=== PATIENT | male | born 1975 | race American Indian/Alaskan Native ===

== ENCOUNTER 2020-12-11 15:11 | Inpatient (IN) | payer MEDICAID ==
[2020-12-11] MEDS ORDERED: ONDANSETRON 4 MG/2 ML INJ IV ONE (21:37)
--- NOTE | 2020-12-11 21:42 | Emergency Department Report ---
ED General Adult HPI - General Chief complaint: Altered Mental Status Stated complaint: Patient is altered, and is grunting. PUI?: No Time Seen by Provider: 12/11/20 21:21 Source: EMS ( EMS documentation not available at time of chart dictation ), RN notes reviewed Mode of arrival: Stretcher Limitations: Altered Mental Status, Physical Limitation - History of Present Illness Initial comments: The patient was evaluated in the emergency department for symptoms described in the history of present illness. He/she was evaluated in the context of the global COVID-19 pandemic, which necessitated consideration that the patient mi ght be at risk for infection with the virus that causes COVID-19. Institutional protocols and algorithms that pertain to the evaluation of patients at risk for COVID-19 are in a state of rapid change based on information released by regulatory bodies including the CDC and federal and state organizations. These policies and algorithms were followed during the patient's care in the emergency department. Please note that these policies, procedures and recommendations changed on a rapid basis. Patient is a 45-year-old gentleman. The patient is altered. He is not accompanied by friends or family at this time for collateral information. He appears to have a history of diabetes, hypertension, and end-stage renal disease on hemodialysis. It is not known who or where provides his dialysis. It is not known what days he receives dialysis. Nursing team informed him that patient was brought here by EMS on a backboard for hyperglycemia. EMS documentation is not available at this time for my review. It is not known who contacted 911. Currently, the patient is awake, but will not or cannot answer my questions. He grunts intermittently. He will move 4 extremities. He was rolled off of the backboard, and said "hey man, leave me alone!" Additional history is not available at this time. Patient is not able to describe qualitative nature of symptoms, exacerbating factors, leaving factors, or aggravating factors -: unknown Severity scale (0 -10): 5 - Related Data Allergies Allergy/AdvReac Type Severity Reaction Status Date / Time Unable to Assess Allergy Verified 12/11/20 22:54 ED Review of Systems ROS: Stated complaint: HYPERGLYCEMIA Other details as noted in HPI Comment: Unobtainable due to pts medical conditions ED Past Medical Hx - Past Medical History Previous Medical History?: Yes Hx Hypertension: Yes Hx Congestive Heart Failure: Yes Hx Diabetes: Yes Hx GERD: Yes Hx Renal Disease: Yes Additional medical history: AMPUTEE - Surgical History Past Surgical History?: Yes Additional Surgical History: AMBUTEE ED Physical Exam - General Limitations: Altered Mental Status, Physical Limitation General appearance: obese, other (The patient is awake. The patient is minimally verbal. He is grunting. When turned over, he yells at the examiner) - Head Head exam: Present: atraumatic, normocephalic - Eye Eye exam: Present: normal appearance, EOMI, other (Patient closes his eyes very tightly when examined, not able to assess pupillary response) - ENT ENT exam: Present: normal exam, normal orophraynx, mucous membranes moist, normal external ear exam - Neck Neck exam: Present: normal inspection, full ROM. Absent: tenderness, meningismus - Respiratory Respiratory exam: Present: decreased breath sounds. Absent: respiratory distress, wheezes, rales, rhonchi, stridor - Cardiovascular Cardiovascular Exam: Present: normal rhythm, tachycardia, normal heart sounds. Absent: bradycardia, irregular rhythm, systolic murmur, diastolic murmur, rubs, gallop - GI/Abdominal GI/Abdominal exam: Present: soft. Absent: distended, tenderness, guarding, rebound, rigid, pulsatile mass - Rectal Rectal exam: Present: normal inspection - exam: Present: normal inspection External exam: Present: normal external exam - Extremities Exam Extremities exam: Present: normal inspection, full ROM, pedal edema (2+ edema in the right lower extremity. Left lower extremity status post below-knee amputation. Chronic venous stasis noted in the bilateral lower extremities. Left upper extremity fistula noted, without redness, pus or streaking. There is an appropriate thrill), other (2+ pulses noted in the bilateral upper and lower extremities. 2+ pulses noted in the bilateral upper and lower extremities. There is no palpable cord. negative Homans sign. Muscular compartments are soft. The pelvis is stable.) - Back Exam Back exam: Present: normal inspection. Absent: tenderness, CVA tenderness (R), CVA tenderness (L), paraspinal tenderness, vertebral tenderness - Neurological Exam Neurological exam: Present: altered, other (The patient moves 4 extremities. There is no facial droop. The patient exclaims "hey" when examined. Detailed neurologic examination not possible secondary to alteration mental status) - Skin Skin exam: Present: warm, dry, intact, normal color. Absent: rash ED Course Vital Signs 12/11/20 12/12/20 21:20 00:57 Temperature 98.2 F 97.5 F L Pulse Rate 87 82 Respiratory 20 21 Rate Blood Pressure 151/75 160/76 [Right] O2 Sat by Pulse 100 98 Oximetry - Reevaluation(s) Reevaluation #1: 12/11/20 21:42 Differential diagnosis, including but not limited to: Toxic encephalopathy, metabolic encephalopathy, hypoglycemia, intracranial hemorrhage, stroke, pneumonia, urinary tract infection Assessment and plan: 45-year-old gentleman, moving 4 extremities, altered, last known well time not known, with alteration in mental status, and report of hyperglycemia as per nursing team. Place patient on cardiac rn. Obtain CT scan of the brain, cervical spine, x-ray of the chest and pelvis, EKG, urinalysis, chest x-ray, appropriate laboratory studies. Reassess after initial data points. Anticipate admission to the medical service. At the moment, do not have phone numbers or contact information for collateral information. Have requested that registration team obtain EMS documentation, and/or obtain contact information of friends/family/significant other. 12/11/20 21:43 12/11/20 21:46 called [phone]. No answer. This is the phone number that was listed on patient's registration sheet from EMS. EMS documentation not available. The registration team informs me that the EMS team that brought this patient off did not leave a report and they have not faxed the report. At this point in time, we are not able to obtain additional contact or demographic information. Reevaluation #2: 12/11/20 22:32 Laboratory studies demonstrate macrocytic anemia, pseudohyponatremia, hyperglycemia, metabolic acidosis, lactic acid acidosis, this is most likely hyperosmolar hyperglycemia. We will start gentle fluids, 500 cc, start empiric antibiotics, await urinalysis. We will also start ceftriaxone empirically, admit to the ICU with critical care consultation, and will also obtain nephrology consultation. We do appreciate lactic acid of 5, however, given underlying renal failure, dialysis requirements, patient will receive IV fluids in small aliquots so as not to fluid overload, will defer to inpatient team to further manage fluid requirements. Hospital physician, Dr. S Gbenle to admit to ICU This is most likely hyperglycemic hyperosmolar coma, secondary to poorly controlled diabetes. I do suspect that lactic acidosis is a type II lactic acidosis. 12/11/20 22:35 12/11/20 23:02 CT scan brain and cervical spine negative for acute traumatic findings. Incidental findings appreciated in left superior mediastinum noted. These are chronic in nature. This does not appear to be acutely infected This may be further addressed once this patient's acute bleeding emergent condition has been stabilized. Reevaluation #3: 12/12/20 03:41 Straight catheterization performed by nursing team. No urine was returned. X- ray of the chest suggest multi lobar pneumonia. Patient also being worked up for Covid. Given concern for Covid, and predilection to develop acute respiratory distress syndrome, in conjunction with underlying end-stage renal disease, I will withhold additional fluid at this time, and defer to the inpatient team to further manage the patient's fluid requirements - Consultations Consultation #1: 12/11/20 23:03 Discussed history, physical, laboratory studies and overall clinical impression with nephrology on-call, Dr. Cesar. His group will follow in consultation, and arrange for hemodialysis if/when it becomes necessary. Consultation #2: 12/11/20 23:05 Discussed history, physical, laboratory studies, imaging studies and overall clinical impression with critical care physician on-call, Dr. Oneill He is in agreement with the plan of care, and will follow alongside the caring team in the intensive care unit. - EJ/Peripheral Line Neck R Time Out Performed: Yes Indications: multiple IV sites needed Skin Cleansed in Sterile Fashion: Yes Size: 20 Dressing Placed: Tegaderm Patient Tolerated Procedure: well ED Medical Decision Making - Lab Data Result diagrams: 12/11/20 21:48 12/12/20 01:38 Vital Signs 12/11/20 21:20 Temperature 98.2 F Pulse Rate 87 Respiratory 20 Rate Blood Pressure 151/75 [Right] O2 Sat by Pulse 100 Oximetry Lab Results 12/11/20 12/11/20 12/11/20 Range/Units 21:48 21:48 21:48 WBC 6.7 (4.5-11.0) K/mm3 RBC 2.46 L (3.65-5.03) M/mm3 Hgb 8.3 L (11.8-15.2) gm/dl Hct 27.2 L (35.5-45.6) % MCV 111 H (84-94) fl MCH 34 H (28-32) pg MCHC 30 L (32-34) % RDW 18.2 H (13.2-15.2) % Plt Count 154 (140-440) K/mm3 Lymph % (Auto) 11.5 L (13.4-35.0) % Toombs % (Auto) 8.9 H (0.0-7.3) % Eos % (Auto) 0.2 (0.0-4.3) % Baso % (Auto) 0.8 (0.0-1.8) % Lymph # (Auto) 0.8 L (1.2-5.4) K/mm3 Toombs # (Auto) 0.6 (0.0-0.8) K/mm3 Eos # (Auto) 0.0 (0.0-0.4) K/mm3 Baso # (Auto) 0.1 (0.0-0.1) K/mm3 Seg Neutrophils % 78.6 H (40.0-70.0) % Seg Neutrophils # 5.3 (1.8-7.7) K/mm3 APTT 29.7 (24.2-36.6) Sec. VBG pH (7.320-7.420) Sodium 125 L (137-145) mmol/L Potassium 4.9 (3.6-5.0) mmol/L Chloride 87.0 L (98-107) mmol/L Carbon Dioxide 16 L (22-30) mmol/L Anion Gap 27 mmol/L BUN 19 (9-20) mg/dL Creatinine 6.4 H (0.8-1.3) mg/dL Estimated GFR 12 ml/min BUN/Creatinine Ratio 3 % Calcium 8.7 (8.4-10.2) mg/dL Total Bilirubin 0.80 (0.1-1.2) mg/dL AST 20 (5-40) units/L ALT 6 L (7-56) units/L Alkaline Phosphatase 101 (35-129) units/L Total Creatine Kinase 277 H (55-170) units/L Total Protein 8.8 H (6.3-8.2) g/dL Albumin 3.3 L (3.9-5) g/dL Albumin/Globulin Ratio 0.6 % Salicylates (2.8-20.0) mg/dL Acetaminophen (10.0-30.0) ug/mL Plasma/Serum Alcohol (0-0.07) % 12/11/20 12/11/20 12/11/20 Range/Units 21:48 21:48 21:48 WBC (4.5-11.0) K/mm3 RBC (3.65-5.03) M/mm3 Hgb (11.8-15.2) gm/dl Hct (35.5-45.6) % MCV (84-94) fl MCH (28-32) pg MCHC (32-34) % RDW (13.2-15.2) % Plt Count (140-440) K/mm3 Lymph % (Auto) (13.4-35.0) % Toombs % (Auto) (0.0-7.3) % Eos % (Auto) (0.0-4.3) % Baso % (Auto) (0.0-1.8) % Lymph # (Auto) (1.2-5.4) K/mm3 Toombs # (Auto) (0.0-0.8) K/mm3 Eos # (Auto) (0.0-0.4) K/mm3 Baso # (Auto) (0.0-0.1) K/mm3 Seg Neutrophils % (40.0-70.0) % Seg Neutrophils # (1.8-7.7) K/mm3 APTT (24.2-36.6) Sec. VBG pH (7.320-7.420) Sodium (137-145) mmol/L Potassium (3.6-5.0) mmol/L Chloride (98-107) mmol/L Carbon Dioxide (22-30) mmol/L Anion Gap mmol/L BUN (9-20) mg/dL Creatinine (0.8-1.3) mg/dL Estimated GFR ml/min BUN/Creatinine Ratio % Calcium (8.4-10.2) mg/dL Total Bilirubin (0.1-1.2) mg/dL AST (5-40) units/L ALT (7-56) units/L Alkaline Phosphatase (35-129) units/L Total Creatine Kinase (55-170) units/L Total Protein (6.3-8.2) g/dL Albumin (3.9-5) g/dL Albumin/Globulin Ratio % Salicylates < 0.3 L (2.8-20.0) mg/dL Acetaminophen 5.0 L (10.0-30.0) ug/mL Plasma/Serum Alcohol < 0.01 (0-0.07) % 12/11/20 Range/Units 21:48 WBC (4.5-11.0) K/mm3 RBC (3.65-5.03) M/mm3 Hgb (11.8-15.2) gm/dl Hct (35.5-45.6) % MCV (84-94) fl MCH (28-32) pg MCHC (32-34) % RDW (13.2-15.2) % Plt Count (140-440) K/mm3 Lymph % (Auto) (13.4-35.0) % Toombs % (Auto) (0.0-7.3) % Eos % (Auto) (0.0-4.3) % Baso % (Auto) (0.0-1.8) % Lymph # (Auto) (1.2-5.4) K/mm3 Toombs # (Auto) (0.0-0.8) K/mm3 Eos # (Auto) (0.0-0.4) K/mm3 Baso # (Auto) (0.0-0.1) K/mm3 Seg Neutrophils % (40.0-70.0) % Seg Neutrophils # (1.8-7.7) K/mm3 APTT (24.2-36.6) Sec. VBG pH 7.329 (7.320-7.420) Sodium (137-145) mmol/L Potassium (3.6-5.0) mmol/L Chloride (98-107) mmol/L Carbon Dioxide (22-30) mmol/L Anion Gap mmol/L BUN (9-20) mg/dL Creatinine (0.8-1.3) mg/dL Estimated GFR ml/min BUN/Creatinine Ratio % Calcium (8.4-10.2) mg/dL Total Bilirubin (0.1-1.2) mg/dL AST (5-40) units/L ALT (7-56) units/L Alkaline Phosphatase (35-129) units/L Total Creatine Kinase (55-170) units/L Total Protein (6.3-8.2) g/dL Albumin (3.9-5) g/dL Albumin/Globulin Ratio % Salicylates (2.8-20.0) mg/dL Acetaminophen (10.0-30.0) ug/mL Plasma/Serum Alcohol (0-0.07) % Vital Signs 12/11/20 21:20 Temperature 98.2 F Pulse Rate 87 Respiratory 20 Rate Blood Pressure 151/75 [Right] O2 Sat by Pulse 100 Oximetry - EKG Data -: EKG Interpreted by In EKG shows normal: sinus rhythm Rate: normal - EKG Data When compared to previous EKG there are: previous EKG unavailable 12/11/20 22:29 EKG is interpreted at 22: 24 Sinus rhythm, normal P wave axis. Normal axis, ventricular rate 88 bpm. QTC 498 ms. Low voltage high lateral leads. Motion artifact, nonspecific T wave abnormalities. There is no prior for comparison. This is an abnormal EKG. This is not a STEMI. - Radiology Data Radiology results: pending, report reviewed, image reviewed [facility] [address] [place] [address] Cat Scan Report Signed Patient: JAYE PADILLA MR#: [id number] 60 : 1975 Acct:[id number] Age/Sex: 45 / M ADM Date: 12/11/20 Loc: ED Attending Dr: Ordering Physician: ENDY WHITMAN MD Date of Service: 12/11/20 Procedure(s): CT head/brain wo con Accession Number(s): [id number] cc: ENDY WHITMAN MD CT HEAD WITHOUT CONTRAST INDICATION / CLINICAL INFORMATION: Altered Mental Status. Trauma TECHNIQUE: All CT scans at this location are performed using CT dose red uction for ALARA by means of automated exposure control. COMPARISON: None available. FINDINGS: HEMORRHAGE: None. EXTRA-AXIAL SPACES: Normal in size and morphology for the patient's age. VENTRICULAR SYSTEM: Normal in size and morphology for the patient's age. CEREBRAL PARENCHYMA: No significant abnor mality. No acute territorial infarct. MIDLINE SHIFT OR HERNIATION: None. CEREBELLUM / BRAINSTEM: No significant abnormality. ORBITS: Normal as visualized. SOFT TISSUES of HEAD: No significant abnormality. CALVARIUM: No significant abnormality. PARANASAL SINUSES / MASTOID AIR CELLS: Normal as visualized. ADDITIONAL FINDINGS: None. IMPRESSION: 1. No acute intracranial abnormality. Signer Name: Moises Coelho MD Signed: 12/11/2020 10:34 PM Workstation Name: [id number] Transcribed By: TL Dictated By: Moises Coelho MD Electronically Authenticated By: Moises Coelho MD Signed Date/Time: 12/11/202233 DD/ [address] CERVICAL SPINE WITHOUT CONTRAST INDICATION: Altered Mental Status, uncertian if there is trauma. Neck pain TECHNIQUE: All CT scans at [facility] are performed using CT dose reduction for ALARA by means of automated exposure control. Axial CT images were obtained through the cervical spine. Sagittal and coronal reformatted images were produced. COMPARISON: None available. FINDINGS: Fracture: None. Subluxation: None. Spinal canal: No significant compromise. Disc spaces: Normal. Facet joints: Normal. Paraspinal soft tissues: No soft tissue swelling. Normal. Additional findings: There is a ribbonlike radiopaque foreign body within the left superior mediastinum adjacent to the left internal jugular vein possibly secondary to retained lap pad/sponge. Lung apices: Normal. IMPRESSION: 1. No cervical fracture 2. Possible retained lap pad/sponge described above. Please correlate clinically with prior surgical history. No gossypiboma visualized Signer Name: Moises Coelho MD Signed: 12/11/2020 9:40 PM Workstation Name: [id number] [facility] [address] [place] [address] XRay Report Signed Patient: JAYE PADILLA MR#: [id number] 60 : 1975 Acct:[id number] Age/Sex: 45 / M ADM Date: 12/11/20 Loc: CC1 HOLDCCU1-[address]: YAHAIRA YAP MD Ordering Physician: ENDY WHITMAN MD Date of Service: 12/11/20 Procedure(s): XR chest 1V ap Accession Number(s): [id number] cc: ENDY WHITMAN MD Fluoro Time In Minutes: CHEST 1 VIEW 12/11/2020 10:17 PM INDICATION / CLINICAL INFORMATION: Altered Mental Status. COMPARISON: None available. FINDINGS: SUPPORT DEVICES: None. HEART / MEDIASTINUM: No significant abnormality. LUNGS / PLEURA: Moderate bilateral parenchymal disease No pneumothorax. ADDITIONAL FINDINGS: No significant additional findings. IMPRESSIO N: 1. Bilateral pneumonia Signer Name: Moises Coelho MD Signed: 12/11/2020 11:22 PM Workstation Name: [id number] Transcribed By: TL Dictated By: Moises Coelho MD Electronically Authenticated By: Moises Coelho MD Signed Date/Time: 12/11/202321 DD/ 20 [facility] [address] [place] [address] XRay Report Signed Patient: JAYE PADILLA MR#: [id number] 60 : 1975 Acct:[id number] Age/Sex: 45 / M ADM Date: 12/11/20 Loc: CC1 HOLDCCU1-[address]: YAHAIRA YAP MD Ordering Physician: ENDY WHITMAN MD Date of Service: 12/11/20 Procedure(s): XR pelvis 1-2V Accession Number(s): [id number] cc: ENDY WHITMAN MD Fluoro Time In Minutes: AP PELVIS INDICATION: ams on back board uncertain if trauma. COMPARISON: None available. FINDINGS: No fracture or dislocation is seen within the pelvis or either hip. Mild bilateral hip degenerative arthrosis is present. Osteopenia. Signer Name: Moises Coelho MD Signed: 12/11/2020 11:21 PM Workstation Name: [id number] Transcribed By: TL Dictated By: Moises Coelho MD Electronically Authenticated By: Moises Coelho MD Signed Date/Time: 12/11/202320 DD/ 20 Critical Care Time: Yes Critical care time in (mins) excluding proc time.: 45 Critical care attestation.: If time is entered above; I have spent that time in minutes in the direct care of this critically ill patient, excluding procedure time. ED Disposition Clinical Impression: End stage renal disease, Acute encephalopathy, Macrocytic anemia, Metabolic acidosis, Hyperosmolar hyperglycemic state (HHS) Disposition: ADMITTED INPATIENT Is pt being admited?: Yes Does the pt Need Aspirin: No Condition: Critical
[2020-12-11 22:08] LABS: Basophils # (Auto) 0.1 K/mm3 (0.0-0.1); Basophils % (Auto) 0.8 % (0.0-1.8); Eosinophils % (Auto) 0.2 % (0.0-4.3); Hematocrit 27.2 % (35.5-45.6); Hemoglobin 8.3 gm/dl (11.8-15.2); Lymphocytes # (Auto) 0.8 K/mm3 (1.2-5.4); Lymphocytes % (Auto) 11.5 % (13.4-35.0); Mean Corpuscular HGB Conc 30 % (32-34); Mean Corpuscular Volume 111 fl (84-94); Monocytes # (Auto) 0.6 K/mm3 (0.0-0.8); Monocytes % (Auto) 8.9 % (0.0-7.3); Platelet Count 154 K/mm3 (140-440); Red Blood Count 2.46 M/mm3 (3.65-5.03); Red Cell Distribution Width 18.2 % (13.2-15.2)
[2020-12-11 22:23] LABS: Albumin 3.3 g/dL (3.9-5); Calcium 8.7 mg/dL (8.4-10.2); Partial Thromboplastin Time 29.7 Sec. (24.2-36.6)
[2020-12-11] MEDS ORDERED: INSULIN REGULAR, HUMAN 100 UNITS/1 ML IV ONE (22:34)
[2020-12-11] MEDS ORDERED: cefTRIAXone/NS 1 GM/50 ML 1 GM/50 ML BAG IV ONE (22:34)
[2020-12-11] MEDS ORDERED: DEXTROSE 50% IN WATER (25GM) 50 ML SYRINGE IV PRN (22:34)
[2020-12-11] MEDS ORDERED: SODIUM CHLORIDE 0.9% 500 ML 500 ML IV ONE (22:34)
--- NOTE | 2020-12-11 22:38 | Cat Scan Report ---
CT HEAD WITHOUT CONTRAST INDICATION / CLINICAL INFORMATION: Altered Mental Status. Trauma TECHNIQUE: All CT scans at this location are performed using CT dose reduction for ALARA by means of automated e xposure control. COMPARISON: None available. FINDINGS: HEMORRHAGE: None. EXTRA-AXIAL SPACES: Normal in size and morphology for the patient's age. VENTRICULAR SYSTEM: Normal in size and morphology for the patient's age. CEREBRAL PARENCHYMA: No significant abnormality. No acute territorial infarct. MIDLINE SHIFT OR HERNIATION: None. CEREBELLUM / BRAINSTEM: No significant abnormality. ORBITS: Normal as visualized. SOFT TISSUES of HEAD: No significant abnormality. CALVARIUM: No significant abnormality. PARANASAL SINUSES / MASTOID AIR CELLS: Normal as visualized. ADDITIONAL FINDINGS: None. IMPRESSION: 1. No acute intracranial abnormality. Signer Name: Moises Coelho MD Signed: 12/11/2020 10:34 PM Workstation Name: [id number]
--- NOTE | 2020-12-11 22:44 | Cat Scan Report ---
. CT CERVICAL SPINE WITHOUT CONTRAST INDICATION: Altered Mental Status, uncertian if there is trauma. Neck pain TECHNIQUE: All CT scans at this location are performed using CT dose reduction for ALARA by means of automated e xposure control. Axial CT images were obtained through the cervical spine. Sagittal and coronal reformatted images we re produced. COMPARISON: None available. FINDINGS: Fracture: None. Subluxation: None. Spinal canal: No significant compromise. Disc spaces: Normal. Facet joints: Normal. Paraspinal soft tissues: No soft tissue swelling. Normal. Additional findings: There is a ribbonlike radiopaque foreign body within the left superior mediastin um adjacent to the left internal jugular vein possibly secondary to retained lap pad/sponge. Lung apices: Normal. IMPRESSION: 1. No cervical fracture 2. Possible retained lap pad/sponge described above. Please correlate clinically with prior surgical history. No gossypiboma visualized Signer Name: Moises Coelho MD Signed: 12/11/2020 10:40 PM Workstation Name: [id number]
[2020-12-11 22:53] LABS: INR 1.3 (0.87-1.13)
[2020-12-11] MEDS ORDERED: SODIUM CHLORIDE 0.9% 1000 ML 1,000 ML ONE (23:00)
[2020-12-11] MEDS ORDERED: INSULIN REGULAR, HUMAN 100 UNITS in SODIUM CHLORIDE 0.9% 99 ML IV SCH (23:00)
[2020-12-11] MEDS ORDERED: D5W/0.45% NACL/KCL 20 MEQ 20 MEQ/1,000 ML BAG IV SCH (23:00)
[2020-12-11] MEDS ORDERED: MORPHINE 2 MG/1 ML INJ IV PRN (23:01)
[2020-12-11] MEDS ORDERED: MORPHINE 4 MG/1 ML INJ IV PRN (23:01)
[2020-12-11] MEDS ORDERED: ACETAMINOPHEN 325 MG/10.15 ML ORAL LIQD UNIT DOSE FEEDTUBE PRN (23:01)
--- NOTE | 2020-12-11 23:13 | History and Physical Report ---
History of Present Illness Date of examination: 12/11/20 Date of admission: 12/11/2020 Chief complaint: Altered mental Status History of present illness: 45-year-old -[place] male with significant past medical history of hypertension, congestive heart failure, GERD, end-stage renal disease on dialysis, diabetes mellitus and left below-knee amputation was brought into the emergency room by EMS today for altered mental status and elevated blood sugar. Most of the history was gotten from the ER staff as patient is unable to give any history. Family members were also not available. Upon arrival in the emergency room, patient has been intermittently awake but not able to give any history. Work-up however reveals hemoglobin of 8.3 and hematocrit of 27.2, sodium of 125, anion gap of 27 and a blood glucose of about 888. He had a lactic acidosis of 5.7 CT scan of the head shows no acute intracranial abnormality. Chest x-ray shows bilateral pneumonia. Patient is being admitted with acute metabolic encephalopathy, hyperosmolar nonketotic coma and bilateral pneumonia. We will also rule out for COVID-19. Past History Past Medical History: diabetes, dialysis, ESRD, hypertension, hyperlipidemia Past Surgical History: Other (Left arm AV fistula placement) Social history: other (Unknown) Family history: other (Unknown) Medications and Allergies Allergies Allergy/AdvReac Type Severity Reaction Status Date / Time Unable to Assess Allergy Verified 12/11/20 22:54 Active Meds: Active Medications Acetaminophen (Acetaminophen 325 Mg/10.15 Ml Oral Liqd Unit Dose) 650 mg FEEDTUBE Q6H PRN PRN Reason: Pain MILD(1-3)/Fever >100.5/GILLIAM Dextrose (Dextrose 50% In Water (25gm) 50 Ml Syringe) 0 ml IV Q30MIN PRN; Protocol PRN Reason: Hypoglycemia Insulin Human Regular 100 (units/ Sodium Chloride) 100 mls @ 1 mls/hr IV TITR KARINA; Protocol Potassium Chloride/Dextrose/Sod Cl (D5w/0.45% Nacl/Kcl 20 Meq) 20 meq in 1,000 mls @ 125 mls/hr IV DIRECT KARINA Sodium Chloride (Nacl 0.9% 500 Ml) 500 mls @ 999 mls/hr IV ONCE ONE Stop: 12/11/20 23:04 Ceftriaxone Sodium (Rocephin/Ns 1 Gm/50 Ml) 1 gm in 50 mls @ 100 mls/hr IV ONCE ONE; Protocol Stop: 12/11/20 23:03 Sodium Chloride (Nacl 0.9% 1000 Ml) 1,000 mls @ 150 mls/hr IV DIRECT KARINA Insulin Human Regular (Insulin Regular, Human 100 Units/1 Ml) 8 units IV ONCE ONE Stop: 12/11/20 22:35 Morphine Sulfate (Morphine 2 Mg/1 Ml Inj) 2 mg IV Q4H PRN PRN Reason: Pain, Moderate (4-6) Morphine Sulfate (Morphine 4 Mg/1 Ml Inj) 4 mg IV Q4H PRN PRN Reason: Pain , Severe (7-10) Ondansetron HCl (Ondansetron 4 Mg/2 Ml Inj) 4 mg IV ONCE ONE Stop: 12/11/20 21:38 Last Admin: 12/11/20 22:55 Dose: 4 mg Documented by: Sodium Chloride (Sodium Chloride 0.9% 10 Ml Flush Syringe) 10 ml IV BID KARINA Sodium Chloride (Sodium Chloride 0.9% 10 Ml Flush Syringe) 10 ml IV PRN PRN PRN Reason: LINE FLUSH Review of Systems ROS unobtainable: due to mental status Exam - Constitutional Vitals: Temp Pulse Resp BP Pulse Ox 98.2 F 87 20 151/75 100 12/11/20 21:20 12/11/20 21:20 12/11/20 21:20 12/11/20 21:20 12/11/20 21:20 General appearance: Present: no acute distress, obese - EENT Eyes: Present: PERRL, EOM intact. Absent: scleral icterus ENT: hearing intact, clear oral mucosa, dentition normal - Neck Neck: Present: supple, normal ROM - Respiratory Respiratory effort: normal Respiratory: bilateral: CTA - Cardiovascular Rhythm: regular Heart Sounds: Present: S1 & S2, systolic murmur (Soft Systolic ). Absent: gallop, diastolic murmur, rub, click - Extremities Extremities: no ischemia, pulses intact, pulses symmetrical, No edema, normal temperature, normal color, Full ROM Extremity abnormal: other (Left below the knee amputation) Peripheral Pulses: within normal limits - Abdominal General gastrointestinal: Present: soft, non-tender, non-distended, normal bowel sounds. Absent: mass - Integumentary Integumentary: Present: clear, warm, dry, normal turgor. Absent: rash - Musculoskeletal Musculoskeletal: strength equal bilaterally, other (Left below-knee amputation) - Psychiatric Psychiatric: cooperative, agitated (Mildly agitated), other (Non-communicative) - Neurologic Neurologic: CNII-XII intact, no focal deficits, moves all extremities - Additional findings Additional findings: Skin: Left upper arm AV fistula with palpable thrill. Results - Labs CBC & Chem 7: 12/13/20 05:58 12/12/20 13:49 Labs: Abnormal lab results 12/11/20 12/11/20 12/11/20 Range/Units 21:48 21:48 21:48 RBC 2.46 L (3.65-5.03) M/mm3 Hgb 8.3 L (11.8-15.2) gm/dl Hct 27.2 L (35.5-45.6) % MCV 111 H (84-94) fl MCH 34 H (28-32) pg MCHC 30 L (32-34) % RDW 18.2 H (13.2-15.2) % Lymph % (Auto) 11.5 L (13.4-35.0) % Harmon % (Auto) 8.9 H (0.0-7.3) % Lymph # (Auto) 0.8 L (1.2-5.4) K/mm3 Seg Neutrophils % 78.6 H (40.0-70.0) % PT 16.8 H (12.2-14.9) Sec. INR 1.30 H (0.87-1.13) Sodium 125 L (137-145) mmol/L Chloride 87.0 L (98-107) mmol/L Carbon Dioxide 16 L (22-30) mmol/L Creatinine 6.4 H (0.8-1.3) mg/dL Glucose 888 H* (75-100) mg/dL Lactic Acid (0.7-2.0) mmol/L ALT 6 L (7-56) units/L Total Creatine Kinase 277 H (55-170) units/L Total Protein 8.8 H (6.3-8.2) g/dL Albumin 3.3 L (3.9-5) g/dL Salicylates (2.8-20.0) mg/dL Acetaminophen (10.0-30.0) ug/mL 12/11/20 12/11/20 12/11/20 Range/Units 21:48 21:48 21:48 RBC (3.65-5.03) M/mm3 Hgb (11.8-15.2) gm/dl Hct (35.5-45.6) % MCV (84-94) fl MCH (28-32) pg MCHC (32-34) % RDW (13.2-15.2) % Lymph % (Auto) (13.4-35.0) % Harmon % (Auto) (0.0-7.3) % Lymph # (Auto) (1.2-5.4) K/mm3 Seg Neutrophils % (40.0-70.0) % PT (12.2-14.9) Sec. INR (0.87-1.13) Sodium (137-145) mmol/L Chloride (98-107) mmol/L Carbon Dioxide (22-30) mmol/L Creatinine (0.8-1.3) mg/dL Glucose (75-100) mg/dL Lactic Acid 5.70 H* (0.7-2.0) mmol/L ALT (7-56) units/L Total Creatine Kinase (55-170) units/L Total Protein (6.3-8.2) g/dL Albumin (3.9-5) g/dL Salicylates < 0.3 L (2.8-20.0) mg/dL Acetaminophen 5.0 L (10.0-30.0) ug/mL Assessment and Plan - Patient Problems (1) Hyperosmolar hyperglycemic state (HHS) Current Visit: Yes Status: Acute Plan to address problem: Patient admitted and placed on insulin drip and IV fluid. We will monitor Accu-Cheks closely. (2) Acute encephalopathy Current Visit: Yes Status: Acute Plan to address problem: Possibly secondary to underlying pneumonia and on the metabolic acidosis. (3) Pneumonia Current Visit: Yes Status: Acute Plan to address problem: Patient placed on empiric IV antibiotics. We also placed on isolation precautions to rule out COVID-19 . Consult placed to infectious disease for evaluation. (4) End stage renal disease Current Visit: Yes Status: Acute Plan to address problem: We will place consult to nephrology for evaluation. (5) Macrocytic anemia Current Visit: Yes Status: Acute Plan to address problem: Possibly chronic. Will monitor CBC. (6) DVT prophylaxis Current Visit: Yes Status: Acute Plan to address problem: Patient placed on subcutaneous heparin. (7) Full code status Current Visit: Yes Status: Acute Plan to address problem: Patient is full code.
[2020-12-11] MEDS ORDERED: SODIUM CHLORIDE 0.9% 1000 ML 1,000 ML IV SCH (23:15)
--- NOTE | 2020-12-11 23:26 | XRay Report ---
CHEST 1 VIEW 12/11/2020 10:17 PM INDICATION / CLINICAL INFORMATION: Altered Mental Status. COMPARISON: None available. FINDINGS: SUPPORT DEVICES: None. HEART / MEDIASTINUM: No significant abnormality. LUNGS / PLEURA: Moderate bilateral parenchymal disease No pneumothorax. ADDITIONAL FINDINGS: No significant additional findings. IMPRESSION: 1. Bilateral pneumonia Signer Name: Moises Coelho MD Signed: 12/11/2020 11:22 PM Workstation Name: [id number]
--- NOTE | 2020-12-11 23:26 | XRay Report ---
AP PELVIS INDICATION: ams on back board uncertain if trauma. COMPARISON: None available. FINDINGS: No fracture or dislocation is seen within the pelvis or either hip. Mild bilateral hip degenerative a rthrosis is present. Osteopenia. Signer Name: Moises Coelho MD Signed: 12/11/2020 11:21 PM Workstation Name: [id number]
[2020-12-11] MEDS ORDERED: AZITHROMYCIN/NS 500 MG/250 ML 500 MG/250 ML BAG IV ONE (23:50)
[2020-12-12] MEDS ORDERED: METOCLOPRAMIDE 10 MG/2 ML INJ IV PRN (01:06)
[2020-12-12] MEDS: METOCLOPRAMIDE 10 MG/2 ML INJ IV PRN (01:21)
[2020-12-12 02:14] LABS: Calcium 8.4 mg/dL (8.4-10.2)
[2020-12-12] MEDS: HEPARIN 5,000 UNIT/1 ML VIAL SUB-Q SCH ×2 (06:01→13:45)
[2020-12-12] MEDS ORDERED: SODIUM CHLORIDE 0.9% 100 ML IV PRN (08:17)
[2020-12-12] MEDS ORDERED: EPOETIN ALFA-EPBX 20,000 UNIT/1 ML VIAL IV PRN (08:17)
--- NOTE | 2020-12-12 08:19 | Consultation ---
History of Present Illness - Reason for Consult Consult date: 12/12/20 Requesting physician: ENDY WHITMAN - History of Present Illness 45-year-old male with a history of end-stage renal disease presumably secondary to diabetic nephropathy/hypertensive nephrosclerosis. Brought to the hospital on account of altered mental status. Patient is not able to give a history. No family available to give a history. EMS found him to be quite hyperglycemic. Patient grunts, speaks but conversation is confused. Blood sugar was high at 723 mg/dL with sodium low at 129 mmol/L. I am consulted to provide dialysis and manage fluid and electrolyte abnormalities. Past History Past Medical History: diabetes, dialysis, ESRD, hypertension, hyperlipidemia Past Surgical History: Other (Left arm AV fistula placement, left below knee amputation) Social history: other (Unknown) Family history: other (Unknown) Medications and Allergies Allergies Allergy/AdvReac Type Severity Reaction Status Date / Time Unable to Assess Allergy Verified 12/11/20 22:54 Active Meds: Active Medications Acetaminophen (Acetaminophen 325 Mg/10.15 Ml Oral Liqd Unit Dose) 650 mg FEEDTUBE Q6H PRN PRN Reason: Pain MILD(1-3)/Fever >100.5/GILLIAM Dextrose (Dextrose 50% In Water (25gm) 50 Ml Syringe) 0 ml IV Q30MIN PRN; Protocol PRN Reason: Hypoglycemia Heparin Sodium (Porcine) (Heparin 5,000 Unit/1 Ml Vial) 5,000 unit SUB-Q Q8HR KARINA Last Admin: 12/12/20 06:01 Dose: 5,000 unit Documented by: Insulin Human Regular 100 (units/ Sodium Chloride) 100 mls @ 1 mls/hr IV TITR KARINA; Protocol Last Titration: 12/12/20 07:14 Dose: 6 units/hr, 6 mls/hr Documented by: Potassium Chloride/Dextrose/Sod Cl (D5w/0.45% Nacl/Kcl 20 Meq) 20 meq in 1,000 mls @ 125 mls/hr IV DIRECT KARINA Sodium Chloride (Nacl 0.9% 1000 Ml) 1,000 mls @ 150 mls/hr IV DIRECT KARINA Last Admin: 12/12/20 00:51 Dose: 150 mls/hr Documented by: Ceftriaxone Sodium (Rocephin/Ns 2 Gm/100 Ml) 2 gm in 100 mls @ 200 mls/hr IV Q24H KARINA; Protocol Azithromycin (Zithromax/Ns) 500 mg in 250 mls @ 250 mls/hr IV Q24H KARINA Metoclopramide HCl (Metoclopramide 10 Mg/2 Ml Inj) 5 mg IV Q6H PRN PRN Reason: Nausea And Vomiting Last Admin: 12/12/20 01:21 Dose: 5 mg Documented by: Morphine Sulfate (Morphine 2 Mg/1 Ml Inj) 2 mg IV Q4H PRN PRN Reason: Pain, Moderate (4-6) Morphine Sulfate (Morphine 4 Mg/1 Ml Inj) 4 mg IV Q4H PRN PRN Reason: Pain , Severe (7-10) Sodium Chloride (Sodium Chloride 0.9% 10 Ml Flush Syringe) 10 ml IV BID KARINA Sodium Chloride (Sodium Chloride 0.9% 10 Ml Flush Syringe) 10 ml IV PRN PRN PRN Reason: LINE FLUSH Review of Systems ROS unobtainable: due to mental status Exam - Vital Signs Vital signs: Vital Signs Temp Pulse Resp BP Pulse Ox 98.2 F 87 20 151/75 100 12/11/20 21:20 12/11/20 21:20 12/11/20 21:20 12/11/20 21:20 12/11/20 21:20 - Physical Exam Narrative exam: patient was not examined at the bedside due to presenting with features suggestive of pneumonia during the Covid 19 pandemic as this was been excluded Results - Lab Results 12/13/20 05:58 12/13/20 05:58 Most recent lab results Calcium 9.0 mg/dL (8.4-10.2) 12/12/20 05:55 Phosphorus 3.30 mg/dL (2.5-4.5) 12/12/20 01:38 Magnesium 1.80 mg/dL (1.7-2.3) 12/12/20 01:38 Assessment and Plan - Patient Problems (1) Acute encephalopathy Current Visit: Yes Status: Acute Plan to address problem: toxic/metabolic encephalopathy. Suspect metabolic due to hyperglycemia and possible uremia. Follow-up mental status following dialysis and blood sugar management/control (2) Hyponatremia Current Visit: Yes Status: Acute Plan to address problem: factitious hyponatremia secondary to severe hyperglycemia. Follow-up sodium with correction of hyperglycemia (3) Hyperosmolar hyperglycemic state (HHS) Current Visit: Yes Status: Acute Plan to address problem: blood sugar management by primary attending. (4) Anemia in chronic kidney disease, on chronic dialysis Current Visit: Yes Status: Acute Plan to address problem: give erythropoietin on dialysis and follow-up hemoglobin (5) Type 2 diabetes mellitus with diabetic chronic kidney disease Current Visit: Yes Status: Acute Plan to address problem: Blood sugar management by primary attending. (6) Hypertensive chronic kidney disease with stage 5 chronic kidney disease or end stage renal disease Current Visit: Yes Status: Acute Plan to address problem: Monitor blood pressure on current medications (7) End stage renal disease Current Visit: Yes Status: Acute Plan to address problem: hemodialysis on a Friday, and Friday schedule. Reevaluate (8) Metabolic acidosis Current Visit: Yes Status: Acute Plan to address problem: follow bicarbonate postdialysis (9) Pneumonia Current Visit: Yes Status: Acute Plan to address problem: COVID 19 pneumonia being excluded. Empiric antibiotics per primary attending
--- NOTE | 2020-12-12 13:28 | Consultation ---
History of Present Illness - Reason for Consult Consult date: 12/12/20 b/l pna, PUI COVID Requesting physician: YAHAIRA YAP - History of Present Illness The patient is a 45-year-old male with hypertension, CHF, ESRD on HD, diabetes, left BKA admitted to the hospital with altered mental status. Patient was found to have hyponatremia, significant hyperglycemia and lactic acidosis. Admitted to the hospital as a COVID-19 PUI. Infectious diseases was consulted for ad ditional evaluation. Chest x-ray showed bilateral pneumonia. WBC normal. Review of Systems: reviewed in the chart, unable to obtain, minimize risk of transmission Past History Past Medical History: diabetes, dialysis, ESRD, hypertension, hyperlipidemia Past Surgical History: Other (Left arm AV fistula placement) Social history: other (Unknown) Family history: other (Unknown) Medications and Allergies Allergies Allergy/AdvReac Type Severity Reaction Status Date / Time Unable to Assess Allergy Verified 12/11/20 22:54 Active Meds: Active Medications Acetaminophen (Acetaminophen 325 Mg/10.15 Ml Oral Liqd Unit Dose) 650 mg FEEDTUBE Q6H PRN PRN Reason: Pain MILD(1-3)/Fever >100.5/GILLIAM Dextrose (Dextrose 50% In Water (25gm) 50 Ml Syringe) 0 ml IV Q30MIN PRN; Shira col PRN Reason: Hypoglycemia Heparin Sodium (Porcine) (Heparin 5,000 Unit/1 Ml Vial) 5,000 unit SUB-Q Q8HR KARINA Last Admin: 12/12/20 06:01 Dose: 5,000 unit Documented by: Insulin Human Regular 100 (units/ Sodium Chloride) 100 mls @ 1 mls/hr IV TITR KARINA; Protocol Last Titration: 12/12/20 12:07 Dose: 1 units/hr, 1 mls/hr Documented by: Potassium Chloride/Dextrose/Sod Cl (D5w/0.45% Nacl/Kcl 20 Meq) 20 meq in 1,000 mls @ 125 mls/hr IV DIRECT KARINA Last Admin: 12/12/20 08:45 Dose: 125 mls/hr Documented by: Sodium Chloride (Nacl 0.9% 1000 Ml) 1,000 mls @ 150 mls/hr IV DIRECT KARINA Last Admin: 12/12/20 00:51 Dose: 150 mls/hr Documented by: Ceftriaxone Sodium (Rocephin/Ns 2 Gm/100 Ml) 2 gm in 100 mls @ 200 mls/hr IV Q24H KARINA; Protocol Azithromycin (Zithromax/Ns) 500 mg in 250 mls @ 250 mls/hr IV Q24H KARINA Sodium Chloride (Nacl 0.9%) 100 mls @ 999 mls/hr IV BREANA PRN PRN Reason: Hypotension Metoclopramide HCl (Metoclopramide 10 Mg/2 Ml Inj) 5 mg IV Q6H PRN PRN Reason: Nausea And Vomiting Last Admin: 12/12/20 01:21 Dose: 5 mg Documented by: Morphine Sulfate (Morphine 2 Mg/1 Ml Inj) 2 mg IV Q4H PRN PRN Reason: Pain, Moderate (4-6) Morphine Sulfate (Morphine 4 Mg/1 Ml Inj) 4 mg IV Q4H PRN PRN Reason: Pain , Severe (7-10) Sodium Chloride (Sodium Chloride 0.9% 10 Ml Flush Syringe) 10 ml IV BID KARINA Last Admin: 12/12/20 09:50 Dose: 10 ml Documented by: Sodium Chloride (Sodium Chloride 0.9% 10 Ml Flush Syringe) 10 ml IV PRN PRN PRN Reason: LINE FLUSH Physical Examination - Physical Exam Narrative exam: Physical Exam (reviewed in chart to minimize risk of transmission) Constitutional: deferred Head, Ears, Nose: deferred Eyes: deferred Neck: deferred Oral: deferred Cardiovascular: deferred Respiratory: deferred GI: deferred Musculoskeletal: deferred Skin: deferred Hem/Lymphatic: deferred Psych: deferred Neurological: deferred - Constitutional Vitals: Vital Signs Temp Pulse Resp BP Pulse Ox 97.5 F L 83 22 153/88 100 12/12/20 00:57 12/12/20 13:23 12/12/20 13:23 12/12/20 13:23 12/12/20 13:23 Temperature -Last 24 Hours Temperature 97.5 F Temperature 98.2 F Results - Labs CBC & Chem 7: 12/11/20 21:48 12/12/20 05:55 Labs: Abnormal lab results 12/11/20 12/11/20 12/11/20 Range/Units 21:48 21:48 21:48 RBC 2.46 L (3.65-5.03) M/mm3 Hgb 8.3 L (11.8-15.2) gm/dl Hct 27.2 L (35.5-45.6) % MCV 111 H (84-94) fl MCH 34 H (28-32) pg MCHC 30 L (32-34) % RDW 18.2 H (13.2-15.2) % Lymph % (Auto) 11.5 L (13.4-35.0) % Yell % (Auto) 8.9 H (0.0-7.3) % Lymph # (Auto) 0.8 L (1.2-5.4) K/mm3 Seg Neutrophils % 78.6 H (40.0-70.0) % PT 16.8 H (12.2-14.9) Sec. INR 1.30 H (0.87-1.13) Sodium 125 L (137-145) mmol/L Chloride 87.0 L (98-107) mmol/L Carbon Dioxide 16 L (22-30) mmol/L Creatinine 6.4 H (0.8-1.3) mg/dL Glucose 888 H* (75-100) mg/dL POC Glucose (70-105) mg/dL Lactic Acid (0.7-2.0) mmol/L ALT 6 L (7-56) units/L Total Creatine Kinase 277 H (55-170) units/L Total Protein 8.8 H (6.3-8.2) g/dL Albumin 3.3 L (3.9-5) g/dL Salicylates (2.8-20.0) mg/dL Acetaminophen (10.0-30.0) ug/mL 12/11/20 12/11/20 12/11/20 Range/Units 21:48 21:48 21:48 RBC (3.65-5.03) M/mm3 Hgb (11.8-15.2) gm/dl Hct (35.5-45.6) % MCV (84-94) fl MCH (28-32) pg MCHC (32-34) % RDW (13.2-15.2) % Lymph % (Auto) (13.4-35.0) % Yell % (Auto) (0.0-7.3) % Lymph # (Auto) (1.2-5.4) K/mm3 Seg Neutrophils % (40.0-70.0) % PT (12.2-14.9) Sec. INR (0.87-1.13) Sodium (137-145) mmol/L Chloride (98-107) mmol/L Carbon Dioxide (22-30) mmol/L Creatinine (0.8-1.3) mg/dL Glucose (75-100) mg/dL POC Glucose (70-105) mg/dL Lactic Acid 5.70 H* (0.7-2.0) mmol/L ALT (7-56) units/L Total Creatine Kinase (55-170) units/L Total Protein (6.3-8.2) g/dL Albumin (3.9-5) g/dL Salicylates < 0.3 L (2.8-20.0) mg/dL Acetaminophen 5.0 L (10.0-30.0) ug/mL 12/12/20 12/12/20 12/12/20 Range/Units 00:06 01:24 01:38 RBC (3.65-5.03) M/mm3 Hgb (11.8-15.2) gm/dl Hct (35.5-45.6) % MCV (84-94) fl MCH (28-32) pg MCHC (32-34) % RDW (13.2-15.2) % Lymph % (Auto) (13.4-35.0) % Yell % (Auto) (0.0-7.3) % Lymph # (Auto) (1.2-5.4) K/mm3 Seg Neutrophils % (40.0-70.0) % PT (12.2-14.9) Sec. INR (0.87-1.13) Sodium (137-145) mmol/L Chloride (98-107) mmol/L Carbon Dioxide (22-30) mmol/L Creatinine (0.8-1.3) mg/dL Glucose (75-100) mg/dL POC Glucose > 600 H > 600 H (70-105) mg/dL Lactic Acid 5.70 H* (0.7-2.0) mmol/L ALT (7-56) units/L Total Creatine Kinase (55-170) units/L Total Protein (6.3-8.2) g/dL Albumin (3.9-5) g/dL Salicylates (2.8-20.0) mg/dL Acetaminophen (10.0-30.0) ug/mL 12/12/20 12/12/20 12/12/20 Range/Units 01:38 03:43 05:02 RBC (3.65-5.03) M/mm3 Hgb (11.8-15.2) gm/dl Hct (35.5-45.6) % MCV (84-94) fl MCH (28-32) pg MCHC (32-34) % RDW (13.2-15.2) % Lymph % (Auto) (13.4-35.0) % Yell % (Auto) (0.0-7.3) % Lymph # (Auto) (1.2-5.4) K/mm3 Seg Neutrophils % (40.0-70.0) % PT (12.2-14.9) Sec. INR (0.87-1.13) Sodium 129 L (137-145) mmol/L Chloride 91.3 L (98-107) mmol/L Carbon Dioxide 20 L (22-30) mmol/L Creatinine 6.7 H (0.8-1.3) mg/dL Glucose 723 H* (75-100) mg/dL POC Glucose 571 H 477 H (70-105) mg/dL Lactic Acid (0.7-2.0) mmol/L ALT (7-56) units/L Total Creatine Kinase (55-170) units/L Total Protein (6.3-8.2) g/dL Albumin (3.9-5) g/dL Salicylates (2.8-20.0) mg/dL Acetaminophen (10.0-30.0) ug/mL 12/12/20 12/12/20 12/12/20 Range/Units 05:55 05:55 05:58 RBC (3.65-5.03) M/mm3 Hgb (11.8-15.2) gm/dl Hct (35.5-45.6) % MCV (84-94) fl MCH (28-32) pg MCHC (32-34) % RDW (13.2-15.2) % Lymph % (Auto) (13.4-35.0) % Yell % (Auto) (0.0-7.3) % Lymph # (Auto) (1.2-5.4) K/mm3 Seg Neutrophils % (40.0-70.0) % PT (12.2-14.9) Sec. INR (0.87-1.13) Sodium 134 L (137-145) mmol/L Chloride 95.1 L (98-107) mmol/L Carbon Dioxide 21 L (22-30) mmol/L Creatinine 6.5 H (0.8-1.3) mg/dL Glucose 417 H (75-100) mg/dL POC Glucose 367 H (70-105) mg/dL Lactic Acid 5.20 H* (0.7-2.0) mmol/L ALT (7-56) units/L Total Creatine Kinase (55-170) units/L Total Protein (6.3-8.2) g/dL Albumin (3.9-5) g/dL Salicylates (2.8-20.0) mg/dL Acetaminophen (10.0-30.0) ug/mL 12/12/20 12/12/20 12/12/20 Range/Units 07:05 08:30 10:39 RBC (3.65-5.03) M/mm3 Hgb (11.8-15.2) gm/dl Hct (35.5-45.6) % MCV (84-94) fl MCH (28-32) pg MCHC (32-34) % RDW (13.2-15.2) % Lymph % (Auto) (13.4-35.0) % Yell % (Auto) (0.0-7.3) % Lymph # (Auto) (1.2-5.4) K/mm3 Seg Neutrophils % (40.0-70.0) % PT (12.2-14.9) Sec. INR (0.87-1.13) Sodium (137-145) mmol/L Chloride (98-107) mmol/L Carbon Dioxide (22-30) mmol/L Creatinine (0.8-1.3) mg/dL Glucose (75-100) mg/dL POC Glucose 339 H 252 H 181 H (70-105) mg/dL Lactic Acid (0.7-2.0) mmol/L ALT (7-56) units/L Total Creatine Kinase (55-170) units/L Total Protein (6.3-8.2) g/dL Albumin (3.9-5) g/dL Salicylates (2.8-20.0) mg/dL Acetaminophen (10.0-30.0) ug/mL 12/12/20 Range/Units 12:03 RBC (3.65-5.03) M/mm3 Hgb (11.8-15.2) gm/dl Hct (35.5-45.6) % MCV (84-94) fl MCH (28-32) pg MCHC (32-34) % RDW (13.2-15.2) % Lymph % (Auto) (13.4-35.0) % Yell % (Auto) (0.0-7.3) % Lymph # (Auto) (1.2-5.4) K/mm3 Seg Neutrophils % (40.0-70.0) % PT (12.2-14.9) Sec. INR (0.87-1.13) Sodium (137-145) mmol/L Chloride (98-107) mmol/L Carbon Dioxide (22-30) mmol/L Creatinine (0.8-1.3) mg/dL Glucose (75-100) mg/dL POC Glucose 112 H (70-105) mg/dL Lactic Acid (0.7-2.0) mmol/L ALT (7-56) units/L Total Creatine Kinase (55-170) units/L Total Protein (6.3-8.2) g/dL Albumin (3.9-5) g/dL Salicylates (2.8-20.0) mg/dL Acetaminophen (10.0-30.0) ug/mL - Imaging and Cardiology Chest x-ray: report reviewed, image reviewed (b/l faint airspace opacities) Assessment and Plan Cultures: SARS CoV2 PCR: Pending A/P: 45-year-old male with hypertension, CHF, ESRD on HD, diabetes, left BKA admitted to the hospital with altered mental status: #Bilateral pneumonia v/s fluid overload: Follow-up COVID-19 PCR. Not hypoxic. #Hyperosmolar hyperglycemic state: Glycemic correction per primary team. #Acute encephalopathy: Likely secondary to above. #ESRD on HD: Renally dose antibiotics as needed. Recs: Follow-up COVID-19 PCR Continue empiric ceftriaxone, azithromycin for now Hyperglycemia correction per primary team Jesús Holliday MD, FACP [facility] O: [phone] F: [phone]
[2020-12-12 14:26] LABS: Calcium 8.7 mg/dL (8.4-10.2)
[2020-12-12 14:49] LABS: Hepatitis B Surface Antigen Nonreactive (Negative)
[2020-12-12 14:50] LABS: Hepatitis C Virus Antibody Non-Reactive (NonReactive)
--- NOTE | 2020-12-12 14:53 | Consultation ---
History of Present Illness Consult date: 12/12/20 Requesting physician: ENDY WHITMAN Reason for consult: other (Hyperosmolar Hyperglycemia state) History of present illness: PULMONARY/CCM CONSULT NOTE (Full dictation # [id number]) Please see dictated notes for full details Past History Past Medical History: diabetes, dialysis, ESRD, hypertension, hyperlipidemia Past Surgical History: Other (Left arm AV fistula placement) Social history: other (Unknown) Family history: other (Unknown) Medications and Allergies Allergies Allergy/AdvReac Type Severity Reaction Status Date / Time Unable to Assess Allergy Verified 12/11/20 22:54 Active Meds: Active Medications Acetaminophen (Acetaminophen 325 Mg/10.15 Ml Oral Liqd Unit Dose) 650 mg FEEDTUBE Q6H PRN PRN Reason: Pain MILD(1-3)/Fever >100.5/GILLIAM Dextrose (Dextrose 50% In Water (25gm) 50 Ml Syringe) 0 ml IV Q30MIN PRN; Protocol PRN Reason: Hypoglycemia Heparin Sodium (Porcine) (Heparin 5,000 Unit/1 Ml Vial) 5,000 unit SUB-Q Q8HR KARINA Last Admin: 12/12/20 13:45 Dose: 5,000 unit Documented by: Insulin Human Regular 100 (units/ Sodium Chloride) 100 mls @ 1 mls/hr IV TITR KARINA; Protocol Last Titration: 12/12/20 13:25 Dose: 0 units/hr, 0 mls/hr Documented by: Potassium Chloride/Dextrose/Sod Cl (D5w/0.45% Nacl/Kcl 20 Meq) 20 meq in 1,000 mls @ 125 mls/hr IV DIRECT KARINA Last Admin: 12/12/20 08:45 Dose: 125 mls/hr Documented by: Sodium Chloride (Nacl 0.9% 1000 Ml) 1,000 mls @ 150 mls/hr IV DIRECT KARINA Last Admin: 12/12/20 00:51 Dose: 150 mls/hr Documented by: Ceftriaxone Sodium (Rocephin/Ns 2 Gm/100 Ml) 2 gm in 100 mls @ 200 mls/hr IV Q24H KARINA; Protocol Azithromycin (Zithromax/Ns) 500 mg in 250 mls @ 250 mls/hr IV Q24H KARINA Sodium Chloride (Nacl 0.9%) 100 mls @ 999 mls/hr IV BREANA PRN PRN Reason: Hypotension Metoclopramide HCl (Metoclopramide 10 Mg/2 Ml Inj) 5 mg IV Q6H PRN PRN Reason: Nausea And Vomiting Last Admin: 12/12/20 01:21 Dose: 5 mg Documented by: Morphine Sulfate (Morphine 2 Mg/1 Ml Inj) 2 mg IV Q4H PRN PRN Reason: Pain, Moderate (4-6) Morphine Sulfate (Morphine 4 Mg/1 Ml Inj) 4 mg IV Q4H PRN PRN Reason: Pain , Severe (7-10) Sodium Chloride (Sodium Chloride 0.9% 10 Ml Flush Syringe) 10 ml IV BID KARINA Last Admin: 12/12/20 09:50 Dose: 10 ml Documented by: Sodium Chloride (Sodium Chloride 0.9% 10 Ml Flush Syringe) 10 ml IV PRN PRN PRN Reason: LINE FLUSH Physical Examination Vital signs: Vital Signs Temp Pulse Resp BP Pulse Ox 98.2 F 87 20 151/75 100 12/11/20 21:20 12/11/20 21:20 12/11/20 21:20 12/11/20 21:20 12/11/20 21:20 Results - Laboratory Findings CBC and BMP: 12/11/20 21:48 12/12/20 13:49 PT/INR, D-dimer PT 16.8 Sec. (12.2-14.9) H 12/11/20 21:48 INR 1.30 (0.87-1.13) H 12/11/20 21:48 Abnormal lab findings: Abnormal Labs 12/11/20 12/11/20 12/11/20 21:48 21:48 21:48 RBC 2.46 L Hgb 8.3 L Hct 27.2 L MCV 111 H MCH 34 H MCHC 30 L RDW 18.2 H Lymph % (Auto) 11.5 L [place] % (Auto) 8.9 H Lymph # (Auto) 0.8 L Seg Neutrophils % 78.6 H PT 16.8 H INR 1.30 H Sodium 125 L Chloride 87.0 L Carbon Dioxide 16 L Creatinine 6.4 H Glucose 888 H* POC Glucose Lactic Acid ALT 6 L Total Creatine Kinase 277 H Total Protein 8.8 H Albumin 3.3 L Salicylates Acetaminophen 12/11/20 12/11/20 12/11/20 21:48 21:48 21:48 RBC Hgb Hct MCV MCH MCHC RDW Lymph % (Auto) [place] % (Auto) Lymph # (Auto) Seg Neutrophils % PT INR Sodium Chloride Carbon Dioxide Creatinine Glucose POC Glucose Lactic Acid 5.70 H* ALT Total Creatine Kinase Total Protein Albumin Salicylates < 0.3 L Acetaminophen 5.0 L 12/12/20 12/12/20 12/12/20 00:06 01:24 01:38 RBC Hgb Hct MCV MCH MCHC RDW Lymph % (Auto) [place] % (Auto) Lymph # (Auto) Seg Neutrophils % PT INR Sodium Chloride Carbon Dioxide Creatinine Glucose POC Glucose > 600 H > 600 H Lactic Acid 5.70 H* ALT Total Creatine Kinase Total Protein Albumin Salicylates Acetaminophen 12/12/20 12/12/20 12/12/20 01:38 03:43 05:02 RBC Hgb Hct MCV MCH MCHC RDW Lymph % (Auto) [place] % (Auto) Lymph # (Auto) Seg Neutrophils % PT INR Sodium 129 L Chloride 91.3 L Carbon Dioxide 20 L Creatinine 6.7 H Glucose 723 H* POC Glucose 571 H 477 H Lactic Acid ALT Total Creatine Kinase Total Protein Albumin Salicylates Acetaminophen 12/12/20 12/12/20 12/12/20 05:55 05:55 05:58 RBC Hgb Hct MCV MCH MCHC RDW Lymph % (Auto) [place] % (Auto) Lymph # (Auto) Seg Neutrophils % PT INR Sodium 134 L Chloride 95.1 L Carbon Dioxide 21 L Creatinine 6.5 H Glucose 417 H POC Glucose 367 H Lactic Acid 5.20 H* ALT Total Creatine Kinase Total Protein Albumin Salicylates Acetaminophen 12/12/20 12/12/20 12/12/20 07:05 08:30 10:39 RBC Hgb Hct MCV MCH MCHC RDW Lymph % (Auto) [place] % (Auto) Lymph # (Auto) Seg Neutrophils % PT INR Sodium Chloride Carbon Dioxide Creatinine Glucose POC Glucose 339 H 252 H 181 H Lactic Acid ALT Total Creatine Kinase Total Protein Albumin Salicylates Acetaminophen 12/12/20 12/12/20 12/12/20 12:03 13:49 13:49 RBC Hgb Hct MCV MCH MCHC RDW Lymph % (Auto) [place] % (Auto) Lymph # (Auto) Seg Neutrophils % PT INR Sodium 135 L Chloride Carbon Dioxide Creatinine 7.0 H Glucose 65 L POC Glucose 112 H Lactic Acid 3.10 H* ALT Total Creatine Kinase Total Protein Albumin Salicylates Acetaminophen
--- NOTE | 2020-12-12 15:58 | Progress Note ---
Assessment and Plan Assessment and plan: 45-year-old -Mac[place] male with significant past medical history of hypertension, congestive heart failure, GERD, end-stage renal disease on dialysis, diabetes mellitus and left below-knee amputation was brought into the emergency room by EMS today for altered mental status and elevated blood sugar. Most of the history was gotten from the ER staff as patient is unable to give any history. Family members were also not available. Upon arrival in the emergency room, patient has been intermittently awake but not able to give any history. Work-up however reveals hemoglobin of 8.3 and hematocrit of 27.2, sodium of 125, anion gap of 27 and a blood glucose of about 888. He had a lactic acidosis of 5.7 CT scan of the head shows no acute intracranial abnormality. Chest x-ray shows bilateral pneumonia. COVID negative. Nephrology and ID consulted [facility] CHF ESRD ON HD DM L BKA NEURO-AMS PRN pain medications head CT on admit cspine and pelvic xray - nap on admit frequent neuro exams CV- tachycardia; hypertension; hx CHF SR-ST VS monitoring per ICU routine MAP goal > 65 RESP- pneumonia AM xray chest ordered pulmonary hygiene GI-nap NPO add bowel reg when appropriate nutrition consult - ESRD on HD strict I/O trend electrolytes renal following ESRD on HD bladder scan QS AM labs ordered HEME- a/c macrocytic anemia trend CBC no bleeding on exam epo SQH VTE ID- leukocytosis; lactic acidosis; pneumonia COVID NEG ID consulted trend temp and WBC curve follow culture data azithro/ceftriaxone ENDO hx DM; HHNK insulin gtt for blood glucose management avoid hypoglycemia volume resuscitation as needed; add dextrose source per protocol The high probability of a clinically significant, sudden or life threatening deterioration of the [30] system(s) required my full and direct attention, intervention and personal management. The aggregate critical care time was [] minutes. This time is in addition to time spent performing reported procedures but includes the following: [X] Data Review and interpretation [X] Patient assessment and monitoring of vital signs [X] Documentation [X] Medication orders and management Disposition Plan: ER hold- waiting for ICU bed Total Time Spent with Patient (Minutes): 30 History Interval history: 45-year-old -Macanese male with significant past medical history of hypertension, congestive heart failure, GERD, end-stage renal disease on dialysis, diabetes mellitus and left below-knee amputation was brought into the emergency room by EMS today for altered mental status and elevated blood sugar. Most of the history was gotten from the ER staff as patient is unable to give any history. Family members were also not available. Hospitalist Physical - Constitutional Vitals: Temp Pulse Resp BP Pulse Ox 98.1 F 81 22 154/100 100 12/12/20 14:19 12/12/20 15:22 12/12/20 15:22 12/12/20 15:22 12/12/20 15:22 General appearance: Present: no acute distress, obese - EENT Eyes: Present: PERRL ENT: clear oral mucosa - Neck Neck: Present: supple - Respiratory Respiratory effort: normal - Cardiovascular Rhythm: regular Heart Sounds: Present: S1 & S2 - Abdominal General gastrointestinal: soft - Integumentary Integumentary: Present: clear, warm, dry - Allied Health Allied health notes reviewed: nursing Results - Labs CBC & Chem 7: 12/11/20 21:48 12/12/20 13:49 Labs: Laboratory Last Values WBC 6.7 K/mm3 (4.5-11.0) 12/11/20 21:48 RBC 2.46 M/mm3 (3.65-5.03) L 12/11/20 21:48 Hgb 8.3 gm/dl (11.8-15.2) L 12/11/20 21:48 Hct 27.2 % (35.5-45.6) L 12/11/20 21:48 MCV 111 fl (84-94) H 12/11/20 21:48 MCH 34 pg (28-32) H 12/11/20 21:48 MCHC 30 % (32-34) L 12/11/20 21:48 RDW 18.2 % (13.2-15.2) H 12/11/20 21:48 Plt Count 154 K/mm3 (140-440) 12/11/20 21:48 Lymph % (Auto) 11.5 % (13.4-35.0) L 12/11/20 21:48 [place] % (Auto) 8.9 % (0.0-7.3) H 12/11/20 21:48 Eos % (Auto) 0.2 % (0.0-4.3) 12/11/20 21:48 Baso % (Auto) 0.8 % (0.0-1.8) 12/11/20 21:48 Lymph # (Auto) 0.8 K/mm3 (1.2-5.4) L 12/11/20 21:48 [place] # (Auto) 0.6 K/mm3 (0.0-0.8) 12/11/20 21:48 Eos # (Auto) 0.0 K/mm3 (0.0-0.4) 12/11/20 21:48 Baso # (Auto) 0.1 K/mm3 (0.0-0.1) 12/11/20 21:48 Seg Neutrophils % 78.6 % (40.0-70.0) H 12/11/20 21:48 Seg Neutrophils # 5.3 K/mm3 (1.8-7.7) 12/11/20 21:48 PT 16.8 Sec. (12.2-14.9) H 12/11/20 21:48 INR 1.30 (0.87-1.13) H 12/11/20 21:48 APTT 29.7 Sec. (24.2-36.6) 12/11/20 21:48 VBG pH 7.329 (7.320-7.420) 12/11/20 21:48 Sodium 135 mmol/L (137-145) L 12/12/20 13:49 Potassium 4.4 mmol/L (3.6-5.0) 12/12/20 13:49 Chloride 98.6 mmol/L (98-107) 12/12/20 13:49 Carbon Dioxide 22 mmol/L (22-30) 12/12/20 13:49 Anion Gap 19 mmol/L 12/12/20 13:49 BUN 20 mg/dL (9-20) 12/12/20 13:49 Creatinine 7.0 mg/dL (0.8-1.3) H 12/12/20 13:49 Estimated GFR 10 ml/min 12/12/20 13:49 BUN/Creatinine Ratio 3 % 12/12/20 13:49 Glucose 65 mg/dL (75-100) L 12/12/20 13:49 POC Glucose 82 mg/dL (70-105) 12/12/20 13:57 Lactic Acid 3.10 mmol/L (0.7-2.0) H* 12/12/20 13:49 Calcium 8.7 mg/dL (8.4-10.2) 12/12/20 13:49 Phosphorus 3.30 mg/dL (2.5-4.5) 12/12/20 01:38 Magnesium 1.80 mg/dL (1.7-2.3) 12/12/20 01:38 Total Bilirubin 0.80 mg/dL (0.1-1.2) 12/11/20 21:48 AST 20 units/L (5-40) 12/11/20 21:48 ALT 6 units/L (7-56) L 12/11/20 21:48 Alkaline Phosphatase 101 units/L (35-129) 12/11/20 21:48 Ammonia 35.0 umol/L (25-60) 12/11/20 21:48 Total Creatine Kinase 277 units/L (55-170) H 12/11/20 21:48 Total Protein 8.8 g/dL (6.3-8.2) H 12/11/20 21:48 Albumin 3.3 g/dL (3.9-5) L 12/11/20 21:48 Albumin/Globulin Ratio 0.6 % 12/11/20 21:48 TSH 2.520 mlU/mL (0.270-4.200) 12/11/20 21:48 Salicylates < 0.3 mg/dL (2.8-20.0) L 12/11/20 21:48 Acetaminophen 5.0 ug/mL (10.0-30.0) L 12/11/20 21:48 Plasma/Serum Alcohol < 0.01 % (0-0.07) 12/11/20 21:48 Coronavirus (PCR) Negative (Negative) 12/11/20 08:50 Hepatitis A IgM Ab Non-reactive (NonReactive) 12/12/20 13:49 Hep Bs Antigen Nonreactive (Negative) 12/12/20 13:49 Hep B Core IgM Ab Non-reactive (NonReactive) 12/12/20 13:49 Hepatitis C Antibody Non-reactive (NonReactive) 12/12/20 13:49 Microbiology: Microbiology 12/11/20 21:48 Peripheral/Venous Blood Culture - Preliminary Culture in Progress 12/11/20 21:54 Peripheral/Venous Blood Culture - Preliminary Culture in Progress Active Medications - Current Medications Current Medications: Generic Name Dose Route Start Last Admin Trade Name Freq PRN Reason Stop Dose Admin Acetaminophen 650 mg 12/11/20 23:01 Acetaminophen 325 Mg/10.15 Ml Oral Liqd Unit Dose FEEDTUBE Q6H PRN Pain MILD(1-3)/Fever >100.5/GILLIAM Dextrose 0 ml 12/11/20 22:34 Dextrose 50% In Water (25gm) 50 Ml Syringe IV Q30MIN PRN Hypoglycemia Protocol Heparin Sodium (Porcine) 5,000 unit 12/12/20 06:00 12/12/20 13:45 Heparin 5,000 Unit/1 Ml Vial SUB-Q 5,000 unit Q8HR KARINA Administration Insulin Human Regular 100 100 mls @ 1 mls/hr 12/11/20 23:00 12/12/20 13:25 units/ Sodium Chloride IV 0 units/hr TITR KARINA 0 mls/hr Titration Protocol 1 UNITS/HR Potassium Chloride/Dextrose/Sod Cl 20 meq in 1,000 mls @ 125 mls/hr 12/11/20 23:00 12/12/20 08:45 D5w/0.45% Nacl/Kcl 20 Meq IV 125 mls/hr DIRECT KARINA Administration Sodium Chloride 1,000 mls @ 150 mls/hr 12/11/20 23:15 12/12/20 00:51 Nacl 0.9% 1000 Ml IV 150 mls/hr DIRECT KARINA Administration Ceftriaxone Sodium 2 gm in 100 mls @ 200 mls/hr 12/12/20 22:00 Rocephin/Ns 2 Gm/100 Ml IV Q24H KARINA Protocol Azithromycin 500 mg in 250 mls @ 250 mls/hr 12/12/20 22:00 Zithromax/Ns IV Q24H KARINA Sodium Chloride 100 mls @ 999 mls/hr 12/12/20 08:17 Nacl 0.9% IV BREANA PRN Hypotension Metoclopramide HCl 5 mg 12/12/20 01:12 12/12/20 01:21 Metoclopramide 10 Mg/2 Ml Inj IV 5 mg Q6H PRN Administration Nausea And Vomiting Morphine Sulfate 2 mg 12/11/20 23:01 Morphine 2 Mg/1 Ml Inj IV Q4H PRN Pain, Moderate (4-6) Morphine Sulfate 4 mg 12/11/20 23:01 Morphine 4 Mg/1 Ml Inj IV Q4H PRN Pain , Severe (7-10) Sodium Chloride 10 ml 12/12/20 10:00 12/12/20 09:50 Sodium Chloride 0.9% 10 Ml Flush Syringe IV 10 ml BID KARINA Administration Sodium Chloride 10 ml 12/11/20 23:01 Sodium Chloride 0.9% 10 Ml Flush Syringe IV PRN PRN LINE FLUSH Nutrition/Malnutrition Assess - Attestation Statement I have reviewed and agreed w/ Malnutrition eval & tx plan: Yes
--- NOTE | 2020-12-12 16:52 | Consultation ---
<ENDY ORELLANA - Last Filed: 12/12/20 16:48> History of Present Illness Consult date: 12/12/20 Requesting physician: FLORECITA ACKERMAN Consult reason: arrhythmia, tachycardia History of present illness: Patient is 45 y/o male with a PMHX of HTN, ESRD, DM, and below the knee amputation who was brought to the ED for altered mental status and hyperglycemia. The history is taken from the chart because at the time of the interview patient is still altered. Upon arrival to the ED patient had BG 888 and lactic acid of 5.7. The patient is previously unknown to our group. Cardiology has been consulted because the patient has became tachycardic into 130s for about 30min and then returned to a heart rate of around 80s. Upon assessing the patient the was sinus 80s and receiving dialysis. Past History Past Medical History: diabetes, dialysis, ESRD, hypertension, hyperlipidemia Past Surgical History: Other (Left arm AV fistula placement) Social history: other (Unknown) Family history: other (Unknown) Medications and Allergies Allergies Allergy/AdvReac Type Severity Reaction Status Date / Time Unable to Assess Allergy Verified 12/11/20 22:54 Active Meds: Active Medications Acetaminophen (Acetaminophen 325 Mg/10.15 Ml Oral Liqd Unit Dose) 650 mg FEEDTUBE Q6H PRN PRN Reason: Pain MILD(1-3)/Fever >100.5/GILLIAM Dextrose (Dextrose 50% In Water (25gm) 50 Ml Syringe) 0 ml IV Q30MIN PRN; Protocol PRN Reason: Hypoglycemia Heparin Sodium (Porcine) (Heparin 5,000 Unit/1 Ml Vial) 5,000 unit SUB-Q Q8HR KARINA Last Admin: 12/12/20 13:45 Dose: 5,000 unit Documented by: Insulin Human Regular 100 (units/ Sodium Chloride) 100 mls @ 1 mls/hr IV TITR KARINA; Protocol Last Titration: 12/12/20 13:25 Dose: 0 units/hr, 0 mls/hr Documented by: Potassium Chloride/Dextrose/Sod Cl (D5w/0.45% Nacl/Kcl 20 Meq) 20 meq in 1,000 mls @ 125 mls/hr IV DIRECT KARINA Last Admin: 12/12/20 08:45 Dose: 125 mls/hr Documented by: Sodium Chloride (Nacl 0.9% 1000 Ml) 1,000 mls @ 150 mls/hr IV DIRECT KARINA Last Admin: 12/12/20 00:51 Dose: 150 mls/hr Documented by: Ceftriaxone Sodium (Rocephin/Ns 2 Gm/100 Ml) 2 gm in 100 mls @ 200 mls/hr IV Q24H KARINA; Protocol Azithromycin (Zithromax/Ns) 500 mg in 250 mls @ 250 mls/hr IV Q24H KARINA Sodium Chloride (Nacl 0.9%) 100 mls @ 999 mls/hr IV BREANA PRN PRN Reason: Hypotension Metoclopramide HCl (Metoclopramide 10 Mg/2 Ml Inj) 5 mg IV Q6H PRN PRN Reason: Nausea And Vomiting Last Admin: 12/12/20 01:21 Dose: 5 mg Documented by: Morphine Sulfate (Morphine 4 Mg/1 Ml Inj) 4 mg IV Q4H PRN PRN Reason: Pain , Severe (7-10) Sodium Chloride (Sodium Chloride 0.9% 10 Ml Flush Syringe) 10 ml IV BID KARINA Last Admin: 12/12/20 09:50 Dose: 10 ml Documented by: Sodium Chloride (Sodium Chloride 0.9% 10 Ml Flush Syringe) 10 ml IV PRN PRN PRN Reason: LINE FLUSH Review of Systems ROS unobtainable: due to mental status Physical Examination Last Vital Signs Temp 98.1 F 12/12/20 14:19 Pulse 83 12/12/20 16:15 Resp 20 12/12/20 16:15 BP 145/87 12/12/20 16:15 Pulse Ox 100 12/12/20 16:15 General appearance: other (lethargic/AMS) Neck: Positive: trachea midline Cardiac: Positive: Reg Rate and Rhythm Lungs: Positive: Decreased Breath Sounds, Rhonchi Neuro: Positive: Other (unable to assess due to mental status) Abdomen: Positive: Soft, Active Bowel Sounds Extremities: Present: upper extr. pulses, lower extr. pulses, edema, Cool Results 12/11/20 21:48 12/12/20 13:49 Cardiac Enzymes 12/11/20 Range/Units 21:48 AST 20 (5-40) units/L Coagulation 12/11/20 Range/Units 21:48 PT 16.8 H (12.2-14.9) Sec. INR 1.30 H (0.87-1.13) APTT 29.7 (24.2-36.6) Sec. CBC 12/11/20 Range/Units 21:48 WBC 6.7 (4.5-11.0) K/mm3 RBC 2.46 L (3.65-5.03) M/mm3 Hgb 8.3 L (11.8-15.2) gm/dl Hct 27.2 L (35.5-45.6) % Plt Count 154 (140-440) K/mm3 Lymph # (Auto) 0.8 L (1.2-5.4) K/mm3 Story # (Auto) 0.6 (0.0-0.8) K/mm3 Eos # (Auto) 0.0 (0.0-0.4) K/mm3 Baso # (Auto) 0.1 (0.0-0.1) K/mm3 Comprehensive Metabolic Panel 12/11/20 12/12/20 12/12/20 Range/Units 21:48 01:38 05:55 Sodium 125 L 129 L 134 L (137-145) mmol/L Potassium 4.9 4.1 3.7 (3.6-5.0) mmol/L Chloride 87.0 L 91.3 L 95.1 L (98-107) mmol/L Carbon Dioxide 16 L 20 L 21 L (22-30) mmol/L BUN 19 20 20 (9-20) mg/dL Creatinine 6.4 H 6.7 H 6.5 H (0.8-1.3) mg/dL Glucose 888 H* 723 H* 417 H (75-100) mg/dL Calcium 8.7 8.4 9.0 (8.4-10.2) mg/dL AST 20 (5-40) units/L ALT 6 L (7-56) units/L Alkaline Phosphatase 101 (35-129) units/L Total Protein 8.8 H (6.3-8.2) g/dL Albumin 3.3 L (3.9-5) g/dL 12/12/20 Range/Units 13:49 Sodium 135 L (137-145) mmol/L Potassium 4.4 (3.6-5.0) mmol/L Chloride 98.6 (98-107) mmol/L Carbon Dioxide 22 (22-30) mmol/L BUN 20 (9-20) mg/dL Creatinine 7.0 H (0.8-1.3) mg/dL Glucose 65 L (75-100) mg/dL Calcium 8.7 (8.4-10.2) mg/dL AST (5-40) units/L ALT (7-56) units/L Alkaline Phosphatase (35-129) units/L Total Protein (6.3-8.2) g/dL Albumin (3.9-5) g/dL EKG interpretations - Telemetry EKG Rhythm: Sinus Rhythm - EKG Sinus rhythms and dysrhythmias: sinus tachycardia Assessment and Plan HTN Tachycardia * Patient EKG shows tachy cardia 131 with no acute ischemic changes. Currently sinus 80s on monitor. Trend Wilson * Echo 12/2017- EF 60 to 65%, right ventricular systolic function is normal, right and left atrium are normal in size no pericardial effusion seen * Echo pending ESRD * Patient receiving HD * Volume management per nephrology Hyperosmolar hyperglycemic state AMS * Patient BG 888 upon arrival to ED * Management per primary team PNA * CXR shows PNA * COVID-19 pcr negative * ID consulted Patient seen in conjunction with Dr. Alcazar who agrees with this plan. Will continue to follow - Patient Problems (1) Acute encephalopathy Current Visit: Yes Status: Acute (2) End stage renal disease Current Visit: Yes Status: Acute (3) Hyperosmolar hyperglycemic state (HHS) Current Visit: Yes Status: Acute (4) Metabolic acidosis Current Visit: Yes Status: Acute (5) Pneumonia Current Visit: Yes Status: Acute <CHARITY ALCAZAR R - Last Filed: 12/13/20 16:56> Medications and Allergies Active Meds: Active Medications Acetaminophen (Acetaminophen 325 Mg/10.15 Ml Oral Liqd Unit Dose) 650 mg FEEDT UBE Q6H PRN PRN Reason: Pain MILD(1-3)/Fever >100.5/GILLIAM Dextrose (Dextrose 50% In Water (25gm) 50 Ml Syringe) 50 ml IV Q30MIN PRN; Protocol PRN Reason: Hypoglycemia Docusate Sodium (Docusate Sodium 100 Mg Cap) 100 mg PO BID KARINA Heparin Sodium (Porcine) (Heparin 5,000 Unit/1 Ml Vial) 5,000 unit SUB-Q Q8HR KARINA Last Admin: 12/13/20 14:13 Dose: 5,000 unit Documented by: Ceftriaxone Sodium (Rocephin/Ns 2 Gm/100 Ml) 2 gm in 100 mls @ 200 mls/hr IV Q24H [facility]; Protocol Last Infusion: 12/13/20 01:01 Dose: Infused Documented by: Azithromycin (Zithromax/Ns) 500 mg in 250 mls @ 250 mls/hr IV Q24H KARINA Last Admin: 12/13/20 01:05 Dose: 250 mls/hr Documented by: Sodium Chloride (Nacl 0.9%) 100 mls @ 999 mls/hr IV BREANA PRN PRN Reason: Hypotension Insulin Glargine (Insulin Glargine 100 Units/Ml) 15 units SUB-Q QHS KARINA Insulin Human Regular (Insulin Regular, Human 100 Units/1 Ml) 0 units SUB-Q ACHS [facility]; Protocol Last Admin: 12/13/20 16:03 Dose: Not Given Documented by: Lorazepam (Lorazepam 2 Mg/Ml Vial) 2 mg IV Q6H PRN PRN Reason: Agitation Metoclopramide HCl (Metoclopramide 10 Mg/2 Ml Inj) 5 mg IV Q6H PRN PRN Reason: Nausea And Vomiting Last Admin: 12/13/20 06:07 Dose: 5 mg Documented by: Morphine Sulfate (Morphine 4 Mg/1 Ml Inj) 4 mg IV Q4H PRN PRN Reason: Pain , Severe (7-10) Last Admin: 12/13/20 11:23 Dose: 4 mg Documented by: Sodium Chloride (Sodium Chloride 0.9% 10 Ml Flush Syringe) 10 ml IV BID [facility] Last Admin: 12/13/20 10:39 Dose: 10 ml Documented by: Sodium Chloride (Sodium Chloride 0.9% 10 Ml Flush Syringe) 10 ml IV PRN PRN PRN Reason: LINE FLUSH Physical Examination Vital Signs Temp Pulse Resp BP Pulse Ox 98.2 F 87 20 151/75 100 12/11/20 21:20 12/11/20 21:20 12/11/20 21:20 12/11/20 21:20 12/11/20 21:20 Results 12/13/20 05:58 12/13/20 05:58 Cardiac Enzymes 12/13/20 Range/Units 05:58 AST 27 (5-40) units/L Lipids 12/12/20 Range/Units 13:49 Triglycerides 87 (2-149) mg/dL Cholesterol 65 (50-199) mg/dL HDL Cholesterol 28 L (40-59) mg/dL Cholesterol/HDL Ratio 2.32 % CBC 12/13/20 Range/Units 05:58 WBC 8.2 (4.5-11.0) K/mm3 RBC 2.47 L (3.65-5.03) M/mm3 Hgb 8.3 L (11.8-15.2) gm/dl Hct 25.2 L (35.5-45.6) % Plt Count 184 (140-440) K/mm3 Comprehensive Metabolic Panel 12/13/20 Range/Units 05:58 Sodium 138 (137-145) mmol/L Potassium 4.7 (3.6-5.0) mmol/L Chloride 94.9 L (98-107) mmol/L Carbon Dioxide 25 (22-30) mmol/L BUN 12 (9-20) mg/dL Creatinine 5.0 H (0.8-1.3) mg/dL Glucose 406 H (75-100) mg/dL Calcium 9.4 (8.4-10.2) mg/dL AST 27 (5-40) units/L ALT 6 L (7-56) units/L Alkaline Phosphatase 83 (35-129) units/L Total Protein 7.6 (6.3-8.2) g/dL Albumin 3.2 L (3.9-5) g/dL Assessment and Plan Patient was noted to have severe pulmonary hypertension,will recheck his right sided pressures once his present clinical status improves.
--- NOTE | 2020-12-12 17:44 | Electrocardiograph Report ---
[facility] Test Date: 2020-12-11 Test Time: 22:24:33 Pat Name: JAYE PADILLA Department: Room: [place] [address] Gender: M Provider Service Representative: : 1975 Requested By: ENDY WHITMAN Order Number: [id number] Reading MD: Josep Willett Measurements Intervals [place] Rate: 88 P: 66 TN: 175 QRS: -20 QRSD: 96 T: 95 QT: 411 QTc: 498 Interpretive Statements Sinus rhythm Nonspecific T abnormalities, lateral leads No previous ECG available for comparison Electronically Signed On 12-12-2020 17:44:32 EDT by Josep Willett
[2020-12-12] MEDS ORDERED: METOPROLOL TARTRATE 5 MG/5 ML INJ IV ONE (18:33)
[2020-12-12 18:57] LABS: Chol/HDL Ratio 2.32 %
[2020-12-12] MEDS ORDERED: LORazepam 2 MG/ML VIAL IV ONE (18:57)
[2020-12-13] MEDS: cefTRIAXone/NS 2 GM/100 ML 2 GM/100 ML BAG IV SCH ×2 (00:28→23:51)
[2020-12-13] MEDS: HEPARIN 5,000 UNIT/1 ML VIAL SUB-Q SCH ×4 (00:29→22:37)
[2020-12-13] MEDS: AZITHROMYCIN/NS 500 MG/250 ML 500 MG/250 ML BAG IV SCH ×2 (01:05→23:47)
--- NOTE | 2020-12-13 01:50 | Consultation ---
DATE OF CONSULTATION: 12/12/2020 PULMONARY CRITICAL CARE CONSULT NOTE CONSULTING PHYSICIAN: Dr. Marie. REASON FOR CONSULTATION: Hyperosmolar hyperglycemic nonketotic coma. CHIEF COMPLAINT AND HISTORY OF PRESENT ILLNESS: As follows: The patient is a 45-year-old male, past medical history as far as I can tell significant for a diagnosis of end-stage renal disease, on dialysis as well as diabetes. He was brought in by the [facility] for hyperglycemia. The patient was encephalopathic at the time of evaluation and definitely with altered mental status. He was found to be hyperglycemic. He did have an elevated anion gap. It is unclear if he was acidotic at the same time. He was started on IV insulin drip and ICU admission was requested. When I stopped by to see him today, he was getting dialyzed. He was still lethargic. It is the best way to describe it. I do not have any history of vomiting or overt aspiration. The patient's tobacco use/abuse history is unknown. The above is really as much of the history of presentation as I have. PAST MEDICAL HISTORY: Diabetes, end-stage renal disease and on dialysis, hypertension, hyperlipidemia, congestive heart failure, gastroesophageal reflux disease. PAST SURGICAL HISTORY: He has had a left [id number] amputation and he has a left upper extremity AV fistula. MEDICATIONS: He was on at the time I stopped by to see him were reviewed. Pertinent medications included the following: Tylenol 650 mg p.o. q.6 hours p.r.n. mild pain or fever, azithromycin 500 mg IV daily, Rocephin 2 grams IV daily, heparin 5000 units subcu q.8 hours. He had been on an IV insulin drip, I believe at 2 units per hour. Reglan 5 mg IV q.6 hours p.r.n. nausea and vomiting, morphine sulfate 4 mg IV q.4 hours p.r.n. severe pain. ALLERGIES: Unknown. DIET: Well-built gentleman, acute weight loss or gain history is unknown. FAMILY AND SOCIAL HISTORY: Apparently brought in from the community. Alcohol, tobacco or illicit drug use or abuse history is unknown. FAMILY HISTORY: Otherwise unknown. REVIEW OF SYSTEMS: Unobtainable secondary to the patient's medical and mental condition. Since he has been here, no gross hematochezia or melena, no gross hematuria, no hematemesis, no hemoptysis, no witnessed seizures have been reported. Review of systems otherwise unobtainable as in body of history above. PHYSICAL EXAMINATION: VITAL SIGNS: At presentation, he was afebrile, temperature 98.2 degrees Fahrenheit, pulse of 87, respiratory rate of 20, blood pressure 151/75, O2 sats were 100%, inspired oxygen concentration at that time was not recorded. When I stopped by to see him, his O2 sats were 99% on room air. GENERAL: He is a middle-aged, well-built male. Normocephalic, atraumatic. Resting in bed without significantly increased respiratory effort at rest. He is altered. HEAD, EYES, EARS, NOSE AND THROAT: Anicteric. No conjunctival erythema. Oropharynx was dry. NECK: No gross jugular venous distention, no thyromegaly. Grossly, there were no palpable lymph nodes in the supraclavicular or submandibular lymph node chains. LUNGS: Auscultation of both lung perez unremarkable. He did have good bilateral air movement. He did have some basilar rhonchi/rales. No wheezing. HEART: Heart sounds 1 and 2 are heard at the time of my evaluation, regular in rate and rhythm without overt rubs or murmurs. ABDOMEN: Soft, full, bowel sounds are positive, nontender, no palpable hepatosplenomegaly. EXTREMITIES: Without overt digital clubbing or cyanosis. He has a left [id number]-[id number] amputation. NEUROLOGICAL: Pupils equal, round, about 3 mm, reactive to light. Extraocular muscle movements cannot be assessed. He had some spontaneous movements to his extremities, but he was lethargic to near obtunded. He was protecting his airway very well. SKIN: Poor turgor, dry without overt cellulitis or rash. He has a left upper extremity AV fistula with a palpable thrill. PSYCHIATRIC: Mood and affect could not be assessed. LABORATORY DATA: From my review is as follows: Admission white cell count 6700, hemoglobin 8.3, hematocrit 27.2, platelet count 154. INR 1.37. Venous blood gas showed a pH of 7.33. Serum sodium was 125, potassium 4.9, chloride 87, bicarbonate 16. BUN 19, creatinine 6.4. Glucose 888. Lactic acid level was 5.7. Liver function tests essentially within normal limits. CPK was up at 277. TSH within normal limits. Aspirin, Tylenol, alcohol levels within normal limits. Coronavirus PCR was negative. Hepatitis C screen nonreactive. Two sets of blood cultures, no growth to date. He had a C-spine CT scan done as well as a CT of the head. CT of the head: No acute intracranial abnormality. C-spine: No cervical fracture. Chest x-ray shows gross cardiomegaly, bilateral pulmonary infiltrates, interstitial edema versus pneumonia. I cannot rule out small bilateral pleural effusions. ASSESSMENT: 1. Diabetic ketoacidosis/hyperosmolar nonketotic coma. 2. Acute toxic metabolic encephalopathy. 3. End-stage renal disease, on dialysis. 4. History of hypertension. 5. Congestive heart failure. 6. History of gastroesophageal reflux disease. PLAN: He is off the insulin drip at the time I stopped by to see him. His anion gap has closed. Blood sugar is actually low, really no acute indication for admission to the intensive care unit at this point. Hemodialysis should continue, volume should be pulled as tolerated. Some of his altered mental status might be azotemia. Neurology consultation is appropriate. A serum ammonia level will be ordered. Otherwise, he is appropriately on GI prophylaxis as well as DVT prophylaxis. Empiric community-acquired pneumonia therapy is appropriate. Flu and pneumonia vaccination will be addressed per protocol. Thank you very much for the consult. We will follow along and make further recommendations as picture progresses/becomes clearer. TID: [id number] RECEIPT: [id number] FRANCOISE/CHING
--- NOTE | 2020-12-13 02:15 | XRay Report ---
CHEST 1 VIEW 12/12/2020 11:45 PM INDICATION / CLINICAL INFORMATION: sob. COMPARISON: 12/11/2020 FINDINGS: SUPPORT DEVICES: None. HEART / MEDIASTINUM: Stable cardiomegaly LUNGS / PLEURA: Streaky bilateral parenchymal disease has slightly improved. No pneumothorax. ADDITIONAL FINDINGS: No significant additional findings. IMPRESSION: 1. Resolving bilateral pneumonia Signer Name: Moises Coelho MD Signed: 12/13/2020 2:11 AM Workstation Name: [id number]
[2020-12-13] MEDS: METOCLOPRAMIDE 10 MG/2 ML INJ IV PRN (06:07)
[2020-12-13 06:26] LABS: Hematocrit 25.2 % (35.5-45.6); Hemoglobin 8.3 gm/dl (11.8-15.2); Mean Corpuscular HGB Conc 33 % (32-34); Mean Corpuscular Volume 102 fl (84-94); Platelet Count 184 K/mm3 (140-440); Red Blood Count 2.47 M/mm3 (3.65-5.03); Red Cell Distribution Width 17.8 % (13.2-15.2)
[2020-12-13 06:46] LABS: Albumin 3.2 g/dL (3.9-5); Calcium 9.4 mg/dL (8.4-10.2)
[2020-12-13] MEDS: INSULIN LISPRO 100 UNIT/ML SUB-Q SCH ×2 (06:56→07:29)
[2020-12-13] MEDS: INSULIN REGULAR, HUMAN 100 UNITS/1 ML SUB-Q SCH ×2 (12:11→16:03)
--- NOTE | 2020-12-13 12:48 | Progress Note ---
Assessment and Plan Cultures: SARS CoV2 PCR: negative A/P: 45-year-old male with hypertension, CHF, ESRD on HD, diabetes, left BKA admitted to the hospital with altered mental status: #Bilateral pneumonia v/s fluid overload: negative COVID-19 PCR. Not hypoxic. #Hyperosmolar hyperglycemic state: Glycemic correction per primary team. #Acute encephalopathy: Likely secondary to above. #ESRD on HD: Renally dose antibiotics as needed. Recs: Chest x-ray showed improvement, plan to stop abx (ceftriaxone, azithromycin) tomorrow Hyperglycemia correction per primary team Jesús Holliday MD, FACP [facility] O: [phone] F: [phone] Subjective Date of service: 12/13/20 Interval history: No fever. On oxygen by nasal cannula. drowsy. COVID-19 PCR came back negative. Hepatitis panel: Negative. Objective - Exam Narrative Exam: Physical Exam: Constitutional: drowsy Head, Ears, Nose: Normocephalic, atraumatic. External ears, nose normal Eyes: Conjunctivae/corneas clear. No icterus. No ptosis. Neck: Supple, no meningeal signs Cardiovascular: S1, S2 + Respiratory: Good air entry, clear to auscultation bilaterally GI: Soft, non-tender; bowel sounds normal. No peritoneal signs Musculoskeletal: No pedal edema, no cyanosis. left BKA Skin: No rash or abscess Hem/Lymphatic: No palpable cervical or supraclavicular nodes. No lymphangitis Psych: drowsy Neurological: drowsy - Constitutional Vitals: Vital Signs Temp Pulse Resp BP Pulse Ox 97.9 F 84 16 141/74 100 12/12/20 20:00 12/13/20 12:38 12/13/20 12:38 12/13/20 12:38 12/13/20 12:38 Temperature -Last 24 Hours Temperature 97.9 F Temperature 98.1 F Temperature 98.1 F Temperature 98.1 F Temperature 98.4 F - Labs CBC & Chem 7: 12/13/20 05:58 12/13/20 05:58 Labs: Abnormal lab results 12/12/20 12/12/20 12/12/20 Range/Units 13:49 13:49 13:49 RBC (3.65-5.03) M/mm3 Hgb (11.8-15.2) gm/dl Hct (35.5-45.6) % MCV (84-94) fl MCH (28-32) pg RDW (13.2-15.2) % Sodium 135 L (137-145) mmol/L Chloride (98-107) mmol/L Creatinine 7.0 H (0.8-1.3) mg/dL Glucose 65 L (75-100) mg/dL POC Glucose (70-105) mg/dL Lactic Acid 3.10 H* (0.7-2.0) mmol/L ALT (7-56) units/L Troponin T 0.236 H* (0.00-0.029) ng/mL Albumin (3.9-5) g/dL LDL Cholesterol Direct 24 L (50-130) mg/dL HDL Cholesterol 28 L (40-59) mg/dL 12/13/20 12/13/20 12/13/20 Range/Units 00:21 05:58 05:58 RBC 2.47 L (3.65-5.03) M/mm3 Hgb 8.3 L (11.8-15.2) gm/dl Hct 25.2 L (35.5-45.6) % MCV 102 H (84-94) fl MCH 33 H (28-32) pg RDW 17.8 H (13.2-15.2) % Sodium (137-145) mmol/L Chloride (98-107) mmol/L Creatinine (0.8-1.3) mg/dL Glucose (75-100) mg/dL POC Glucose 297 H (70-105) mg/dL Lactic Acid (0.7-2.0) mmol/L ALT (7-56) units/L Troponin T 0.215 H* (0.00-0.029) ng/mL Albumin (3.9-5) g/dL LDL Cholesterol Direct (50-130) mg/dL HDL Cholesterol (40-59) mg/dL 12/13/20 12/13/20 12/13/20 Range/Units 05:58 05:58 12:08 RBC (3.65-5.03) M/mm3 Hgb (11.8-15.2) gm/dl Hct (35.5-45.6) % MCV (84-94) fl MCH (28-32) pg RDW (13.2-15.2) % Sodium (137-145) mmol/L Chloride 94.9 L (98-107) mmol/L Creatinine 5.0 H (0.8-1.3) mg/dL Glucose 406 H (75-100) mg/dL POC Glucose 184 H (70-105) mg/dL Lactic Acid 2.60 H* (0.7-2.0) mmol/L ALT 6 L (7-56) units/L Troponin T (0.00-0.029) ng/mL Albumin 3.2 L (3.9-5) g/dL LDL Cholesterol Direct (50-130) mg/dL HDL Cholesterol (40-59) mg/dL
--- NOTE | 2020-12-13 13:27 | Progress Note ---
Assessment and Plan Diabetic ketoacidosis/hyperosmolar nonketotic coma Acute toxic metabolic encephalopathy End-stage renal disease, on dialysis History of hypertension Congestive heart failure Gastroesophageal reflux disease - continue to wean supplemental oxygen to keep O2 sats > 90% - Bronchodilators (RYANNE) with pulmonary hygiene per RT - continue HD/UF per nephrology prescription for toxin and volume clearance - continue to avoid nephrotoxins, renally dose all medications - mobility protocols to prevent pressure ulcers - PT/OT as tolerated - Wound care per RN/WCT - continue accuchecks with glycemic control per SSI for target blood glucose < 180 mg/dL - home oxygen evaluation at discharge - GI & VTE prophylaxis - Flu & pneumovax per protocol - prn analgesia per pain score - continue other care per attending / other consultants ... re-evaluate in am & prn Subjective Date of service: 12/13/20 Principal diagnosis: DKA; Acute toxic metabolic encephalopathy; ESRD; HTN; CHF; GERD Interval history: Patient is seen today for: DKA; Acute toxic metabolic encephalopathy; ESRD; HTN; CHF; GERD Seen and examined at bedside; 24hour events reviewed; nursing and respiratory care staff consulted; no adverse overnight events reported to me; resting peacefully in bed; remains somnolent to lethargic at times but no respiratory distress Objective Vital Signs - 12hr 12/13/20 12/13/20 12/13/20 01:25 01:31 01:45 Pulse Rate 104 H 103 H 99 H Respiratory 20 14 16 Rate Blood Pressure 151/79 151/79 Blood Pressure 151/79 [Right] O2 Sat by Pulse 100 100 100 Oximetry 12/13/20 12/13/20 12/13/20 02:01 02:15 02:31 Pulse Rate 98 H 97 H 99 H Respiratory 17 14 19 Rate Blood Pressure 142/82 142/82 142/82 Blood Pressure [Right] O2 Sat by Pulse 100 89 Oximetry 12/13/20 12/13/20 12/13/20 02:45 03:01 03:15 Pulse Rate 93 H 92 H 97 H Respiratory 12 13 12 Rate Blood Pressure 142/82 157/78 157/78 Blood Pressure [Right] O2 Sat by Pulse 100 100 100 Oximetry 12/13/20 12/13/20 12/13/20 03:31 03:45 04:01 Pulse Rate 102 H 100 H 97 H Respiratory 10 L 12 16 Rate Blood Pressure 157/78 157/78 192/91 Blood Pressure [Right] O2 Sat by Pulse 100 100 100 Oximetry 12/13/20 12/13/20 12/13/20 04:15 04:31 04:45 Pulse Rate 93 H 92 H 93 H Respiratory 14 13 18 Rate Blood Pressure 192/91 192/91 192/91 Blood Pressure [Right] O2 Sat by Pulse 100 100 100 Oximetry 12/13/20 12/13/20 12/13/20 05:01 05:15 05:31 Pulse Rate 94 H 93 H 100 H Respiratory 17 15 16 Rate Blood Pressure 153/74 153/74 153/74 Blood Pressure [Right] O2 Sat by Pulse 99 100 94 Oximetry 12/13/20 12/13/20 12/13/20 05:45 06:01 06:15 Pulse Rate 93 H 92 H 106 H Respiratory 11 L 15 17 Rate Blood Pressure 153/74 170/79 170/79 Blood Pressure [Right] O2 Sat by Pulse 100 100 100 Oximetry 12/13/20 12/13/20 12/13/20 06:31 06:45 07:01 Pulse Rate 108 H 104 H 103 H Respiratory 15 13 14 Rate Blood Pressure 153/74 175/84 136/71 Blood Pressure [Right] O2 Sat by Pulse 100 100 91 Oximetry 12/13/20 12/13/20 12/13/20 07:15 11:05 12:38 Pulse Rate 98 H 102 H 84 Respiratory 14 16 16 Rate Blood Pressure 136/71 Blood Pressure 169/75 141/74 [Right] O2 Sat by Pulse 100 100 100 Oximetry Constitutional: no acute distress Eyes: non-icteric ENT: oropharynx moist Neck: supple, no lymphadenopathy Effort: normal Ascultation: Bilateral: clear Percussion: Bilateral: not dull Cardiovascular: regular rate and rhythm Gastrointestinal: normoactive bowel sounds, soft, non-tender, non-distended (protuberant) Extremities: pulses normal, edema (trace to 1+) Neurologic: pupils equal and round, unable to assess, other (somnolent) Psychiatric: other (unable to assess re: AMS ) CBC and BMP: 12/13/20 05:58 12/13/20 05:58 ABG, PT/INR, D-dimer: PT/INR, D-dimer PT 16.8 Sec. (12.2-14.9) H 12/11/20 21:48 INR 1.30 (0.87-1.13) H 12/11/20 21:48 Abnormal lab findings: Abnormal Labs 12/11/20 12/11/20 12/11/20 21:48 21:48 21:48 RBC 2.46 L Hgb 8.3 L Hct 27.2 L MCV 111 H MCH 34 H MCHC 30 L RDW 18.2 H Lymph % (Auto) 11.5 L [place] % (Auto) 8.9 H Lymph # (Auto) 0.8 L Seg Neutrophils % 78.6 H PT 16.8 H INR 1.30 H Sodium 125 L Chloride 87.0 L Carbon Dioxide 16 L Creatinine 6.4 H Glucose 888 H* POC Glucose Lactic Acid ALT 6 L Total Creatine Kinase 277 H Troponin T Total Protein 8.8 H Albumin 3.3 L LDL Cholesterol Direct HDL Cholesterol Salicylates Acetaminophen 12/11/20 12/11/20 12/11/20 21:48 21:48 21:48 RBC Hgb Hct MCV MCH MCHC RDW Lymph % (Auto) [place] % (Auto) Lymph # (Auto) Seg Neutrophils % PT INR Sodium Chloride Carbon Dioxide Creatinine Glucose POC Glucose Lactic Acid 5.70 H* ALT Total Creatine Kinase Troponin T Total Protein Albumin LDL Cholesterol Direct HDL Cholesterol Salicylates < 0.3 L Acetaminophen 5.0 L 12/12/20 12/12/20 12/12/20 00:06 01:24 01:38 RBC Hgb Hct MCV MCH MCHC RDW Lymph % (Auto) [place] % (Auto) Lymph # (Auto) Seg Neutrophils % PT INR Sodium Chloride Carbon Dioxide Creatinine Glucose POC Glucose > 600 H > 600 H Lactic Acid 5.70 H* ALT Total Creatine Kinase Troponin T Total Protein Albumin LDL Cholesterol Direct HDL Cholesterol Salicylates Acetaminophen 12/12/20 12/12/20 12/12/20 01:38 03:43 05:02 RBC Hgb Hct MCV MCH MCHC RDW Lymph % (Auto) [place] % (Auto) Lymph # (Auto) Seg Neutrophils % PT INR Sodium 129 L Chloride 91.3 L Carbon Dioxide 20 L Creatinine 6.7 H Glucose 723 H* POC Glucose 571 H 477 H Lactic Acid ALT Total Creatine Kinase Troponin T Total Protein Albumin LDL Cholesterol Direct HDL Cholesterol Salicylates Acetaminophen 12/12/20 12/12/20 12/12/20 05:55 05:55 05:58 RBC Hgb Hct MCV MCH MCHC RDW Lymph % (Auto) [place] % (Auto) Lymph # (Auto) Seg Neutrophils % PT INR Sodium 134 L Chloride 95.1 L Carbon Dioxide 21 L Creatinine 6.5 H Glucose 417 H POC Glucose 367 H Lactic Acid 5.20 H* ALT Total Creatine Kinase Troponin T Total Protein Albumin LDL Cholesterol Direct HDL Cholesterol Salicylates Acetaminophen 12/12/20 12/12/20 12/12/20 07:05 08:30 10:39 RBC Hgb Hct MCV MCH MCHC RDW Lymph % (Auto) [place] % (Auto) Lymph # (Auto) Seg Neutrophils % PT INR Sodium Chloride Carbon Dioxide Creatinine Glucose POC Glucose 339 H 252 H 181 H Lactic Acid ALT Total Creatine Kinase Troponin T Total Protein Albumin LDL Cholesterol Direct HDL Cholesterol Salicylates Acetaminophen 12/12/20 12/12/20 12/12/20 12:03 13:49 13:49 RBC Hgb Hct MCV MCH MCHC RDW Lymph % (Auto) [place] % (Auto) Lymph # (Auto) Seg Neutrophils % PT INR Sodium 135 L Chloride Carbon Dioxide Creatinine 7.0 H Glucose 65 L POC Glucose 112 H Lactic Acid 3.10 H* ALT Total Creatine Kinase Troponin T Total Protein Albumin LDL Cholesterol Direct HDL Cholesterol Salicylates Acetaminophen 12/12/20 12/13/20 12/13/20 13:49 00:21 05:58 RBC Hgb Hct MCV MCH MCHC RDW Lymph % (Auto) [place] % (Auto) Lymph # (Auto) Seg Neutrophils % PT INR Sodium Chloride Carbon Dioxide Creatinine Glucose POC Glucose 297 H Lactic Acid ALT Total Creatine Kinase Troponin T 0.236 H* 0.215 H* Total Protein Albumin LDL Cholesterol Direct 24 L HDL Cholesterol 28 L Salicylates Acetaminophen 12/13/20 12/13/20 12/13/20 05:58 05:58 05:58 RBC 2.47 L Hgb 8.3 L Hct 25.2 L MCV 102 H MCH 33 H MCHC RDW 17.8 H Lymph % (Auto) [place] % (Auto) Lymph # (Auto) Seg Neutrophils % PT INR Sodium Chloride 94.9 L Carbon Dioxide Creatinine 5.0 H Glucose 406 H POC Glucose Lactic Acid 2.60 H* ALT 6 L Total Creatine Kinase Troponin T Total Protein Albumin 3.2 L LDL Cholesterol Direct HDL Cholesterol Salicylates Acetaminophen 12/13/20 12:08 RBC Hgb Hct MCV MCH MCHC RDW Lymph % (Auto) [place] % (Auto) Lymph # (Auto) Seg Neutrophils % PT INR Sodium Chloride Carbon Dioxide Creatinine Glucose POC Glucose 184 H Lactic Acid ALT Total Creatine Kinase Troponin T Total Protein Albumin LDL Cholesterol Direct HDL Cholesterol Salicylates Acetaminophen Chest x-ray: image reviewed (cardiomegaly; right mid-lung platelike atelectasis) Allied health notes reviewed: nursing
--- NOTE | 2020-12-13 15:26 | Progress Note ---
Assessment and Plan Assessment and plan: 45-year-old -Green[place] male with significant past medical history of hypertension, congestive heart failure, GERD, end-stage renal disease on dialysis, diabetes mellitus and left below-knee amputation was brought into the emergency room by EMS today for altered mental status and elevated blood sugar. Most of the history was gotten from the ER staff as patient is unable to give any history. Family members were also not available. Upon arrival in the emergency room, patient has been intermittently awake but not able to give any history. Work-up however reveals hemoglobin of 8.3 and hematocrit of 27.2, sodium of 125, anion gap of 27 and a blood glucose of about 888. He had a lactic acidosis of 5.7 CT scan of the head shows no acute intracranial abnormality. Chest x-ray shows bilateral pneumonia. COVID negative. Nephrology and ID consulted PMH CHF ESRD ON HD DM L BKA NEURO-agitation; phantom pain PRN pain medications head CT on admit cspine and pelvic xray - nap on admit frequent neuro exams alert and oriented to person and situation; tells me he lives with his mom; periods of agitation PRN pain meds avoid oversedation CV- tachycardia; hypertension; hx CHF SR-ST MAP goal > 65 on no pressors/ IV drips at this time echo completed -report pending cards following RESP- pneumonia tolerating NC/Room air for sat > 92 pulmonary hygiene GI-nap diabetic diet bowel reg- colace nutrition consult - ESRD on HD strict I/O trend electrolytes renal following ESRD on HD HD per nephrology bladder scan QS AM labs ordered HEME- a/c macrocytic anemia trend CBC no bleeding on exam epo SQH VTE ID- leukocytosis; lactic acidosis; pneumonia COVID NEG ID following trend temp and WBC curve follow culture data azithro/ceftriaxone - thru tomorrow ENDO hx DM; HHNK off insulin for over 24 hours now Q4h blood glucose avoid hypoglycemia volume resuscitation as needed; add dextrose source per protocol STAFFED WITH DR Osman ACKERMAN; Pt off insulin gtt for over 24 hours. VSS. NAD. Down grade to med surg with remote telemetry 30 minutes non critical care time Disposition Plan: in ER waiting on med surg with remote tely bed Total Time Spent with Patient (Minutes): 30 non critical care History Interval history: 45-year-old -[place]ic male with significant past medical history of hypertension, congestive heart failure, GERD, end-stage renal disease on dialysis, diabetes mellitus and left below-knee amputation was brought into the emergency room by EMS today for altered mental status and elevated blood sugar. Most of the history was gotten from the ER staff as patient is unable to give any history. Family members were also not available. Pt remains in ER waiting on bed down graded to med surg with remote telemetry Hospitalist Physical - Constitutional Vitals: Temp Pulse Resp BP Pulse Ox 97.9 F 84 16 141/74 100 12/12/20 20:00 12/13/20 12:38 12/13/20 12:38 12/13/20 12:38 12/13/20 12:38 General appearance: Present: no acute distress, obese - EENT Eyes: Present: PERRL, EOM intact ENT: clear oral mucosa - Neck Neck: Present: supple - Respiratory Respiratory effort: normal - Cardiovascular Rhythm: regular - Extremities Extremity abnormal: edema, other (lbka) - Abdominal General gastrointestinal: soft - Integumentary Integumentary: Present: clear, warm - Psychiatric Psychiatric: agitated - Neurologic Neurologic: moves all extremities - Allied Health Allied health notes reviewed: nursing, RT, case management HEART Score - HEART Score Troponin: Troponin T 0.215 ng/mL (0.00-0.029) H* 12/13/20 05:58 Results - Labs CBC & Chem 7: 12/13/20 05:58 12/13/20 05:58 Labs: Laboratory Last Values WBC 8.2 K/mm3 (4.5-11.0) 12/13/20 05:58 RBC 2.47 M/mm3 (3.65-5.03) L 12/13/20 05:58 Hgb 8.3 gm/dl (11.8-15.2) L 12/13/20 05:58 Hct 25.2 % (35.5-45.6) L 12/13/20 05:58 MCV 102 fl (84-94) H 12/13/20 05:58 MCH 33 pg (28-32) H 12/13/20 05:58 MCHC 33 % (32-34) 12/13/20 05:58 RDW 17.8 % (13.2-15.2) H 12/13/20 05:58 Plt Count 184 K/mm3 (140-440) 12/13/20 05:58 Lymph % (Auto) 11.5 % (13.4-35.0) L 12/11/20 21:48 [place] % (Auto) 8.9 % (0.0-7.3) H 12/11/20 21:48 Eos % (Auto) 0.2 % (0.0-4.3) 12/11/20 21:48 Baso % (Auto) 0.8 % (0.0-1.8) 12/11/20 21:48 Lymph # (Auto) 0.8 K/mm3 (1.2-5.4) L 12/11/20 21:48 [place] # (Auto) 0.6 K/mm3 (0.0-0.8) 12/11/20 21:48 Eos # (Auto) 0.0 K/mm3 (0.0-0.4) 12/11/20 21:48 Baso # (Auto) 0.1 K/mm3 (0.0-0.1) 12/11/20 21:48 Seg Neutrophils % 78.6 % (40.0-70.0) H 12/11/20 21:48 Seg Neutrophils # 5.3 K/mm3 (1.8-7.7) 12/11/20 21:48 PT 16.8 Sec. (12.2-14.9) H 12/11/20 21:48 INR 1.30 (0.87-1.13) H 12/11/20 21:48 APTT 29.7 Sec. (24.2-36.6) 12/11/20 21:48 VBG pH 7.329 (7.320-7.420) 12/11/20 21:48 Sodium 138 mmol/L (137-145) 12/13/20 05:58 Potassium 4.7 mmol/L (3.6-5.0) 12/13/20 05:58 Chloride 94.9 mmol/L (98-107) L 12/13/20 05:58 Carbon Dioxide 25 mmol/L (22-30) 12/13/20 05:58 Anion Gap 23 mmol/L 12/13/20 05:58 BUN 12 mg/dL (9-20) 12/13/20 05:58 Creatinine 5.0 mg/dL (0.8-1.3) H 12/13/20 05:58 Estimated GFR 15 ml/min 12/13/20 05:58 BUN/Creatinine Ratio 2 % 12/13/20 05:58 Glucose 406 mg/dL (75-100) H 12/13/20 05:58 POC Glucose 184 mg/dL (70-105) H 12/13/20 12:08 Lactic Acid 2.60 mmol/L (0.7-2.0) H* 12/13/20 05:58 Calcium 9.4 mg/dL (8.4-10.2) 12/13/20 05:58 Phosphorus 3.80 mg/dL (2.5-4.5) 12/13/20 05:58 Magnesium 1.70 mg/dL (1.7-2.3) 12/13/20 05:58 Total Bilirubin 0.60 mg/dL (0.1-1.2) 12/13/20 05:58 AST 27 units/L (5-40) 12/13/20 05:58 ALT 6 units/L (7-56) L 12/13/20 05:58 Alkaline Phosphatase 83 units/L (35-129) 12/13/20 05:58 Ammonia 35.0 umol/L (25-60) 12/11/20 21:48 Total Creatine Kinase 277 units/L (55-170) H 12/11/20 21:48 Troponin T 0.215 ng/mL (0.00-0.029) H* 12/13/20 05:58 Total Protein 7.6 g/dL (6.3-8.2) 12/13/20 05:58 Albumin 3.2 g/dL (3.9-5) L 12/13/20 05:58 Albumin/Globulin Ratio 0.7 % 12/13/20 05:58 Triglycerides 87 mg/dL (2-149) 12/12/20 13:49 Cholesterol 65 mg/dL (50-199) 12/12/20 13:49 LDL Cholesterol Direct 24 mg/dL (50-130) L 12/12/20 13:49 HDL Cholesterol 28 mg/dL (40-59) L 12/12/20 13:49 Cholesterol/HDL Ratio 2.32 % 12/12/20 13:49 TSH 2.520 mlU/mL (0.270-4.200) 12/11/20 21:48 Salicylates < 0.3 mg/dL (2.8-20.0) L 12/11/20 21:48 Acetaminophen 5.0 ug/mL (10.0-30.0) L 12/11/20 21:48 Plasma/Serum Alcohol < 0.01 % (0-0.07) 12/11/20 21:48 Coronavirus (PCR) Negative (Negative) 12/11/20 08:50 Hepatitis A IgM Ab Non-reactive (NonReactive) 12/12/20 13:49 Hep Bs Antigen Nonreactive (Negative) 12/12/20 13:49 Hep B Core IgM Ab Non-reactive (NonReactive) 12/12/20 13:49 Hepatitis C Antibody Non-reactive (NonReactive) 12/12/20 13:49 Microbiology: Microbiology 12/11/20 21:48 Peripheral/Venous Blood Culture - Preliminary NO GROWTH AFTER 24 HOURS 12/11/20 21:54 Peripheral/Venous Blood Culture - Preliminary NO GROWTH AFTER 24 HOURS Active Medications - Current Medications Current Medications: Generic Name Dose Route Start Last Admin Trade Name Freq PRN Reason Stop Dose Admin Acetaminophen 650 mg 12/11/20 23:01 Acetaminophen 325 Mg/10.15 Ml Oral Liqd Unit Dose FEEDTUBE Q6H PRN Pain MILD(1-3)/Fever >100.5/GILLIAM Dextrose 50 ml 12/13/20 10:47 Dextrose 50% In Water (25gm) 50 Ml Syringe IV Q30MIN PRN Hypoglycemia Protocol Heparin Sodium (Porcine) 5,000 unit 12/12/20 06:00 12/13/20 14:13 Heparin 5,000 Unit/1 Ml Vial SUB-Q 5,000 unit Q8HR KARINA Administration Ceftriaxone Sodium 2 gm in 100 mls @ 200 mls/hr 12/12/20 22:00 12/13/20 01:01 Rocephin/Ns 2 Gm/100 Ml IV Infused Q24H KARINA Infusion Protocol Azithromycin 500 mg in 250 mls @ 250 mls/hr 12/12/20 22:00 12/13/20 01:05 Zithromax/Ns IV 250 mls/hr Q24H KARINA Administration Sodium Chloride 100 mls @ 999 mls/hr 12/12/20 08:17 Nacl 0.9% IV BREANA PRN Hypotension Insulin Glargine 15 units 08/18/21 22:00 Insulin Glargine 100 Units/Ml SUB-Q QHS KARINA Insulin Human Regular 0 units 12/13/20 11:30 12/13/20 12:11 Insulin Regular, Human 100 Units/1 Ml SUB-Q Not Given ACHS [facility] Protocol Metoclopramide HCl 5 mg 12/12/20 01:12 12/13/20 06:07 Metoclopramide 10 Mg/2 Ml Inj IV 5 mg Q6H PRN Administration Nausea And Vomiting Morphine Sulfate 4 mg 12/11/20 23:01 12/13/20 11:23 Morphine 4 Mg/1 Ml Inj IV 4 mg Q4H PRN Administration Pain , Severe (7-10) Sodium Chloride 10 ml 12/12/20 10:00 12/13/20 10:39 Sodium Chloride 0.9% 10 Ml Flush Syringe IV 10 ml BID KARINA Administration Sodium Chloride 10 ml 12/11/20 23:01 Sodium Chloride 0.9% 10 Ml Flush Syringe IV PRN PRN LINE FLUSH Nutrition/Malnutrition Assess - Attestation Statement I have reviewed and agreed w/ Malnutrition eval & tx plan: Yes
--- NOTE | 2020-12-13 15:43 | Progress Note ---
Assessment and Plan HTN Tachycardia NSTEMI type 2 * Patient EKG shows tachy cardia 131 with no acute ischemic changes. Currently sinus 80s on monitor. * Troponins elevated likely to KATYA on CKD. Troponins noted to be downtrending. continue to trend Wilson. May consider ischemic eval when patient more stable * Echo 12/2017- EF 60 to 65%, right ventricular systolic function is normal, right and left atrium are normal in size no pericardial effusion seen * Echo pending ESRD * Patient receiving HD * Volume management per nephrology Hyperosmolar hyperglycemic state AMS * Patient BG 888 upon arrival to ED * Management per primary team PNA * CXR shows PNA * COVID-19 pcr negative * ID consulted Patient seen in conjunction with Dr. Allen who agrees with this plan. Will continue to follow - Patient Problems (1) Acute encephalopathy Current Visit: Yes Status: Acute (2) End stage renal disease Current Visit: Yes Status: Acute (3) Hyperosmolar hyperglycemic state (HHS) Current Visit: Yes Status: Acute (4) Metabolic acidosis Current Visit: Yes Status: Acute (5) Pneumonia Current Visit: Yes Status: Acute Subjective Date of service: 12/13/20 Principal diagnosis: DKA; Acute toxic metabolic encephalopathy; ESRD; HTN; CHF; GERD Interval history: Patient agitated and still no able to provide history Sinus 80s on monitor Objective Last Vital Signs Temp 97.9 F 12/12/20 20:00 Pulse 84 12/13/20 12:38 Resp 16 12/13/20 12:38 BP 141/74 12/13/20 12:38 Pulse Ox 100 12/13/20 12:38 - Physical Examination General: Other (Agitated/AMS) Neck: Positive: trachea midline Cardiac: Positive: Reg Rate and Rhythm Lungs: Positive: Decreased Breath Sounds Neuro: Positive: Other (unable to assess due to mental status) Abdomen: Positive: Soft, Active Bowel Sounds Skin: Negative: Rash, Suspicious Lesions, Ulceration Extremities: Present: upper extr. pulses, lower extr. pulses, edema, Cool - Labs and Meds Cardiac Enzymes 12/13/20 Range/Units 05:58 AST 27 (5-40) units/L Lipids 12/12/20 Range/Units 13:49 Triglycerides 87 (2-149) mg/dL Cholesterol 65 (50-199) mg/dL HDL Cholesterol 28 L (40-59) mg/dL Cholesterol/HDL Ratio 2.32 % CBC 12/13/20 Range/Units 05:58 WBC 8.2 (4.5-11.0) K/mm3 RBC 2.47 L (3.65-5.03) M/mm3 Hgb 8.3 L (11.8-15.2) gm/dl Hct 25.2 L (35.5-45.6) % Plt Count 184 (140-440) K/mm3 Comprehensive Metabolic Panel 12/13/20 Range/Units 05:58 Sodium 138 (137-145) mmol/L Potassium 4.7 (3.6-5.0) mmol/L Chloride 94.9 L (98-107) mmol/L Carbon Dioxide 25 (22-30) mmol/L BUN 12 (9-20) mg/dL Creatinine 5.0 H (0.8-1.3) mg/dL Glucose 406 H (75-100) mg/dL Calcium 9.4 (8.4-10.2) mg/dL AST 27 (5-40) units/L ALT 6 L (7-56) units/L Alkaline Phosphatase 83 (35-129) units/L Total Protein 7.6 (6.3-8.2) g/dL Albumin 3.2 L (3.9-5) g/dL - Imaging and Cardiology EKG: report reviewed, image reviewed Echo: pending, report reviewed - Telemetry EKG Rhythm: Sinus Rhythm - EKG Sinus rhythms and dysrhythmias: sinus rhythm
[2020-12-13] MEDS: LORazepam 2 MG/ML VIAL IV PRN (17:26)
--- NOTE | 2020-12-13 18:57 | Progress Note ---
Assessment and Plan 45-year-old -[place] male with significant past medical history of hypertension, congestive heart failure, GERD, end-stage renal disease on dialysis, diabetes mellitus and left below-knee amputation was brought into the emergency room by EMS today for altered mental status and elevated blood sugar. Most of the history was gotten from the ER staff as patient is unable to give any history. Family members were also not available. Upon arrival in the emergency room, patient has been intermittently awake but not able to give any history. Work-up however reveals hemoglobin of 8.3 and hematocrit of 27.2, sodium of 125, anion gap of 27 and a blood glucose of about 888. He had a lactic acidosis of 5.7. CT scan of the head shows no acute intracranial abnormality. Chest x-ray shows bilateral pneumonia. Patient is being admitted with acute metabolic encephalopathy, hyperosmolar nonketotic coma and bilateral pneumonia. We will also rule out for COVID-19. Patient's Past Medical History includes diabetes, dialysis, ESRD, hypertension, hyperlipidemia. He has AV fistula in the left arm. Patient is in deep sleep at this time. Not responding to verbal stimuli. He is on 4L of O2, oxygen sat of 100%. Patient's blood pressure is 163/82, pulse 92. He is afebrile, with no leukocytosis. CXR 12/12/20 reported Resolving bilateral pneumonia. Current medications include Azithromycin, Ceftriaxone, and S/C Heparin. Patient was seen in the emergency room. I spent critical care time of 35 minutes reviewing the chart, examining the patient, reviewing the xrays, lab work, talking to the nursing staff and respiratory therapy, and working out the plan of treatment. - Patient Problems (1) Pneumonia Current Visit: Yes Status: Acute Plan to address problem: Patient is on Azithromycin and Ceftriaxone. (2) Acute encephalopathy Current Visit: Yes Status: Acute Plan to address problem: Management as per primary care and neurology. (3) End stage renal disease Current Visit: Yes Status: Acute Plan to address problem: Management as per nephrology. (4) Metabolic acidosis Current Visit: Yes Status: Acute Plan to address problem: Anion gap of 16. Likely from renal failure. Subjective Date of service: 12/13/20 Principal diagnosis: DKA; Acute toxic metabolic encephalopathy; ESRD; HTN; CHF; GERD Interval history: 45-year-old -[place] male with significant past medical history of hypertension, congestive heart failure, GERD, end-stage renal disease on dialysis, diabetes mellitus and left below-knee amputation was brought into the emergency room by EMS today for altered mental status and elevated blood sugar. Most of the history was gotten from the ER staff as patient is unable to give any history. Family members were also not available. Upon arrival in the emergency room, patient has been intermittently awake but no t able to give any history. Work-up however reveals hemoglobin of 8.3 and hematocrit of 27.2, sodium of 125, anion gap of 27 and a blood glucose of about 888. He had a lactic acidosis of 5.7. CT scan of the head shows no acute intracranial abnormality. Chest x-ray shows bilateral pneumonia. Patient is being admitted with acute metabolic encephalopathy, hyperosmolar nonketotic coma and bilateral pneumonia. We will also rule out for COVID-19. Patient's Past Medical History includes diabetes, dialysis, ESRD, hypertension, hyperlipidemia. He has AV fistula in the left arm. Patient is in deep sleep at this time. Not responding to verbal stimuli. He is on 4L of O2, oxygen sat of 100%. Patient's blood pressure is 163/82, pulse 92. He is afebrile, with no leukocytosis. CXR 12/12/20 reported Resolving bilateral pneumonia. Current medications include Azithromycin, Ceftriaxone, and S/C Heparin. Objective Vital Signs - 12hr 12/13/20 12/13/20 12/13/20 07:01 07:15 11:05 Pulse Rate 103 H 98 H 102 H Respiratory 14 14 16 Rate Blood Pressure 136/71 136/71 Blood Pressure 169/75 [Right] O2 Sat by Pulse 91 100 100 Oximetry 12/13/20 12/13/20 12:38 17:05 Pulse Rate 84 85 Respiratory 16 16 Rate Blood Pressure Blood Pressure 141/74 152/92 [Right] O2 Sat by Pulse 100 100 Oximetry Constitutional: no acute distress, asleep Eyes: non-icteric ENT: oropharynx moist Neck: supple, no lymphadenopathy Effort: normal Ascultation: Bilateral: diminished breath sounds Percussion: Bilateral: not dull Cardiovascular: regular rate and rhythm Gastrointestinal: normoactive bowel sounds, soft, non-tender, non-distended (protuberant) Integumentary: normal Extremities: pulses normal, edema (trace to 1+) Neurologic: pupils equal and round, unable to assess, other (unable to assess as patient is in deep sleep) Psychiatric: other (unable to assess as patient is in deep sleep) CBC and BMP: 12/14/20 08:08 12/14/20 08:08 ABG, PT/INR, D-dimer: PT/INR, D-dimer PT 16.8 Sec. (12.2-14.9) H 12/11/20 21:48 INR 1.30 (0.87-1.13) H 12/11/20 21:48 Abnormal lab findings: Abnormal Labs 12/11/20 12/11/20 12/11/20 21:48 21:48 21:48 RBC 2.46 L Hgb 8.3 L Hct 27.2 L MCV 111 H MCH 34 H MCHC 30 L RDW 18.2 H Lymph % (Auto) 11.[address] [place] % (Auto) 8.9 H Lymph # (Auto) 0.8 L Seg Neutrophils % 78.6 H PT 16.8 H INR 1.30 H Sodium 125 L Chloride 87.0 L Carbon Dioxide 16 L Creatinine 6.4 H Glucose 888 H* POC Glucose Lactic Acid ALT 6 L Total Creatine Kinase 277 H Troponin T Total Protein 8.8 H Albumin 3.3 L LDL Cholesterol Direct HDL Cholesterol Salicylates Acetaminophen 12/11/20 12/11/20 12/11/20 21:48 21:48 21:48 RBC Hgb Hct MCV MCH MCHC RDW Lymph % (Auto) [place] % (Auto) Lymph # (Auto) Seg Neutrophils % PT INR Sodium Chloride Carbon Dioxide Creatinine Glucose POC Glucose Lactic Acid 5.70 H* ALT Total Creatine Kinase Troponin T Total Protein Albumin LDL Cholesterol Direct HDL Cholesterol Salicylates < 0.3 L Acetaminophen 5.0 L 12/12/20 12/12/20 12/12/20 00:06 01:24 01:38 RBC Hgb Hct MCV MCH MCHC RDW Lymph % (Auto) [place] % (Auto) Lymph # (Auto) Seg Neutrophils % PT INR Sodium Chloride Carbon Dioxide Creatinine Glucose POC Glucose > 600 H > 600 H Lactic Acid 5.70 H* ALT Total Creatine Kinase Troponin T Total Protein Albumin LDL Cholesterol Direct HDL Cholesterol Salicylates Acetaminophen 12/12/20 12/12/20 12/12/20 01:38 03:43 05:02 RBC Hgb Hct MCV MCH MCHC RDW Lymph % (Auto) [place] % (Auto) Lymph # (Auto) Seg Neutrophils % PT INR Sodium 129 L Chloride 91.3 L Carbon Dioxide 20 L Creatinine 6.7 H Glucose 723 H* POC Glucose 571 H 477 H Lactic Acid ALT Total Creatine Kinase Troponin T Total Protein Albumin LDL Cholesterol Direct HDL Cholesterol Salicylates Acetaminophen 12/12/20 12/12/20 12/12/20 05:55 05:55 05:58 RBC Hgb Hct MCV MCH MCHC RDW Lymph % (Auto) [place] % (Auto) Lymph # (Auto) Seg Neutrophils % PT INR Sodium 134 L Chloride 95.1 L Carbon Dioxide 21 L Creatinine 6.5 H Glucose 417 H POC Glucose 367 H Lactic Acid 5.20 H* ALT Total Creatine Kinase Troponin T Total Protein Albumin LDL Cholesterol Direct HDL Cholesterol Salicylates Acetaminophen 12/12/20 12/12/20 12/12/20 07:05 08:30 10:39 RBC Hgb Hct MCV MCH MCHC RDW Lymph % (Auto) [place] % (Auto) Lymph # (Auto) Seg Neutrophils % PT INR Sodium Chloride Carbon Dioxide Creatinine Glucose POC Glucose 339 H 252 H 181 H Lactic Acid ALT Total Creatine Kinase Troponin T Total Protein Albumin LDL Cholesterol Direct HDL Cholesterol Salicylates Acetaminophen 12/12/20 12/12/20 12/12/20 12:03 13:49 13:49 RBC Hgb Hct MCV MCH MCHC RDW Lymph % (Auto) [place] % (Auto) Lymph # (Auto) Seg Neutrophils % PT INR Sodium 135 L Chloride Carbon Dioxide Creatinine 7.0 H Glucose 65 L POC Glucose 112 H Lactic Acid 3.10 H* ALT Total Creatine Kinase Troponin T Total Protein Albumin LDL Cholesterol Direct HDL Cholesterol Salicylates Acetaminophen 12/12/20 12/13/20 12/13/20 13:49 00:21 05:58 RBC Hgb Hct MCV MCH MCHC RDW Lymph % (Auto) [place] % (Auto) Lymph # (Auto) Seg Neutrophils % PT INR Sodium Chloride Carbon Dioxide Creatinine Glucose POC Glucose 297 H Lactic Acid ALT Total Creatine Kinase Troponin T 0.236 H* 0.215 H* Total Protein Albumin LDL Cholesterol Direct 24 L HDL Cholesterol 28 L Salicylates Acetaminophen 12/13/20 12/13/20 12/13/20 05:58 05:58 05:58 RBC 2.47 L Hgb 8.3 L Hct 25.2 L MCV 102 H MCH 33 H MCHC RDW 17.8 H Lymph % (Auto) [place] % (Auto) Lymph # (Auto) Seg Neutrophils % PT INR Sodium Chloride 94.9 L Carbon Dioxide Creatinine 5.0 H Glucose 406 H POC Glucose Lactic Acid 2.60 H* ALT 6 L Total Creatine Kinase Troponin T Total Protein Albumin 3.2 L LDL Cholesterol Direct HDL Cholesterol Salicylates Acetaminophen 12/13/20 12/13/20 12:08 16:02 RBC Hgb Hct MCV MCH MCHC RDW Lymph % (Auto) [place] % (Auto) Lymph # (Auto) Seg Neutrophils % PT INR Sodium Chloride Carbon Dioxide Creatinine Glucose POC Glucose 184 H 143 H Lactic Acid ALT Total Creatine Kinase Troponin T Total Protein Albumin LDL Cholesterol Direct HDL Cholesterol Salicylates Acetaminophen Chest x-ray: report reviewed, image reviewed Additional Studies: CHEST 1 VIEW 12/12/2020 11:45 PM INDICATION / CLINICAL INFORMATION: sob. COMPARISON: 12/11/2020 FINDINGS: SUPPORT DEVICES: None. HEART / MEDIASTINUM: Stable cardiomegaly LUNGS / PLEURA: Streaky bilateral parenchymal disease has slightly improved. No pneumothorax. ADDITIONAL FINDINGS: No significant additional findings. IMPRESSION: 1. Resolving bilateral pneumonia Allied health notes reviewed: nursing
--- NOTE | 2020-12-13 19:44 | Progress Note ---
Assessment and Plan - Patient Problems (1) Acute encephalopathy Current Visit: Yes Status: Acute Plan to address problem: toxic/metabolic encephalopathy. Suspect metabolic due to hyperglycemia and possible uremia. mental status is still not significantly better. consider Neurology input. (2) Hyponatremia Current Visit: Yes Status: Acute Plan to address problem: factitious hyponatremia secondary to severe hyperglycemia. sodium improved. Follow-up sodium with correction of hyperglycemia (3) Hyperosmolar hyperglycemic state (HHS) Current Visit: Yes Status: Acute Plan to address problem: blood sugar is quite labile. Continue blood sugar management by primary attending. (4) Anemia in chronic kidney disease, on chronic dialysis Current Visit: Yes Status: Acute Plan to address problem: give erythropoietin on dialysis and follow-up hemoglobin (5) Type 2 diabetes mellitus with diabetic chronic kidney disease Current Visit: Yes Status: Acute Plan to address problem: Blood sugar management by primary attending. (6) Hypertensive chronic kidney disease with stage 5 chronic kidney disease or end stage renal disease Current Visit: Yes Status: Acute Plan to address problem: Monitor blood pressure on current medications (7) End stage renal disease Current Visit: Yes Status: Acute Plan to address problem: hemodialysis on a Friday, and Friday schedule. Reevaluate (8) Metabolic acidosis Current Visit: Yes Status: Acute Plan to address problem: bicarbonate is back to normal postdialysis (9) Pneumonia Current Visit: Yes Status: Acute Plan to address problem: Covid 19 PCR negative. Continue antibiotics per primary attending. Repeat chest x-ray after dialysis tomorrow Subjective Date of service: 12/13/20 Principal diagnosis: DKA; Acute toxic metabolic encephalopathy; ESRD; HTN; CHF; GERD Interval history: patient seen lying in bed in the ER. He is confused. Nonsensical speech. Nurse at bedside Objective - Exam Narrative Exam: middle-aged -[place] male lying in bed in no acute distress HEENT: Normocephalic atraumatic, pupils equal round reactive to light Normal oropharynx, Neck: Supple, no venous distention, no goiter CVS: S1S2 RRR No murmur, No rub or gallop Lungs: Clear to auscultation, no use of accessory muscles of respiration Abdomen: Full, soft, nontender, no organomegaly no bruit, bowel sounds are present Extremities: mild edema right foot, left below knee amputation with stump clean and dry, hyperpigmentation both lower extremities, no cyanosis or clubbing, left upper extremity AV fistula with dressing intact, bruit and thrill intact Urinary: Deferred Musculo-skeletal: No joint deformities or swelling Neuro: Awake, confused conversation, no focal deficits - Vital Signs Vital signs: Vital Signs - 12hr 12/13/20 12/13/20 12/13/20 11:05 12:38 17:05 Pulse Rate 102 H 84 85 Respiratory 16 16 16 Rate Blood Pressure 169/75 141/74 152/92 [Right] O2 Sat by Pulse 100 100 100 Oximetry - Lab 12/13/20 05:58 12/13/20 05:58 Most recent lab results Calcium 9.4 mg/dL (8.4-10.2) 12/13/20 05:58 Phosphorus 3.80 mg/dL (2.5-4.5) 12/13/20 05:58 Magnesium 1.70 mg/dL (1.7-2.3) 12/13/20 05:58 Medications & Allergies - Medications Allergies/Adverse Reactions: Allergies Unable to Assess Allergy (Verified 12/11/20 22:54) UA Active Medications: Generic Name Dose Route Start Last Admin Trade Name Freq PRN Reason Stop Dose Admin Acetaminophen 650 mg 12/11/20 23:01 Acetaminophen 325 Mg/10.15 Ml Oral Liqd Unit Dose FEEDTUBE Q6H PRN Pain MILD(1-3)/Fever >100.5/GILLIAM Dextrose 50 ml 12/13/20 10:47 Dextrose 50% In Water (25gm) 50 Ml Syringe IV Q30MIN PRN Hypoglycemia Protocol Docusate Sodium 100 mg 12/13/20 22:00 Docusate Sodium 100 Mg Cap PO BID KARINA Heparin Sodium (Porcine) 5,000 unit 12/12/20 06:00 12/13/20 14:13 Heparin 5,000 Unit/1 Ml Vial SUB-Q 5,000 unit Q8HR KARINA Administration Ceftriaxone Sodium 2 gm in 100 mls @ 200 mls/hr 12/12/20 22:00 12/13/20 01:01 Rocephin/Ns 2 Gm/100 Ml IV Infused Q24H KARINA Infusion Protocol Azithromycin 500 mg in 250 mls @ 250 mls/hr 12/12/20 22:00 12/13/20 01:05 Zithromax/Ns IV 250 mls/hr Q24H KARINA Administration Sodium Chloride 100 mls @ 999 mls/hr 12/12/20 08:17 Nacl 0.9% IV BREANA PRN Hypotension Insulin Glargine 15 units 12/13/20 22:00 Insulin Glargine 100 Units/Ml SUB-Q QHS [facility] Insulin Human Regular 0 units 12/13/20 11:30 12/13/20 16:03 Insulin Regular, Human 100 Units/1 Ml SUB-Q Not Given ACHS [facility] Protocol Lorazepam 2 mg 12/13/20 16:33 12/13/20 17:26 Lorazepam 2 Mg/Ml Vial IV 2 mg Q6H PRN Administration Agitation Metoclopramide HCl 5 mg 12/12/20 01:12 12/13/20 06:07 Metoclopramide 10 Mg/2 Ml Inj IV 5 mg Q6H PRN Administration Nausea And Vomiting Morphine Sulfate 4 mg 12/11/20 23:01 12/13/20 11:23 Morphine 4 Mg/1 Ml Inj IV 4 mg Q4H PRN Administration Pain , Severe (7-10) Sodium Chloride 10 ml 12/12/20 10:00 12/13/20 10:39 Sodium Chloride 0.9% 10 Ml Flush Syringe IV 10 ml BID KARINA Administration Sodium Chloride 10 ml 12/11/20 23:01 Sodium Chloride 0.9% 10 Ml Flush Syringe IV PRN PRN LINE FLUSH
[2020-12-13] MEDS: DOCUSATE SODIUM 100 MG CAP PO SCH (22:37)
[2020-12-13] MEDS: INSULIN GLARGINE 100 UNITS/ML SUB-Q SCH (23:51)
[2020-12-14] MEDS: INSULIN REGULAR, HUMAN 100 UNITS/1 ML SUB-Q SCH ×5 (01:19→21:33)
[2020-12-14] MEDS: LORazepam 2 MG/ML VIAL IV PRN ×2 (05:14→15:07)
[2020-12-14] MEDS: HEPARIN 5,000 UNIT/1 ML VIAL SUB-Q SCH ×3 (05:39→21:32)
--- NOTE | 2020-12-14 08:25 | Progress Note ---
Assessment and Plan - Patient Problems (1) Acute encephalopathy Current Visit: Yes Status: Acute Plan to address problem: toxic/metabolic encephalopathy. Suspect metabolic due to hyperglycemia and possible uremia. mental status is still not significantly better. consider Neurology input. (2) Hyponatremia Current Visit: Yes Status: Acute Plan to address problem: factitious hyponatremia secondary to severe hyperglycemia. sodium improved. Follow-up sodium with correction of hyperglycemia (3) Hyperosmolar hyperglycemic state (HHS) Current Visit: Yes Status: Acute Plan to address problem: blood sugar is quite labile. Continue blood sugar management by primary attending. (4) Anemia in chronic kidney disease, on chronic dialysis Current Visit: Yes Status: Acute Plan to address problem: give erythropoietin on dialysis and follow-up hemoglobin (5) Type 2 diabetes mellitus with diabetic chronic kidney disease Current Visit: Yes Status: Chronic Plan to address problem: Blood sugar management by primary attending. (6) Hypertensive chronic kidney disease with stage 5 chronic kidney disease or end stage renal disease Current Visit: Yes Status: Acute Plan to address problem: Monitor blood pressure on current medications (7) End stage renal disease Current Visit: Yes Status: Acute Plan to address problem: hemodialysis on a Friday, and Friday schedule. Reevaluate (8) Metabolic acidosis Current Visit: Yes Status: Acute Plan to address problem: bicarbonate is back to normal postdialysis (9) Pneumonia Current Visit: Yes Status: Acute Plan to address problem: Covid 19 PCR negative. Continue antibiotics per primary attending. Repeat chest x-ray after dialysis tomorrow Subjective Date of service: 12/14/20 Principal diagnosis: DKA; Acute toxic metabolic encephalopathy; ESRD; HTN; CHF; GERD Interval history: Patient seen lying in bed on the medical floor. He is drowsy but awakens briefly. Moaning and groaning with nonsensical speech when awake. Objective - Exam Narrative Exam: middle-aged -Togolese male lying in bed in no acute distress HEENT: Normocephalic atraumatic, pupils equal round reactive to light Neck: Supple, no venous distention, no goiter CVS: S1S2 RRR No murmur, No rub or gallop Lungs: Clear to auscultation, no use of accessory muscles of respiration Abdomen: Full, soft, nontender, no organomegaly no bruit, bowel sounds are present Extremities: mild edema right foot, left below knee amputation with stump clean and dry, hyperpigmentation both lower extremities, no cyanosis or clubbing, left upper extremity AV fistula with dressing intact, bruit and thrill intact Genitourinary: Deferred Musculo-skeletal: No joint deformities or swelling Neuro: Drowsy but awakens briefly, Confused conversation, no focal deficits - Vital Signs Vital signs: Vital Signs - 12hr 12/13/20 12/13/20 12/13/20 20:31 20:38 20:45 Temperature Pulse Rate 94 H 95 H Respiratory 11 L 11 L Rate Blood Pressure 163/82 163/82 Blood Pressure [Right] O2 Sat by Pulse 100 98 100 Oximetry 12/13/20 12/13/20 12/13/20 21:01 21:15 22:00 Temperature Pulse Rate 92 H 88 88 Respiratory 11 L 10 L Rate Blood Pressure 164/94 164/94 Blood Pressure [Right] O2 Sat by Pulse 100 100 Oximetry 12/14/20 12/14/20 00:00 07:30 Temperature 98 F Pulse Rate 89 Respiratory 18 18 Rate Blood Pressure Blood Pressure 142/84 [Right] O2 Sat by Pulse 98 98 Oximetry - Lab 12/14/20 08:08 12/14/20 08:08 Most recent lab results Calcium 9.4 mg/dL (8.4-10.2) 12/13/20 05:58 Phosphorus 3.80 mg/dL (2.5-4.5) 12/13/20 05:58 Magnesium 1.70 mg/dL (1.7-2.3) 12/13/20 05:58 Medications & Allergies - Medications Allergies/Adverse Reactions: Allergies Unable to Assess Allergy (Verified 12/11/20 22:54) UA Active Medications: Generic Name Dose Route Start Last Admin Trade Name Freq PRN Reason Stop Dose Admin Acetaminophen 650 mg 12/11/20 23:01 Acetaminophen 325 Mg/10.15 Ml Oral Liqd Unit Dose FEEDTUBE Q6H PRN Pain MILD(1-3)/Fever >100.5/GILLIAM Dextrose 50 ml 12/13/20 10:47 Dextrose 50% In Water (25gm) 50 Ml Syringe IV Q30MIN PRN Hypoglycemia Protocol Docusate Sodium 100 mg 12/13/20 22:00 12/13/20 22:37 Docusate Sodium 100 Mg Cap PO 100 mg BID KARINA Administration Heparin Sodium (Porcine) 5,000 unit 12/12/20 06:00 12/14/20 05:39 Heparin 5,000 Unit/1 Ml Vial SUB-Q 5,000 unit Q8HR KARINA Administration Ceftriaxone Sodium 2 gm in 100 mls @ 200 mls/hr 12/12/20 22:00 12/14/20 00:26 Rocephin/Ns 2 Gm/100 Ml IV Infused Q24H KARINA Infusion Protocol Azithromycin 500 mg in 250 mls @ 250 mls/hr 12/12/20 22:00 12/14/20 02:23 Zithromax/Ns IV Infused Q24H KARINA Infusion Sodium Chloride 100 mls @ 999 mls/hr 12/12/20 08:17 Nacl 0.9% IV BREANA PRN Hypotension Insulin Glargine 15 units 12/13/20 22:00 12/13/20 23:51 Insulin Glargine 100 Units/Ml SUB-Q 15 units QHS KARINA Administration Insulin Human Regular 0 units 12/13/20 11:30 12/14/20 07:48 Insulin Regular, Human 100 Units/1 Ml SUB-Q Not Given ACHS [facility] Protocol Lorazepam 2 mg 12/13/20 16:33 12/14/20 05:14 Lorazepam 2 Mg/Ml Vial IV 2 mg Q6H PRN Administration Agitation Metoclopramide HCl 5 mg 12/12/20 01:12 12/13/20 06:07 Metoclopramide 10 Mg/2 Ml Inj IV 5 mg Q6H PRN Administration Nausea And Vomiting Morphine Sulfate 4 mg 12/11/20 23:01 12/13/20 11:23 Morphine 4 Mg/1 Ml Inj IV 4 mg Q4H PRN Administration Pain , Severe (7-10) Sodium Chloride 10 ml 12/12/20 10:00 12/13/20 23:53 Sodium Chloride 0.9% 10 Ml Flush Syringe IV 10 ml BID KARINA Administration Sodium Chloride 10 ml 12/11/20 23:01 Sodium Chloride 0.9% 10 Ml Flush Syringe IV PRN PRN LINE FLUSH
[2020-12-14 08:30] LABS: Hematocrit 25.6 % (35.5-45.6); Hemoglobin 8.4 gm/dl (11.8-15.2); Mean Corpuscular HGB Conc 33 % (32-34); Mean Corpuscular Volume 101 fl (84-94); Platelet Count 196 K/mm3 (140-440); Red Blood Count 2.52 M/mm3 (3.65-5.03); Red Cell Distribution Width 18.1 % (13.2-15.2)
--- NOTE | 2020-12-14 08:43 | Consultation ---
History of Present Illness Consult date: 12/14/20 Reason for Consult: change mentation ,Hx of ESRD on dialysis History of present illness: Altered mental Status History of present illness: 45-year-old -Citizen Of [place] male with significant past medical history of hype rtension, congestive heart failure, GERD, end-stage renal disease on dialysis, diabetes mellitus and left below-knee amputation was brought into the emergency room by EMS today for altered mental status and elevated blood sugar. Most of the history was gotten from the ER staff as patient is unable to give any history. Family members were also not available. Upon arrival in the emergency room, patient has been intermittently awake but not able to give any history. Work-up however reveals hemoglobin of 8.3 and hematocrit of 27.2, sodium of 125, anion gap of 27 and a blood glucose of about 888. He had a lactic acidosis of 5.7 CT scan of the head shows no acute intracranial abnormality. Chest x-ray shows bilateral pneumonia. +Patient is being admitted with acute metabolic encephalopathy + hyperosmolar nonketotic coma + bilateral pneumonia. + rule out for COVID-19. Past History Past Medical History: diabetes, dialysis, ESRD, hypertension, hyperlipidemia Past Surgical History: Other (Left arm AV fistula placement) Social history: other (Unknown) Family history: other (Unknown) Medications and Allergies Allergies Allergy/AdvReac Type Severity Reaction Status Date / Time Unable to Assess Allergy Verified 12/11/20 22:54 Active Meds: Active Medications Acetaminophen (Acetaminophen 325 Mg/10.15 Ml Oral Liqd Unit Dose) 650 mg FEEDTUBE Q6H PRN PRN Reason: Pain MILD(1-3)/Fever >100.5/GILLIAM Dextrose (Dextrose 50% In Water (25gm) 50 Ml Syringe) 0 ml IV Q30MIN PRN; Protocol PRN Reason: Hypoglycemia Insulin Human Regular 100 (units/ Sodium Chloride) 100 mls @ 1 mls/hr IV TITR KARINA; Protocol Potassium Chloride/Dextrose/Sod Cl (D5w/0.45% Nacl/Kcl 20 Meq) 20 meq in 1,000 mls @ 125 mls/hr IV DIRECT KARINA Sodium Chloride (Nacl 0.9% 500 Ml) 500 mls @ 999 mls/hr IV ONCE ONE Stop: 12/11/20 23:04 Ceftriaxone Sodium (Rocephin/Ns 1 Gm/50 Ml) 1 gm in 50 mls @ 100 mls/hr IV ONCE ONE; Protocol Stop: 12/11/20 23:03 Sodium Chloride (Nacl 0.9% 1000 Ml) 1,000 mls @ 150 mls/hr IV DIRECT KARINA Insulin Human Regular (Insulin Regular, Human 100 Units/1 Ml) 8 units IV ONCE ONE Stop: 12/11/20 22:35 Morphine Sulfate (Morphine 2 Mg/1 Ml Inj) 2 mg IV Q4H PRN PRN Reason: Pain, Moderate (4-6) Morphine Sulfate (Morphine 4 Mg/1 Ml Inj) 4 mg IV Q4H PRN PRN Reason: Pain , Severe (7-10) Ondansetron HCl (Ondansetron 4 Mg/2 Ml Inj) 4 mg IV ONCE ONE Stop: 12/11/20 21:38 Last Admin: 12/11/20 22:55 Dose: 4 mg Documented by: Sodium Chloride (Sodium Chloride 0.9% 10 Ml Flush Syringe) 10 ml IV BID [facility] Sodium Chloride (Sodium Chloride 0.9% 10 Ml Flush Syringe) 10 ml IV PRN PRN PRN Reason: LINE FLUSH Review of Systems ROS unobtainable: due to mental status Past History Past Medical History: diabetes, dialysis, ESRD, hypertension, hyperlipidemia Past Surgical History: Other (Left arm AV fistula placement, left below knee amputation) Social history: other (Unknown) Family history: other (Unknown) Medications and Allergies Allergies Allergy/AdvReac Type Severity Reaction Status Date / Time Unable to Assess Allergy Verified 12/11/20 22:54 Active Meds: Active Medications Acetaminophen (Acetaminophen 325 Mg/10.15 Ml Oral Liqd Unit Dose) 650 mg FEEDTUBE Q6H PRN PRN Reason: Pain MILD(1-3)/Fever >100.5/GILLIAM Dextrose (Dextrose 50% In Water (25gm) 50 Ml Syringe) 50 ml IV Q30MIN PRN; Protocol PRN Reason: Hypoglycemia Docusate Sodium (Docusate Sodium 100 Mg Cap) 100 mg PO BID [facility] Last Admin: 12/13/20 22:37 Dose: 100 mg Documented by: Heparin Sodium (Porcine) (Heparin 5,000 Unit/1 Ml Vial) 5,000 unit SUB-Q Q8HR [facility] Last Admin: 12/14/20 05:39 Dose: 5,000 unit Documented by: Ceftriaxone Sodium (Rocephin/Ns 2 Gm/100 Ml) 2 gm in 100 mls @ 200 mls/hr IV Q24H [facility]; Protocol Last Infusion: 12/14/20 00:26 Dose: Infused Documented by: Azithromycin (Zithromax/Ns) 500 mg in 250 mls @ 250 mls/hr IV Q24H KARINA Last Infusion: 12/14/20 02:23 Dose: Infused Documented by: Sodium Chloride (Nacl 0.9%) 100 mls @ 999 mls/hr IV BREANA PRN PRN Reason: Hypotension Insulin Glargine (Insulin Glargine 100 Units/Ml) 15 units SUB-Q QHS [facility] Last Admin: 12/13/20 23:51 Dose: 15 units Documented by: Insulin Human Regular (Insulin Regular, Human 100 Units/1 Ml) 0 units SUB-Q ACHS [facility]; Protocol Last Admin: 12/14/20 07:48 Dose: Not Given Documented by: Lorazepam (Lorazepam 2 Mg/Ml Vial) 2 mg IV Q6H PRN PRN Reason: Agitation Last Admin: 12/14/20 05:14 Dose: 2 mg Documented by: Metoclopramide HCl (Metoclopramide 10 Mg/2 Ml Inj) 5 mg IV Q6H PRN PRN Reason: Nausea And Vomiting Last Admin: 12/13/20 06:07 Dose: 5 mg Documented by: Morphine Sulfate (Morphine 4 Mg/1 Ml Inj) 4 mg IV Q4H PRN PRN Reason: Pain , Severe (7-10) Last Admin: 12/13/20 11:23 Dose: 4 mg Documented by: Sodium Chloride (Sodium Chloride 0.9% 10 Ml Flush Syringe) 10 ml IV BID [facility] Last Admin: 12/13/20 23:53 Dose: 10 ml Documented by: Sodium Chloride (Sodium Chloride 0.9% 10 Ml Flush Syringe) 10 ml IV PRN PRN PRN Reason: LINE FLUSH Physical Examination - Vital Signs Vital Signs: Vital Signs Temp Pulse Resp BP Pulse Ox 98.2 F 87 20 151/75 100 12/11/20 21:20 12/11/20 21:20 12/11/20 21:20 12/11/20 21:20 12/11/20 21:20 - Constitutional General appearance: comfortable - EENT EENT: Present: PERRL, mucous membranes moist - Respiratory Respiratory: Present: chest non-tender, lungs clear, rhonchi - Cardiovascular Cardiovascular: Present: regular rate, normal S1, normal S2 Extremities: Present: no peripheral edema bilatateraly, no clubbing, cyanosis - Gastrointestinal Gastrointestinal: Present: normoactive bowel sounds - Integumentary Integumentary: Present: normal - Neurologic Cranial nerve examination: PERRL, EOMI, intact (slight left facial droop ,) Speech examination: other (slurred and unclear) Sensorimotor examination: other (move all limbs he is with BKA left side , 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 is letahrgic he is in and out of sleep difficult to get any hx from ,) Results - Laboratory Findings CBC and BMP: 12/14/20 08:08 12/14/20 08:08 Abnormal Lab Findings: Abnormal Labs 12/11/20 12/11/20 12/11/20 21:48 21:48 21:48 RBC 2.46 L Hgb 8.3 L Hct 27.2 L MCV 111 H MCH 34 H MCHC 30 L RDW 18.2 H Lymph % (Auto) 11.5 L Tripp % (Auto) 8.9 H Lymph # (Auto) 0.8 L Seg Neutrophils % 78.6 H PT 16.8 H INR 1.30 H Sodium 125 L Chloride 87.0 L Carbon Dioxide 16 L Creatinine 6.4 H Glucose 888 H* POC Glucose Lactic Acid ALT 6 L Total Creatine Kinase 277 H Troponin T Total Protein 8.8 H Albumin 3.3 L LDL Cholesterol Direct HDL Cholesterol Salicylates Acetaminophen 12/11/20 12/11/20 12/11/20 21:48 21:48 21:48 RBC Hgb Hct MCV MCH MCHC RDW Lymph % (Auto) Tripp % (Auto) Lymph # (Auto) Seg Neutrophils % PT INR Sodium Chloride Carbon Dioxide Creatinine Glucose POC Glucose Lactic Acid 5.70 H* ALT Total Creatine Kinase Troponin T Total Protein Albumin LDL Cholesterol Direct HDL Cholesterol Salicylates < 0.3 L Acetaminophen 5.0 L 12/12/20 12/12/20 12/12/20 00:06 01:24 01:38 RBC Hgb Hct MCV MCH MCHC RDW Lymph % (Auto) Tripp % (Auto) Lymph # (Auto) Seg Neutrophils % PT INR Sodium Chloride Carbon Dioxide Creatinine Glucose POC Glucose > 600 H > 600 H Lactic Acid 5.70 H* ALT Total Creatine Kinase Troponin T Total Protein Albumin LDL Cholesterol Direct HDL Cholesterol Salicylates Acetaminophen 12/12/20 12/12/20 12/12/20 01:38 03:43 05:02 RBC Hgb Hct MCV MCH MCHC RDW Lymph % (Auto) Tripp % (Auto) Lymph # (Auto) Seg Neutrophils % PT INR Sodium 129 L Chloride 91.3 L Carbon Dioxide 20 L Creatinine 6.7 H Glucose 723 H* POC Glucose 571 H 477 H Lactic Acid ALT Total Creatine Kinase Troponin T Total Protein Albumin LDL Cholesterol Direct HDL Cholesterol Salicylates Acetaminophen 12/12/20 12/12/20 12/12/20 05:55 05:55 05:58 RBC Hgb Hct MCV MCH MCHC RDW Lymph % (Auto) Tripp % (Auto) Lymph # (Auto) Seg Neutrophils % PT INR Sodium 134 L Chloride 95.1 L Carbon Dioxide 21 L Creatinine 6.5 H Glucose 417 H POC Glucose 367 H Lactic Acid 5.20 H* ALT Total Creatine Kinase Troponin T Total Protein Albumin LDL Cholesterol Direct HDL Cholesterol Salicylates Acetaminophen 12/12/20 12/12/20 12/12/20 07:05 08:30 10:39 RBC Hgb Hct MCV MCH MCHC RDW Lymph % (Auto) Tripp % (Auto) Lymph # (Auto) Seg Neutrophils % PT INR Sodium Chloride Carbon Dioxide Creatinine Glucose POC Glucose 339 H 252 H 181 H Lactic Acid ALT Total Creatine Kinase Troponin T Total Protein Albumin LDL Cholesterol Direct HDL Cholesterol Salicylates Acetaminophen 12/12/20 12/12/20 12/12/20 12:03 13:49 13:49 RBC Hgb Hct MCV MCH MCHC RDW Lymph % (Auto) Tripp % (Auto) Lymph # (Auto) Seg Neutrophils % PT INR Sodium 135 L Chloride Carbon Dioxide Creatinine 7.0 H Glucose 65 L POC Glucose 112 H Lactic Acid 3.10 H* ALT Total Creatine Kinase Troponin T Total Protein Albumin LDL Cholesterol Direct HDL Cholesterol Salicylates Acetaminophen 12/12/20 12/13/20 12/13/20 13:49 00:21 05:58 RBC Hgb Hct MCV MCH MCHC RDW Lymph % (Auto) Tripp % (Auto) Lymph # (Auto) Seg Neutrophils % PT INR Sodium Chloride Carbon Dioxide Creatinine Glucose POC Glucose 297 H Lactic Acid ALT Total Creatine Kinase Troponin T 0.236 H* 0.215 H* Total Protein Albumin LDL Cholesterol Direct 24 L HDL Cholesterol 28 L Salicylates Acetaminophen 12/13/20 12/13/20 12/13/20 05:58 05:58 05:58 RBC 2.47 L Hgb 8.3 L Hct 25.2 L MCV 102 H MCH 33 H MCHC RDW 17.8 H Lymph % (Auto) Tripp % (Auto) Lymph # (Auto) Seg Neutrophils % PT INR Sodium Chloride 94.9 L Carbon Dioxide Creatinine 5.0 H Glucose 406 H POC Glucose Lactic Acid 2.60 H* ALT 6 L Total Creatine Kinase Troponin T Total Protein Albumin 3.2 L LDL Cholesterol Direct HDL Cholesterol Salicylates Acetaminophen 12/13/20 12/13/20 12/13/20 12:08 16:02 23:11 RBC Hgb Hct MCV MCH MCHC RDW Lymph % (Auto) Tripp % (Auto) Lymph # (Auto) Seg Neutrophils % PT INR Sodium Chloride Carbon Dioxide Creatinine Glucose POC Glucose 184 H 143 H Lactic Acid ALT Total Creatine Kinase Troponin T 0.210 H* Total Protein Albumin LDL Cholesterol Direct HDL Cholesterol Salicylates Acetaminophen 12/13/20 12/14/20 12/14/20 23:59 07:28 08:08 RBC 2.52 L Hgb 8.4 L Hct 25.6 L MCV 101 H MCH 33 H MCHC RDW 18.1 H Lymph % (Auto) Tripp % (Auto) Lymph # (Auto) Seg Neutrophils % PT INR Sodium Chloride Carbon Dioxide Creatinine Glucose POC Glucose 203 H 139 H Lactic Acid ALT Total Creatine Kinase Troponin T Total Protein Albumin LDL Cholesterol Direct HDL Cholesterol Salicylates Acetaminophen Assessment and Plan #Assessment and Plan this is 45 ys old male with hx of ESRD and DM presented with increase lethargy and confusion -finding on exam is remarkable for slight left facial droop and possibly right side weakness CVA can not be excluded - lethargy with in and out of sleep ? toximetabloic and or infection +++ R/O seizure # Hyperosmolar hyperglycemic state (HHS) -Patient admitted and placed on insulin drip and IV fluid. We will monitor Accu-Cheks closely. # Acute encephalopathy -Possibly secondary to underlying pneumonia and on the metabolic acidosis. # Pneumonia -Patient placed on empiric IV antibiotics. We also placed on isolation precautions to rule out COVID-19 . Consult placed to infectious disease for evaluation. # End stage renal disease -On Dialysis today # Macrocytic anemia -Possibly chronic. Will monitor CBC. # DVT prophylaxis -Patient placed on subcutaneous heparin. # Full code status -Patient is full code. PLAN 1- Brain MRI r/o CVA ,Add ASA 325 mg daily 2- EEG 3- Treat underlying infection 4- Treat underlying suger and electrolytes abn. 5- Hemodialysis 6- AVOID sedative narcotic and pain medication which might be contributing factor for change in mentation will follow
[2020-12-14 08:55] LABS: C-Reactive Protein 5.6 mg/dL (0.00-1.30); Calcium 9.3 mg/dL (8.4-10.2)
--- NOTE | 2020-12-14 09:51 | Electrocardiograph Report ---
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
--- NOTE | 2020-12-14 11:16 | Progress Note ---
Assessment and Plan Assessment and plan: 45-year-old -[place] male with significant past medical history of hypertension, congestive heart failure, GERD, end-stage renal disease on dialysis, diabetes mellitus and left below-knee amputation was brought into the emergency room by EMS on 12/11/2020 for altered mental status and elevated blood sugar. Most of the history was gotten from the ER staff as patient is unable to give any history. Family members were also not available.Upon arrival in the emergency room, patient has been intermittently awake but not able to give any history. Work-up however revealed hemoglobin of 8.3 and hematocrit of 27.2, sodium of 125, anion gap of 27 and a blood glucose of about 888. He had a lactic acidosis of 5.7. CT scan of the head shows no acute intracranial abnormality. Chest x-ray showed bilateral pneumonia. The patient was admitted with diagnosis of acute hypoxic respiratory failure, bilateral pneumonia, severe sepsis (patient meets criteria given the tachycardia, altered mentation, diagnosis of pneumonia and lactic acidosis), DKA, toxic metabolic encephalopathy, NSTEMI type II(likely related to sepsis), elevated troponins likely secondary to ESRD and ESRD on hemodialysis. The patient was started on IV antibiotics of ceftriaxone and azithromycin. Patient was noted to have bi lateral pneumonia but COVID negative. The patient was also initially started on IV insulin drip which was later weaned off and transition to long-acting insulin. ID, pulmonary, cardiology, nephrology and neurology are consulted throughout hospitalization. Acute hypoxic respiratory failure DKA. Resolved. Bilateral pneumonia. Severe sepsis. patient meets criteria given the tachycardia, altered mentation, diagnosis of pneumonia and lactic acidosis Toxic metabolic encephalopathy NSTEMI type II Elevated troponin ESRD on HD PVD s/p left BKA DM type II History of diastolic heart failure. Compensated 12/14/2020. Echocardiogram reveals left ventricular systolic function normal with an EF of 50 to 55%. Mild diastolic dysfunction with impaired relaxation. Etiology of encephalopathy secondary to toxic metabolic causes associated with pneumonia, metabolic acidosis and sepsis. Patient remains confused. CT scan of the head negative. Patient with no lateralizing signs or symptoms. Neurology following. History Interval history: No new issues overnight Hospitalist Physical - Constitutional Vitals: Temp Pulse Resp BP Pulse Ox 97.5 F L 85 16 164/80 100 12/14/20 09:00 12/14/20 10:45 12/14/20 09:00 12/14/20 10:45 12/14/20 09:00 General appearance: Present: no acute distress, obese - EENT Eyes: Present: PERRL, EOM intact ENT: hearing intact, clear oral mucosa, dentition normal - Neck Neck: Present: supple, normal ROM - Respiratory Respiratory effort: normal Respiratory: bilateral: CTA - Cardiovascular Rhythm: regular Heart Sounds: Present: S1 & S2. Absent: gallop, rub - Extremities Extremities: no ischemia, No edema, Full ROM - Abdominal General gastrointestinal: soft, non-tender, non-distended, normal bowel sounds - Integumentary Integumentary: Present: clear, warm, dry - Neurologic Neurologic: CNII-XII intact, moves all extremities HEART Score - HEART Score Troponin: Troponin T 0.210 ng/mL (0.00-0.029) H* 12/13/20 23:11 Results - Labs CBC & Chem 7: 12/14/20 08:08 12/14/20 08:08 Labs: Laboratory Last Values WBC 8.7 K/mm3 (4.5-11.0) 12/14/20 08:08 RBC 2.52 M/mm3 (3.65-5.03) L 12/14/20 08:08 Hgb 8.4 gm/dl (11.8-15.2) L 12/14/20 08:08 Hct 25.6 % (35.5-45.6) L 12/14/20 08:08 MCV 101 fl (84-94) H 12/14/20 08:08 MCH 33 pg (28-32) H 12/14/20 08:08 MCHC 33 % (32-34) 12/14/20 08:08 RDW 18.1 % (13.2-15.2) H 12/14/20 08:08 Plt Count 196 K/mm3 (140-440) 12/14/20 08:08 Lymph % (Auto) 11.5 % (13.4-35.0) L 12/11/20 21:48 [place] % (Auto) 8.9 % (0.0-7.3) H 12/11/20 21:48 Eos % (Auto) 0.2 % (0.0-4.3) 12/11/20 21:48 Baso % (Auto) 0.8 % (0.0-1.8) 12/11/20 21:48 Lymph # (Auto) 0.8 K/mm3 (1.2-5.4) L 12/11/20 21:48 [place] # (Auto) 0.6 K/mm3 (0.0-0.8) 12/11/20 21:48 Eos # (Auto) 0.0 K/mm3 (0.0-0.4) 12/11/20 21:48 Baso # (Auto) 0.1 K/mm3 (0.0-0.1) 12/11/20 21:48 Seg Neutrophils % 78.6 % (40.0-70.0) H 12/11/20 21:48 Seg Neutrophils # 5.3 K/mm3 (1.8-7.7) 12/11/20 21:48 PT 16.8 Sec. (12.2-14.9) H 12/11/20 21:48 INR 1.30 (0.87-1.13) H 12/11/20 21:48 APTT 29.7 Sec. (24.2-36.6) 12/11/20 21:48 D-Dimer 1050.73 ng/mlDDU (0-234) H 12/14/20 08:07 VBG pH 7.329 (7.320-7.420) 12/11/20 21:48 Sodium 141 mmol/L (137-145) 12/14/20 08:08 Potassium 4.5 mmol/L (3.6-5.0) 12/14/20 08:08 Chloride 103.5 mmol/L (98-107) 12/14/20 08:08 Carbon Dioxide 26 mmol/L (22-30) 12/14/20 08:08 Anion Gap 16 mmol/L 12/14/20 08:08 BUN 14 mg/dL (9-20) 12/14/20 08:08 Creatinine 5.8 mg/dL (0.8-1.3) H 12/14/20 08:08 Estimated GFR 13 ml/min 12/14/20 08:08 BUN/Creatinine Ratio 2 % 12/14/20 08:08 Glucose 151 mg/dL (75-100) H 12/14/20 08:08 POC Glucose 139 mg/dL (70-105) H 12/14/20 07:28 Lactic Acid 1.00 mmol/L (0.7-2.0) 12/13/20 23:11 Calcium 9.3 mg/dL (8.4-10.2) 12/14/20 08:08 Phosphorus 4.50 mg/dL (2.5-4.5) 12/14/20 08:08 Magnesium 1.80 mg/dL (1.7-2.3) 12/14/20 08:08 Total Bilirubin 0.40 mg/dL (0.1-1.2) 12/14/20 08:08 AST 20 units/L (5-40) 12/14/20 08:08 ALT 5 units/L (7-56) L 12/14/20 08:08 Alkaline Phosphatase 80 units/L (35-129) 12/14/20 08:08 Ammonia 35.0 umol/L (25-60) 12/11/20 21:48 Lactate Dehydrogenase 293 units/L (91-180) H 12/14/20 08:08 Total Creatine Kinase 277 units/L (55-170) H 12/11/20 21:48 Troponin T 0.210 ng/mL (0.00-0.029) H* 12/13/20 23:11 C-Reactive Protein 5.60 mg/dL (0.00-1.30) H 12/14/20 08:08 Total Protein 7.8 g/dL (6.3-8.2) 12/14/20 08:08 Albumin 3.0 g/dL (3.9-5) L 12/14/20 08:08 Albumin/Globulin Ratio 0.6 % 12/14/20 08:08 Triglycerides 87 mg/dL (2-149) 12/12/20 13:49 Cholesterol 65 mg/dL (50-199) 12/12/20 13:49 LDL Cholesterol Direct 24 mg/dL (50-130) L 12/12/20 13:49 HDL Cholesterol 28 mg/dL (40-59) L 12/12/20 13:49 Cholesterol/HDL Ratio 2.32 % 12/12/20 13:49 Procalcitonin 4.71 ng/mL (<0.15) 12/14/20 08:07 TSH 2.520 mlU/mL (0.270-4.200) 12/11/20 21:48 Salicylates < 0.3 mg/dL (2.8-20.0) L 12/11/20 21:48 Acetaminophen 5.0 ug/mL (10.0-30.0) L 12/11/20 21:48 Plasma/Serum Alcohol < 0.01 % (0-0.07) 12/11/20 21:48 Coronavirus (PCR) Negative (Negative) 12/11/20 08:50 Hepatitis A IgM Ab Non-reactive (NonReactive) 12/12/20 13:49 Hep Bs Antigen Nonreactive (Negative) 12/12/20 13:49 Hep B Core IgM Ab Non-reactive (NonReactive) 12/12/20 13:49 Hepatitis C Antibody Non-reactive (NonReactive) 12/12/20 13:49 Microbiology: Microbiology 12/11/20 21:48 Peripheral/Venous Blood Culture - Preliminary NO GROWTH AFTER 48 HOURS 12/11/20 21:54 Peripheral/Venous Blood Culture - Preliminary NO GROWTH AFTER 48 HOURS Active Medications - Current Medications Current Medications: Generic Name Dose Route Start Last Admin Trade Name Freq PRN Reason Stop Dose Admin Acetaminophen 650 mg 12/11/20 23:01 Acetaminophen 325 Mg/10.15 Ml Oral Liqd Unit Dose FEEDTUBE Q6H PRN Pain MILD(1-3)/Fever >100.5/GILLIAM Dextrose 50 ml 12/13/20 10:47 Dextrose 50% In Water (25gm) 50 Ml Syringe IV Q30MIN PRN Hypoglycemia Protocol Docusate Sodium 100 mg 12/13/20 22:00 12/13/20 22:37 Docusate Sodium 100 Mg Cap PO 100 mg BID KARINA Administration Heparin Sodium (Porcine) 5,000 unit 12/12/20 06:00 12/14/20 05:39 Heparin 5,000 Unit/1 Ml Vial SUB-Q 5,000 unit Q8HR KARINA Administration Ceftriaxone Sodium 2 gm in 100 mls @ 200 mls/hr 12/12/20 22:00 12/14/20 00:26 Rocephin/Ns 2 Gm/100 Ml IV Infused Q24H KARINA Infusion Protocol Azithromycin 500 mg in 250 mls @ 250 mls/hr 12/12/20 22:00 12/14/20 02:23 Zithromax/Ns IV Infused Q24H KARINA Infusion Sodium Chloride 100 mls @ 999 mls/hr 12/12/20 08:17 Nacl 0.9% IV BREANA PRN Hypotension Insulin Glargine 15 units 12/13/20 22:00 12/13/20 23:51 Insulin Glargine 100 Units/Ml SUB-Q 15 units QHS KARINA Administration Insulin Human Regular 0 units 12/13/20 11:30 12/14/20 07:48 Insulin Regular, Human 100 Units/1 Ml SUB-Q Not Given ACHS [facility] Protocol Lorazepam 2 mg 12/13/20 16:33 12/14/20 05:14 Lorazepam 2 Mg/Ml Vial IV 2 mg Q6H PRN Administration Agitation Metoclopramide HCl 5 mg 12/12/20 01:12 12/13/20 06:07 Metoclopramide 10 Mg/2 Ml Inj IV 5 mg Q6H PRN Administration Nausea And Vomiting Morphine Sulfate 4 mg 12/11/20 23:01 12/13/20 11:23 Morphine 4 Mg/1 Ml Inj IV 4 mg Q4H PRN Administration Pain , Severe (7-10) Sodium Chloride 10 ml 12/12/20 10:00 12/13/20 23:53 Sodium Chloride 0.9% 10 Ml Flush Syringe IV 10 ml BID KARINA Administration Sodium Chloride 10 ml 12/11/20 23:01 Sodium Chloride 0.9% 10 Ml Flush Syringe IV PRN PRN LINE FLUSH
--- NOTE | 2020-12-14 12:27 | Progress Note ---
Assessment and Plan Diabetic ketoacidosis/hyperosmolar nonketotic coma Acute toxic metabolic encephalopathy End-stage renal disease, on dialysis History of hypertension Congestive heart failure Gastroesophageal reflux disease - prn supplemental oxygen to keep O2 sats > 90% - prn bronchodilators (RYANNE) with pulmonary hygiene per RT - continue HD/UF per nephrology prescription for toxin and volume clearance - continue to avoid nephrotoxins, renally dose all medications - complete empiric AB's per ID recommendations - mobility protocols to prevent pressure ulcers - PT/OT as tolerated - Wound care per RN/WCT - continue accuchecks with glycemic control per SSI for target blood glucose < 180 mg/dL - home oxygen evaluation at discharge - GI & VTE prophylaxis - Flu & pneumovax per protocol - prn analgesia per pain score - continue other care per attending / other consultants - discharge planning OK pulmonary-leon ... re-evaluate in am & prn Subjective Date of service: 12/14/20 Principal diagnosis: DKA; Acute toxic metabolic encephalopathy; ESRD; HTN; CHF; GERD Interval history: Patient is seen today for: DKA; Acute toxic metabolic encephalopathy; ESRD; HTN; CHF; GERD Seen and examined at bedside; 24hour events reviewed; nursing and respiratory care staff consulted; no adverse overnight events reported to me; resting peacefully in bed; more alert; denies acute chest pain or SOB Objective Vital Signs - 12hr 12/14/20 12/14/20 12/14/20 07:30 09:00 09:10 Temperature 98 F 97.5 F L Pulse Rate 89 90 90 Respiratory 18 16 Rate Blood Pressure 160/89 160/89 Blood Pressure 142/84 [Right] O2 Sat by Pulse 98 Oximetry O2 Sat by Pulse 100 Oximetry [ Anterior Bilateral] 12/14/20 12/14/20 12/14/20 09:15 09:30 09:45 Temperature Pulse Rate 89 90 85 Respiratory Rate Blood Pressure 156/85 150/84 159/99 Blood Pressure [Right] O2 Sat by Pulse Oximetry O2 Sat by Pulse Oximetry [ Anterior Bilateral] 12/14/20 12/14/20 12/14/20 10:00 10:15 10:30 Temperature Pulse Rate 85 88 87 Respiratory Rate Blood Pressure 154/87 185/92 159/88 Blood Pressure [Right] O2 Sat by Pulse Oximetry O2 Sat by Pulse Oximetry [ Anterior Bilateral] 08/12/14/20 12/14/20 10:45 11:00 11:15 Temperature Pulse Rate 85 88 94 H Respiratory Rate Blood Pressure 164/80 161/87 147/91 Blood Pressure [Right] O2 Sat by Pulse Oximetry O2 Sat by Pulse Oximetry [ Anterior Bilateral] 12/14/20 12/14/20 12/14/20 11:30 11:45 12:01 Temperature Pulse Rate 95 H 91 H 91 H Respiratory Rate Blood Pressure 158/90 169/96 162/100 Blood Pressure [Right] O2 Sat by Pulse Oximetry O2 Sat by Pulse Oximetry [ Anterior Bilateral] 12/14/20 12:16 Temperature Pulse Rate 90 Respiratory Rate Blood Pressure 157/86 Blood Pressure [Right] O2 Sat by Pulse Oximetry O2 Sat by Pulse Oximetry [ Anterior Bilateral] Constitutional: no acute distress Eyes: non-icteric ENT: oropharynx moist Neck: supple, no lymphadenopathy Effort: normal Ascultation: Bilateral: clear, diminished breath sounds Percussion: Bilateral: not dull Cardiovascular: regular rate and rhythm Gastrointestinal: normoactive bowel sounds Integumentary: normal Extremities: pulses normal, edema (trace to 1+) Neurologic: pupils equal and round, unable to assess, other (unable to assess as patient is in deep sleep) Psychiatric: other (unable to assess as patient is in deep sleep) CBC and BMP: 12/14/20 08:08 12/14/20 08:08 ABG, PT/INR, D-dimer: PT/INR, D-dimer PT 16.8 Sec. (12.2-14.9) H 12/11/20 21:48 INR 1.30 (0.87-1.13) H 12/11/20 21:48 D-Dimer 1050.73 ng/mlDDU (0-234) H 12/14/20 08:07 Abnormal lab findings: Abnormal Labs 12/11/20 12/11/20 12/11/20 21:48 21:48 21:48 RBC 2.46 L Hgb 8.3 L Hct 27.2 L MCV 111 H MCH 34 H MCHC 30 L RDW 18.2 H Lymph % (Auto) 11.5 L [place] % (Auto) 8.9 H Lymph # (Auto) 0.8 L Seg Neutrophils % 78.6 H PT 16.8 H INR 1.30 H D-Dimer Sodium 125 L Chloride 87.0 L Carbon Dioxide 16 L Creatinine 6.4 H Glucose 888 H* POC Glucose Lactic Acid Ferritin ALT 6 L Lactate Dehydrogenase Total Creatine Kinase 277 H Troponin T C-Reactive Protein Total Protein 8.8 H Albumin 3.3 L LDL Cholesterol Direct HDL Cholesterol Salicylates Acetaminophen 12/11/20 12/11/20 12/11/20 21:48 21:48 21:48 RBC Hgb Hct MCV MCH MCHC RDW Lymph % (Auto) [place] % (Auto) Lymph # (Auto) Seg Neutrophils % PT INR D-Dimer Sodium Chloride Carbon Dioxide Creatinine Glucose POC Glucose Lactic Acid 5.70 H* Ferritin ALT Lactate Dehydrogenase Total Creatine Kinase Troponin T C-Reactive Protein Total Protein Albumin LDL Cholesterol Direct HDL Cholesterol Salicylates < 0.3 L Acetaminophen 5.0 L 12/12/20 12/12/20 12/12/20 00:06 01:24 01:38 RBC Hgb Hct MCV MCH MCHC RDW Lymph % (Auto) [place] % (Auto) Lymph # (Auto) Seg Neutrophils % PT INR D-Dimer Sodium Chloride Carbon Dioxide Creatinine Glucose POC Glucose > 600 H > 600 H Lactic Acid 5.70 H* Ferritin ALT Lactate Dehydrogenase Total Creatine Kinase Troponin T C-Reactive Protein Total Protein Albumin LDL Cholesterol Direct HDL Cholesterol Salicylates Acetaminophen 12/12/20 12/12/20 12/12/20 01:38 03:43 05:02 RBC Hgb Hct MCV MCH MCHC RDW Lymph % (Auto) [place] % (Auto) Lymph # (Auto) Seg Neutrophils % PT INR D-Dimer Sodium 129 L Chloride 91.3 L Carbon Dioxide 20 L Creatinine 6.7 H Glucose 723 H* POC Glucose 571 H 477 H Lactic Acid Ferritin ALT Lactate Dehydrogenase Total Creatine Kinase Troponin T C-Reactive Protein Total Protein Albumin LDL Cholesterol Direct HDL Cholesterol Salicylates Acetaminophen 12/12/20 12/12/20 12/12/20 05:55 05:55 05:58 RBC Hgb Hct MCV MCH MCHC RDW Lymph % (Auto) [place] % (Auto) Lymph # (Auto) Seg Neutrophils % PT INR D-Dimer Sodium 134 L Chloride 95.1 L Carbon Dioxide 21 L Creatinine 6.5 H Glucose 417 H POC Glucose 367 H Lactic Acid 5.20 H* Ferritin ALT Lactate Dehydrogenase Total Creatine Kinase Troponin T C-Reactive Protein Total Protein Albumin LDL Cholesterol Direct HDL Cholesterol Salicylates Acetaminophen 12/12/20 12/12/20 12/12/20 07:05 08:30 10:39 RBC Hgb Hct MCV MCH MCHC RDW Lymph % (Auto) [place] % (Auto) Lymph # (Auto) Seg Neutrophils % PT INR D-Dimer Sodium Chloride Carbon Dioxide Creatinine Glucose POC Glucose 339 H 252 H 181 H Lactic Acid Ferritin ALT Lactate Dehydrogenase Total Creatine Kinase Troponin T C-Reactive Protein Total Protein Albumin LDL Cholesterol Direct HDL Cholesterol Salicylates Acetaminophen 12/12/20 12/12/20 12/12/20 12:03 13:49 13:49 RBC Hgb Hct MCV MCH MCHC RDW Lymph % (Auto) [place] % (Auto) Lymph # (Auto) Seg Neutrophils % PT INR D-Dimer Sodium 135 L Chloride Carbon Dioxide Creatinine 7.0 H Glucose 65 L POC Glucose 112 H Lactic Acid 3.10 H* Ferritin ALT Lactate Dehydrogenase Total Creatine Kinase Troponin T C-Reactive Protein Total Protein Albumin LDL Cholesterol Direct HDL Cholesterol Salicylates Acetaminophen 12/12/20 12/13/20 12/13/20 13:49 00:21 05:58 RBC Hgb Hct MCV MCH MCHC RDW Lymph % (Auto) [place] % (Auto) Lymph # (Auto) Seg Neutrophils % PT INR D-Dimer Sodium Chloride Carbon Dioxide Creatinine Glucose POC Glucose 297 H Lactic Acid Ferritin ALT Lactate Dehydrogenase Total Creatine Kinase Troponin T 0.236 H* 0.215 H* C-Reactive Protein Total Protein Albumin LDL Cholesterol Direct 24 L HDL Cholesterol 28 L Salicylates Acetaminophen 12/13/20 12/13/20 12/13/20 05:58 05:58 05:58 RBC 2.47 L Hgb 8.3 L Hct 25.2 L MCV 102 H MCH 33 H MCHC RDW 17.8 H Lymph % (Auto) [place] % (Auto) Lymph # (Auto) Seg Neutrophils % PT INR D-Dimer Sodium Chloride 94.9 L Carbon Dioxide Creatinine 5.0 H Glucose 406 H POC Glucose Lactic Acid 2.60 H* Ferritin ALT 6 L Lactate Dehydrogenase Total Creatine Kinase Troponin T C-Reactive Protein Total Protein Albumin 3.2 L LDL Cholesterol Direct HDL Cholesterol Salicylates Acetaminophen 12/13/20 12/13/20 12/13/20 12:08 16:02 23:11 RBC Hgb Hct MCV MCH MCHC RDW Lymph % (Auto) [place] % (Auto) Lymph # (Auto) Seg Neutrophils % PT INR D-Dimer Sodium Chloride Carbon Dioxide Creatinine Glucose POC Glucose 184 H 143 H Lactic Acid Ferritin ALT Lactate Dehydrogenase Total Creatine Kinase Troponin T 0.210 H* C-Reactive Protein Total Protein Albumin LDL Cholesterol Direct HDL Cholesterol Salicylates Acetaminophen 12/13/20 12/14/20 12/14/20 23:59 07:28 08:07 RBC Hgb Hct MCV MCH MCHC RDW Lymph % (Auto) [place] % (Auto) Lymph # (Auto) Seg Neutrophils % PT INR D-Dimer 1050.73 H Sodium Chloride Carbon Dioxide Creatinine Glucose POC Glucose 203 H 139 H Lactic Acid Ferritin ALT Lactate Dehydrogenase Total Creatine Kinase Troponin T C-Reactive Protein Total Protein Albumin LDL Cholesterol Direct HDL Cholesterol Salicylates Acetaminophen 12/14/20 12/14/20 12/14/20 08:07 08:08 08:08 RBC 2.52 L Hgb 8.4 L Hct 25.6 L MCV 101 H MCH 33 H MCHC RDW 18.1 H Lymph % (Auto) [place] % (Auto) Lymph # (Auto) Seg Neutrophils % PT INR D-Dimer Sodium Chloride Carbon Dioxide Creatinine 5.8 H Glucose 151 H POC Glucose Lactic Acid Ferritin 1368.0 H ALT 5 L Lactate Dehydrogenase Total Creatine Kinase Troponin T C-Reactive Protein Total Protein Albumin 3.0 L LDL Cholesterol Direct HDL Cholesterol Salicylates Acetaminophen 12/14/20 08:08 RBC Hgb Hct MCV MCH MCHC RDW Lymph % (Auto) [place] % (Auto) Lymph # (Auto) Seg Neutrophils % PT INR D-Dimer Sodium Chloride Carbon Dioxide Creatinine Glucose POC Glucose Lactic Acid Ferritin ALT Lactate Dehydrogenase 293 H Total Creatine Kinase Troponin T C-Reactive Protein 5.60 H Total Protein Albumin LDL Cholesterol Direct HDL Cholesterol Salicylates Acetaminophen Allied health notes reviewed: nursing
[2020-12-14] MEDS: DOCUSATE SODIUM 100 MG CAP PO SCH ×2 (13:33→21:32)
--- NOTE | 2020-12-14 13:49 | Progress Note ---
Assessment and Plan Cultures: SARS CoV2 PCR: negative 12/11/2020 blood culture: No growth A/P: 45-year-old male with hypertension, CHF, ESRD on HD, diabetes, left BKA admitted to the hospital with altered mental status: #Bilateral pneumonia v/s fluid overload: negative COVID-19 PCR. Not signficantly hypoxic. Blood cultures with no growth. #Hyperosmolar hyperglycemic state: Glycemic correction per primary team. #Acute encephalopathy: Likely secondary to above. Neurology also on board. #ESRD on HD: Renally dose antibiotics as needed. Recs: -Procalcitonin 4.71, complete empiric antibiotic course tomorrow (D5) ID will sign off. Please call with questions Jesús Holliday MD, FACP [facility] O: [phone] F: [phone] Subjective Date of service: 12/14/20 Principal diagnosis: DKA; Acute toxic metabolic encephalopathy; ESRD; HTN; CHF; GERD Interval history: Remains afebrile, saturating 98% on 2 L oxygen by nasal cannula. More awake today, eating food. Objective - Exam Narrative Exam: Physical Exam: Constitutional: more awake Head, Ears, Nose: Normocephalic, atraumatic. External ears, nose normal Eyes: Conjunctivae/corneas clear. No icterus. No ptosis. Neck: Supple, no meningeal signs Cardiovascular: S1, S2 + Respiratory: Good air entry, clear to auscultation bilaterally GI: Soft, non-tender; bowel sounds normal. No peritoneal signs Musculoskeletal: No pedal edema, no cyanosis. left BKA Skin: No rash or abscess Hem/Lymphatic: No palpable cervical or supraclavicular nodes. No lymphangitis Psych: no agitatoin Neurological: awake, alert, eating his meals - Constitutional Vitals: Vital Signs Temp Pulse Resp BP Pulse Ox 97.5 F L 91 H 16 159/75 100 12/14/20 13:00 12/14/20 13:00 12/14/20 13:00 12/14/20 13:00 12/14/20 13:00 Temperature -Last 24 Hours Temperature 97.5 F Temperature 97.5 F Temperature 98 F - Labs CBC & Chem 7: 12/14/20 08:08 12/14/20 08:08 Labs: Abnormal lab results 12/13/20 12/13/20 12/13/20 Range/Units 16:02 23:11 23:59 RBC (3.65-5.03) M/mm3 Hgb (11.8-15.2) gm/dl Hct (35.5-45.6) % MCV (84-94) fl MCH (28-32) pg RDW (13.2-15.2) % D-Dimer (0-234) ng/mlDDU Creatinine (0.8-1.3) mg/dL Glucose (75-100) mg/dL POC Glucose 143 H 203 H (70-105) mg/dL Ferritin (30.0-300.0) ng/mL ALT (7-56) units/L Lactate Dehydrogenase (91-180) units/L Troponin T 0.210 H* (0.00-0.029) ng/mL C-Reactive Protein (0.00-1.30) mg/dL Albumin (3.9-5) g/dL 12/14/20 12/14/20 12/14/20 Range/Units 07:28 08:07 08:07 RBC (3.65-5.03) M/mm3 Hgb (11.8-15.2) gm/dl Hct (35.5-45.6) % MCV (84-94) fl MCH (28-32) pg RDW (13.2-15.2) % D-Dimer 1050.73 H (0-234) ng/mlDDU Creatinine (0.8-1.3) mg/dL Glucose (75-100) mg/dL POC Glucose 139 H (70-105) mg/dL Ferritin 1368.0 H (30.0-300.0) ng/mL ALT (7-56) units/L Lactate Dehydrogenase (91-180) units/L Troponin T (0.00-0.029) ng/mL C-Reactive Protein (0.00-1.30) mg/dL Albumin (3.9-5) g/dL 12/14/20 12/14/20 12/14/20 Range/Units 08:08 08:08 08:08 RBC 2.52 L (3.65-5.03) M/mm3 Hgb 8.4 L (11.8-15.2) gm/dl Hct 25.6 L (35.5-45.6) % MCV 101 H (84-94) fl MCH 33 H (28-32) pg RDW 18.1 H (13.2-15.2) % D-Dimer (0-234) ng/mlDDU Creatinine 5.8 H (0.8-1.3) mg/dL Glucose 151 H (75-100) mg/dL POC Glucose (70-105) mg/dL Ferritin (30.0-300.0) ng/mL ALT 5 L (7-56) units/L Lactate Dehydrogenase 293 H (91-180) units/L Troponin T (0.00-0.029) ng/mL C-Reactive Protein 5.60 H (0.00-1.30) mg/dL Albumin 3.0 L (3.9-5) g/dL
[2020-12-14] MEDS ORDERED: METOPROLOL TARTRATE 5 MG/5 ML INJ IV PRN (15:20)
[2020-12-14] MEDS: METOCLOPRAMIDE 10 MG/2 ML INJ IV PRN (15:35)
[2020-12-14] MEDS: DEXTROSE 50% IN WATER (25GM) 50 ML SYRINGE IV PRN ×2 (18:10→20:48)
--- NOTE | 2020-12-14 18:59 | Progress Note ---
Assessment and Plan Volume optimization via HD. Plan for ischemic eval when clinically stable. Will resume Coreg 3.125mg BID with hold parameters. Consider confirmatory testing of PE/DVT given elevated D-dimer. Pt seen in conjunction with Dr. Allen, who agrees with the assessment and plan of care. - Patient Problems (1) Acute encephalopathy Current Visit: Yes Status: Acute (2) Hyperosmolar hyperglycemic state (HHS) Current Visit: Yes Status: Acute (3) Pneumonia Current Visit: Yes Status: Acute (4) NSTEMI (non-ST elevated myocardial infarction) Current Visit: Yes Status: Acute Plan to address problem: Type 2 (5) Severe pulmonary hypertension Current Visit: Yes Status: Chronic (6) ESRD (end stage renal disease) on dialysis Current Visit: Yes Status: Chronic (7) Anemia Current Visit: Yes Status: Chronic (8) HTN (hypertension) Current Visit: Yes Status: Chronic Qualifiers: Hypertension type: primary hypertension Qualified Code(s): I10 - Essential (primary) hypertension (9) Type 2 diabetes mellitus with diabetic chronic kidney disease Current Visit: Yes Status: Chronic Subjective Date of service: 12/14/20 Principal diagnosis: NSTEMI 2 Interval history: Agitated. States he wants to get out of the hospital. No cardiac complaints. Tele reviewed - SR 90s, no events. Objective Last Vital Signs Temp 97.5 F L 12/14/20 13:00 Pulse 150 H 12/14/20 17:25 Resp 16 12/14/20 13:00 BP 156/87 12/14/20 17:25 Pulse Ox 100 12/14/20 13:00 - Physical Examination General: Other (agitated) HEENT: Positive: Normocephaly Neck: Positive: neck supple, trachea midline Cardiac: Positive: Reg Rate and Rhythm, S1/S2 Lungs: Positive: Decreased Breath Sounds Neuro: Positive: Other (agitated) Abdomen: Positive: Soft. Negative: Tender Skin: Negative: Rash Musculoskeletal: No Pain Extremities: Present: lower extr. pulses, edema, Cool - Labs and Meds Cardiac Enzymes 12/14/20 12/14/20 Range/Units 08:08 08:08 AST 20 (5-40) units/L Lactate Dehydrogenase 293 H (91-180) units/L CBC 12/14/20 Range/Units 08:08 WBC 8.7 (4.5-11.0) K/mm3 RBC 2.52 L (3.65-5.03) M/mm3 Hgb 8.4 L (11.8-15.2) gm/dl Hct 25.6 L (35.5-45.6) % Plt Count 196 (140-440) K/mm3 Comprehensive Metabolic Panel 12/14/20 Range/Units 08:08 Sodium 141 (137-145) mmol/L Potassium 4.5 (3.6-5.0) mmol/L Chloride 103.5 (98-107) mmol/L Carbon Dioxide 26 (22-30) mmol/L BUN 14 (9-20) mg/dL Creatinine 5.8 H (0.8-1.3) mg/dL Glucose 151 H (75-100) mg/dL Calcium 9.3 (8.4-10.2) mg/dL AST 20 (5-40) units/L ALT 5 L (7-56) units/L Alkaline Phosphatase 80 (35-129) units/L Total Protein 7.8 (6.3-8.2) g/dL Albumin 3.0 L (3.9-5) g/dL - Imaging and Cardiology EKG: report reviewed, image reviewed Echo: report reviewed (12/12/2020 - EF 50-55%, mild LVH, RV mildly dilated & hypokinetic, mod-severe TR, mod-severe pulm HTN with RVSP 87mmHg) - Telemetry EKG Rhythm: Sinus Rhythm - EKG Sinus rhythms and dysrhythmias: sinus rhythm
[2020-12-14] MEDS: cefTRIAXone/NS 2 GM/100 ML 2 GM/100 ML BAG IV SCH (21:32)
[2020-12-14] MEDS: AZITHROMYCIN/NS 500 MG/250 ML 500 MG/250 ML BAG IV SCH (21:32)
[2020-12-14] MEDS: METOPROLOL SUCCINATE XL 25 MG TAB PO SCH (21:33)
[2020-12-14] MEDS: INSULIN GLARGINE 100 UNITS/ML SUB-Q SCH (21:34)
[2020-12-14] MEDS ORDERED: carvediloL 3.125 MG TAB PO SCH (22:00)
[2020-12-15] MEDS: HEPARIN 5,000 UNIT/1 ML VIAL SUB-Q SCH (05:30)
[2020-12-15] MEDS: METOPROLOL SUCCINATE XL 25 MG TAB PO SCH ×2 (08:02→09:46)
--- NOTE | 2020-12-15 09:15 | Progress Note ---
Assessment and Plan - Patient Problems (1) Acute encephalopathy Current Visit: Yes Status: Acute Plan to address problem: toxic/metabolic encephalopathy. Suspect metabolic due to hyperglycemia and possible uremia. Mental status is now improving. (2) Hyponatremia Current Visit: Yes Status: Acute Plan to address problem: factitious hyponatremia secondary to severe hyperglycemia. Sodium improved with correction of hyperglycemia (3) Hyperosmolar hyperglycemic state (HHS) Current Visit: Yes Status: Acute Plan to address problem: blood sugar is quite labile. Has improved back to normal. Continue blood sugar management by primary attending. (4) Anemia in chronic kidney disease, on chronic dialysis Current Visit: Yes Status: Acute Plan to address problem: give erythropoietin on dialysis and follow-up hemoglobin (5) Type 2 diabetes mellitus with diabetic chronic kidney disease Current Visit: Yes Status: Chronic Plan to address problem: Blood sugar management by primary attending. (6) Hypertensive chronic kidney disease with stage 5 chronic kidney disease or end stage renal disease Current Visit: Yes Status: Acute Plan to address problem: Monitor blood pressure on current medications (7) End stage renal disease Current Visit: Yes Status: Acute Plan to address problem: hemodialysis on a Friday, and Friday schedule. Reevaluate (8) Metabolic acidosis Current Visit: Yes Status: Acute Plan to address problem: bicarbonate is back to normal postdialysis (9) Pneumonia Current Visit: Yes Status: Acute Plan to address problem: Covid 19 PCR negative. Continue antibiotics per primary attending. Subjective Date of service: 12/15/20 Principal diagnosis: DKA; Acute toxic metabolic encephalopathy; ESRD; HTN; CHF; GERD Interval history: Patient seen lying in bed on the medical floor. He is awake today and speaking appropriately. He is oriented to person, knows Justin is the president but is not oriented to place. Objective - Exam Narrative Exam: middle-aged -[place] male lying in bed in no acute distress HEENT: Normocephalic atraumatic, pupils equal round reactive to light Neck: Supple, no venous distention, no goiter CVS: S1S2 RRR No murmur, No rub or gallop Lungs: Clear to auscultation, no use of accessory muscles of respiration Abdomen: Full, soft, nontender, no organomegaly no bruit, bowel sounds are present Extremities: mild edema right foot, left below knee amputation with stump clean and dry, hyperpigmentation both lower extremities, no cyanosis or clubbing, left upper extremity AV fistula with dressing intact, bruit and thrill intact Genitourinary: Deferred Musculo-skeletal: No joint deformities or swelling Neuro: Awake, oriented to person, no focal deficits - Vital Signs Vital signs: Vital Signs - 12hr 12/14/20 12/14/20 12/15/20 22:00 23:18 01:55 Temperature 98.5 F Pulse Rate 97 H 98 H Respiratory 20 Rate Blood Pressure 139/79 O2 Sat by Pulse 100 98 Oximetry - Lab 12/14/20 08:08 12/14/20 08:08 Most recent lab results Calcium 9.3 mg/dL (8.4-10.2) 12/14/20 08:08 Phosphorus 4.50 mg/dL (2.5-4.5) 12/14/20 08:08 Magnesium 1.80 mg/dL (1.7-2.3) 12/14/20 08:08 Medications & Allergies - Medications Allergies/Adverse Reactions: Allergies Unable to Assess Allergy (Verified 12/11/20 22:54) UA Active Medications: Generic Name Dose Route Start Last Admin Trade Name Freq PRN Reason Stop Dose Admin Acetaminophen 650 mg 12/11/20 23:01 Acetaminophen 325 Mg/10.15 Ml Oral Liqd Unit Dose FEEDTUBE Q6H PRN Pain MILD(1-3)/Fever >100.5/GILLIAM Aspirin 81 mg 12/15/20 10:00 Aspirin 81 Mg Tab Chew PO QDAY KARINA Atorvastatin Calcium 20 mg 12/14/20 22:00 12/14/20 21:33 Atorvastatin 20 Mg Tab PO 20 mg QHS KARINA Administration Dextrose 50 ml 12/13/20 10:47 12/14/20 20:48 Dextrose 50% In Water (25gm) 50 Ml Syringe IV 15 ml Q30MIN PRN Administration Hypoglycemia Protocol Docusate Sodium 100 mg 12/13/20 22:00 12/14/20 21:32 Docusate Sodium 100 Mg Cap PO 100 mg BID KARINA Administration Heparin Sodium (Porcine) 5,000 unit 12/12/20 06:00 12/15/20 05:30 Heparin 5,000 Unit/1 Ml Vial SUB-Q 5,000 unit Q8HR KARINA Administration Ceftriaxone Sodium 2 gm in 100 mls @ 200 mls/hr 12/12/20 22:00 12/14/20 21:32 Rocephin/Ns 2 Gm/100 Ml IV 200 mls/hr Q24H KARINA Administration Protocol Azithromycin 500 mg in 250 mls @ 250 mls/hr 12/12/20 22:00 12/14/20 21:32 Zithromax/Ns IV 250 mls/hr Q24H KARINA Administration Sodium Chloride 100 mls @ 999 mls/hr 12/12/20 08:17 Nacl 0.9% IV BREANA PRN Hypotension Insulin Glargine 15 units 12/13/20 22:00 12/14/20 21:34 Insulin Glargine 100 Units/Ml SUB-Q Not Given QHS KARINA Insulin Human Regular 0 units 12/13/20 11:30 12/14/20 21:33 Insulin Regular, Human 100 Units/1 Ml SUB-Q Not Given ACHS [facility] Protocol Lorazepam 2 mg 12/13/20 16:33 12/14/20 15:07 Lorazepam 2 Mg/Ml Vial IV 2 mg Q6H PRN Administration Agitation Metoclopramide HCl 5 mg 12/12/20 01:12 12/14/20 15:35 Metoclopramide 10 Mg/2 Ml Inj IV 5 mg Q6H PRN Administration Nausea And Vomiting Metoprolol Succinate 25 mg 12/14/20 19:12 12/15/20 08:02 Metoprolol Succinate Xl 25 Mg Tab PO Not Given BID [facility] Morphine Sulfate 4 mg 12/11/20 23:01 12/13/20 11:23 Morphine 4 Mg/1 Ml Inj IV 4 mg Q4H PRN Administration Pain , Severe (7-10) Sodium Chloride 10 ml 12/12/20 10:00 12/14/20 21:34 Sodium Chloride 0.9% 10 Ml Flush Syringe IV 10 ml BID KARINA Administration Sodium Chloride 10 ml 12/11/20 23:01 Sodium Chloride 0.9% 10 Ml Flush Syringe IV PRN PRN LINE FLUSH
--- NOTE | 2020-12-15 09:31 | Progress Note ---
Assessment and Plan Assessment and plan: 45-year-old -[place] male with significant past medical history of hypertension, congestive heart failure, GERD, end-stage renal disease on dialysis, diabetes mellitus and left below-knee amputation was brought into the emergency room by EMS on 12/11/2020 for altered mental status and elevated blood sugar. Most of the history was gotten from the ER staff as patient is unable to give any history. Family members were also not available.Upon arrival in the emergency room, patient has been intermittently awake but not able to give any history. Work-up however revealed hemoglobin of 8.3 and hematocrit of 27.2, sodium of 125, anion gap of 27 and a blood glucose of about 888. He had a lactic acidosis of 5.7. CT scan of the head shows no acute intracranial abnormality. Chest x-ray showed bilateral pneumonia. The patient was admitted with diagnosis of acute hypoxic respiratory failure, bilateral pneumonia, severe sepsis (patient meets criteria given the tachycardia, altered mentation, diagnosis of pneumonia and lactic acidosis), DKA, toxic metabolic encephalopathy, NSTEMI type II(likely related to sepsis), elevated troponins likely secondary to ESRD and ESRD on hemodialysis. The patient was started on IV antibiotics of ceftriaxone and azithromycin. Patient was noted to have bi lateral pneumonia but COVID negative. The patient was also initially started on IV insulin drip which was later weaned off and transition to long-acting insulin. ID, pulmonary, cardiology, nephrology and neurology are consulted throughout hospitalization. Acute hypoxic respiratory failure DKA. Resolved. Bilateral pneumonia. Severe sepsis. patient meets criteria given the tachycardia, altered mentation, diagnosis of pneumonia and lactic acidosis Toxic metabolic encephalopathy NSTEMI type II Elevated troponin ESRD on HD PVD s/p left BKA DM type II History of diastolic heart failure. Compensated 12/14/2020. Echocardiogram reveals left ventricular systolic function normal with an EF of 50 to 55%. Mild diastolic dysfunction with impaired relaxation. Etiology of encephalopathy secondary to toxic metabolic causes associated with pneumonia, metabolic acidosis and sepsis. Patient remains confused. CT scan of the head negative. Patient with no lateralizing signs or symptoms. Neurology following. 12/15/2020. Patient to complete empiric antibiotic course today. Follow-up chest x-ray. Blood cultures with no growth x72 hours. Hypoglycemic episode yesterday requiring amp of D50. Discontinue Lantus given the hypoglycemia. Patient likely without adequate p.o. intake. Patient still remains confused/encephalopathic. Check MRI brain. Consider Dobbhoff tube placement for nutrition. Dietitian consult. History Interval history: No new issues overnight Hospitalist Physical - Constitutional Vitals: Temp Pulse Resp BP Pulse Ox 98.5 F 98 H 20 139/79 98 12/14/20 23:18 12/14/20 23:18 12/14/20 23:18 12/14/20 23:18 12/15/20 01:55 General appearance: Present: no acute distress, obese - EENT Eyes: Present: PERRL, EOM intact ENT: hearing intact, clear oral mucosa, dentition normal - Neck Neck: Present: supple, normal ROM - Respiratory Respiratory effort: normal Respiratory: bilateral: CTA - Cardiovascular Rhythm: regular Heart Sounds: Present: S1 & S2. Absent: gallop, rub - Extremities Extremities: no ischemia, No edema, Full ROM - Abdominal General gastrointestinal: soft, non-tender, non-distended, normal bowel sounds - Integumentary Integumentary: Present: clear, warm, dry - Neurologic Neurologic: CNII-XII intact, moves all extremities HEART Score - HEART Score Troponin: Troponin T 0.210 ng/mL (0.00-0.029) H* 12/13/20 23:11 Results - Labs CBC & Chem 7: 12/14/20 08:08 12/14/20 08:08 Labs: Laboratory Last Values WBC 8.7 K/mm3 (4.5-11.0) 12/14/20 08:08 RBC 2.52 M/mm3 (3.65-5.03) L 12/14/20 08:08 Hgb 8.4 gm/dl (11.8-15.2) L 12/14/20 08:08 Hct 25.6 % (35.5-45.6) L 12/14/20 08:08 MCV 101 fl (84-94) H 12/14/20 08:08 MCH 33 pg (28-32) H 12/14/20 08:08 MCHC 33 % (32-34) 12/14/20 08:08 RDW 18.1 % (13.2-15.2) H 12/14/20 08:08 Plt Count 196 K/mm3 (140-440) 12/14/20 08:08 Lymph % (Auto) 11.5 % (13.4-35.0) L 12/11/20 21:48 [place] % (Auto) 8.9 % (0.0-7.3) H 12/11/20 21:48 Eos % (Auto) 0.2 % (0.0-4.3) 12/11/20 21:48 Baso % (Auto) 0.8 % (0.0-1.8) 12/11/20 21:48 Lymph # (Auto) 0.8 K/mm3 (1.2-5.4) L 12/11/20 21:48 [place] # (Auto) 0.6 K/mm3 (0.0-0.8) 12/11/20 21:48 Eos # (Auto) 0.0 K/mm3 (0.0-0.4) 12/11/20 21:48 Baso # (Auto) 0.1 K/mm3 (0.0-0.1) 12/11/20 21:48 Seg Neutrophils % 78.6 % (40.0-70.0) H 12/11/20 21:48 Seg Neutrophils # 5.3 K/mm3 (1.8-7.7) 12/11/20 21:48 PT 16.8 Sec. (12.2-14.9) H 12/11/20 21:48 INR 1.30 (0.87-1.13) H 12/11/20 21:48 APTT 29.7 Sec. (24.2-36.6) 12/11/20 21:48 D-Dimer 1050.73 ng/mlDDU (0-234) H 12/14/20 08:07 VBG pH 7.329 (7.320-7.420) 12/11/20 21:48 Sodium 141 mmol/L (137-145) 12/14/20 08:08 Potassium 4.5 mmol/L (3.6-5.0) 12/14/20 08:08 Chloride 103.5 mmol/L (98-107) 12/14/20 08:08 Carbon Dioxide 26 mmol/L (22-30) 12/14/20 08:08 Anion Gap 16 mmol/L 12/14/20 08:08 BUN 14 mg/dL (9-20) 12/14/20 08:08 Creatinine 5.8 mg/dL (0.8-1.3) H 12/14/20 08:08 Estimated GFR 13 ml/min 12/14/20 08:08 BUN/Creatinine Ratio 2 % 12/14/20 08:08 Glucose 151 mg/dL (75-100) H 12/14/20 08:08 POC Glucose 61 mg/dL (70-105) L 12/15/20 08:32 Lactic Acid 1.00 mmol/L (0.7-2.0) 12/13/20 23:11 Calcium 9.3 mg/dL (8.4-10.2) 12/14/20 08:08 Phosphorus 4.50 mg/dL (2.5-4.5) 12/14/20 08:08 Magnesium 1.80 mg/dL (1.7-2.3) 12/14/20 08:08 Ferritin 1368.0 ng/mL (30.0-300.0) H 12/14/20 08:07 Total Bilirubin 0.40 mg/dL (0.1-1.2) 12/14/20 08:08 AST 20 units/L (5-40) 12/14/20 08:08 ALT 5 units/L (7-56) L 12/14/20 08:08 Alkaline Phosphatase 80 units/L (35-129) 12/14/20 08:08 Ammonia 35.0 umol/L (25-60) 12/11/20 21:48 Lactate Dehydrogenase 293 units/L (91-180) H 12/14/20 08:08 Total Creatine Kinase 277 units/L (55-170) H 12/11/20 21:48 Troponin T 0.210 ng/mL (0.00-0.029) H* 12/13/20 23:11 C-Reactive Protein 5.60 mg/dL (0.00-1.30) H 12/14/20 08:08 Total Protein 7.8 g/dL (6.3-8.2) 12/14/20 08:08 Albumin 3.0 g/dL (3.9-5) L 12/14/20 08:08 Albumin/Globulin Ratio 0.6 % 12/14/20 08:08 Triglycerides 87 mg/dL (2-149) 12/12/20 13:49 Cholesterol 65 mg/dL (50-199) 12/12/20 13:49 LDL Cholesterol Direct 24 mg/dL (50-130) L 12/12/20 13:49 HDL Cholesterol 28 mg/dL (40-59) L 12/12/20 13:49 Cholesterol/HDL Ratio 2.32 % 12/12/20 13:49 Procalcitonin 4.71 ng/mL (<0.15) 12/14/20 08:07 TSH 2.520 mlU/mL (0.270-4.200) 12/11/20 21:48 Salicylates < 0.3 mg/dL (2.8-20.0) L 12/11/20 21:48 Acetaminophen 5.0 ug/mL (10.0-30.0) L 12/11/20 21:48 Plasma/Serum Alcohol < 0.01 % (0-0.07) 12/11/20 21:48 Coronavirus (PCR) Negative (Negative) 12/14/20 Unknown Hepatitis A IgM Ab Non-reactive (NonReactive) 12/12/20 13:49 Hep Bs Antigen Nonreactive (Negative) 12/12/20 13:49 Hep B Core IgM Ab Non-reactive (NonReactive) 12/12/20 13:49 Hepatitis C Antibody Non-reactive (NonReactive) 12/12/20 13:49 Microbiology: Microbiology 12/11/20 21:48 Peripheral/Venous Blood Culture - Preliminary NO GROWTH AFTER 72 HOURS 12/11/20 21:54 Peripheral/Venous Blood Culture - Preliminary NO GROWTH AFTER 72 HOURS Active Medications - Current Medications Current Medications: Generic Name Dose Route Start Last Admin Trade Name Freq PRN Reason Stop Dose Admin Acetaminophen 650 mg 12/11/20 23:01 Acetaminophen 325 Mg/10.15 Ml Oral Liqd Unit Dose FEEDTUBE Q6H PRN Pain MILD(1-3)/Fever >100.5/GILLIAM Aspirin 81 mg 12/15/20 10:00 Aspirin 81 Mg Tab Chew PO QDAY KARINA Atorvastatin Calcium 20 mg 12/14/20 22:00 12/14/20 21:33 Atorvastatin 20 Mg Tab PO 20 mg QHS KARINA Administration Dextrose 50 ml 12/13/20 10:47 12/14/20 20:48 Dextrose 50% In Water (25gm) 50 Ml Syringe IV 15 ml Q30MIN PRN Administration Hypoglycemia Protocol Docusate Sodium 100 mg 12/13/20 22:00 12/14/20 21:32 Docusate Sodium 100 Mg Cap PO 100 mg BID KARINA Administration Heparin Sodium (Porcine) 5,000 unit 12/12/20 06:00 12/15/20 05:30 Heparin 5,000 Unit/1 Ml Vial SUB-Q 5,000 unit Q8HR KARINA Administration Ceftriaxone Sodium 2 gm in 100 mls @ 200 mls/hr 12/12/20 22:00 12/14/20 21:32 Rocephin/Ns 2 Gm/100 Ml IV 200 mls/hr Q24H KARINA Administration Protocol Azithromycin 500 mg in 250 mls @ 250 mls/hr 12/12/20 22:00 12/14/20 21:32 Zithromax/Ns IV 250 mls/hr Q24H KARINA Administration Sodium Chloride 100 mls @ 999 mls/hr 12/12/20 08:17 Nacl 0.9% IV BREANA PRN Hypotension Insulin Glargine 15 units 12/13/20 22:00 12/14/20 21:34 Insulin Glargine 100 Units/Ml SUB-Q Not Given QHS [facility] Insulin Human Regular 0 units 12/13/20 11:30 12/14/20 21:33 Insulin Regular, Human 100 Units/1 Ml SUB-Q Not Given ACHS [facility] Protocol Lorazepam 2 mg 12/13/20 16:33 12/14/20 15:07 Lorazepam 2 Mg/Ml Vial IV 2 mg Q6H PRN Administration Agitation Metoclopramide HCl 5 mg 12/12/20 01:12 12/14/20 15:35 Metoclopramide 10 Mg/2 Ml Inj IV 5 mg Q6H PRN Administration Nausea And Vomiting Metoprolol Succinate 25 mg 12/14/20 19:12 12/15/20 08:02 Metoprolol Succinate Xl 25 Mg Tab PO Not Given BID [facility] Morphine Sulfate 4 mg 12/11/20 23:01 12/13/20 11:23 Morphine 4 Mg/1 Ml Inj IV 4 mg Q4H PRN Administration Pain , Severe (7-10) Sodium Chloride 10 ml 12/12/20 10:00 12/14/20 21:34 Sodium Chloride 0.9% 10 Ml Flush Syringe IV 10 ml BID KARINA Administration Sodium Chloride 10 ml 12/11/20 23:01 Sodium Chloride 0.9% 10 Ml Flush Syringe IV PRN PRN LINE FLUSH Nutrition/Malnutrition Assess - Dietary Evaluation Nutrition/Malnutrition Findings: Nutrition Notes Start: 12/14/20 13:04 Freq: Status: Active Protocol: Document 12/14/20 13:04 ENRIQUE (Rec: 12/14/20 13:05 [id number]) Nutrition Notes Need for Assessment generated from: Education Initial or Follow up Brief Note Subjective/Other Information RD consulted for Diet education. Unable to reach pt after multiple attempts via telephone. Noted that pt was agitated yesterday. Nutrition Intervention Follow-Up By: 12/15/20 Additional Comments Diet education
[2020-12-15] MEDS: INSULIN REGULAR, HUMAN 100 UNITS/1 ML SUB-Q SCH (09:43)
[2020-12-15] MEDS: DOCUSATE SODIUM 100 MG CAP PO SCH (09:45)
[2020-12-15] MEDS ORDERED: ASPIRIN 81 MG TAB CHEW PO SCH (10:00)
--- NOTE | 2020-12-15 10:27 | Progress Note ---
Assessment and Plan #Assessment and Plan this is 45 ys old male with hx of ESRD and DM presented with increase lethargy and confusion -finding on exam is remarkable for slight left facial droop and possibly right side weakness CVA can not be excluded - lethargy with in and out of sleep ? toximetabloic and or infection +++ R/O seizure -MRI brain is pending -Exam today with no focal weakness -- confusion and agitation is better -EEG showed mild diffuse slowing # Hyperosmolar hyperglycemic state (HHS) -Patient admitted and placed on insulin drip and IV fluid. We will monitor Accu-Cheks closely. # Acute encephalopathy -Possibly secondary to underlying pneumonia and on the metabolic acidosis. # Pneumonia -Patient placed on empiric IV antibiotics. We also placed on isolation precautions to rule out COVID-19 . Consult placed to infectious disease for evaluation. # End stage renal disease -On Dialysis today # Macrocytic anemia -Possibly chronic. Will monitor CBC. # DVT prophylaxis -Patient placed on subcutaneous heparin. # Full code status -Patient is full code. PLAN 1- Brain MRI r/o CVA ,Add ASA 325 mg daily 2- EEG noted 3- Treat underlying infection 4- Treat underlying suger and electrolytes abn--- improved. 5- Hemodialysis 6- AVOID sedative narcotic and pain medication which might be contributing factor for change in mentation 7- Avoid restrain if possible it add to his agitation will follow Subjective Date of service: 12/15/20 Principal diagnosis: hyperosmolar DM; Acute toxic metabolic encephalopathy; ESRD; HTN; CHF; GERD Interval history: doing better today more alsert interactive slightly agitated possibly from the restrain EEG is remarkable for slight slowing back ground MRI brain is pending Objective - Vital Sign Vital Signs - 12hr 12/14/20 12/15/20 23:18 01:55 Temperature 98.5 F Pulse Rate 98 H Respiratory 20 Rate Blood Pressure 139/79 O2 Sat by Pulse 100 98 Oximetry - General Apperance Constitutional: uncomfortable - EENT EENT: PERRL, mucous membranes moist - Respiratory Respiratory: chest non-tender, lungs clear, rhonchi - Cardiovascular Cardiovascular: regular rate, normal S1, normal S2 Extremities: no peripheral edema bilat, no clubbing, cyanosis, other (left BKA) - Gastrointestinal Gastrointestinal: normoactive bowel sounds - Integumentary Integumentary: normal - Neurologic Cranial nerve examination: PERRL, EOMI, intact Detailed motor examination: grossly full strength in - Laboratory Findings CBC and BMP: 12/14/20 08:08 12/14/20 08:08 Abnormal Lab Findings: Abnormal Labs 12/11/20 12/11/20 12/11/20 21:48 21:48 21:48 RBC 2.46 L Hgb 8.3 L Hct 27.2 L MCV 111 H MCH 34 H MCHC 30 L RDW 18.2 H Lymph % (Auto) 11.5 L [place] % (Auto) 8.9 H Lymph # (Auto) 0.8 L Seg Neutrophils % 78.6 H PT 16.8 H INR 1.30 H D-Dimer Sodium 125 L Chloride 87.0 L Carbon Dioxide 16 L Creatinine 6.4 H Glucose 888 H* POC Glucose Lactic Acid Ferritin ALT 6 L Lactate Dehydrogenase Total Creatine Kinase 277 H Troponin T C-Reactive Protein Total Protein 8.8 H Albumin 3.3 L LDL Cholesterol Direct HDL Cholesterol Salicylates Acetaminophen 12/11/20 12/11/20 12/11/20 21:48 21:48 21:48 RBC Hgb Hct MCV MCH MCHC RDW Lymph % (Auto) [place] % (Auto) Lymph # (Auto) Seg Neutrophils % PT INR D-Dimer Sodium Chloride Carbon Dioxide Creatinine Glucose POC Glucose Lactic Acid 5.70 H* Ferritin ALT Lactate Dehydrogenase Total Creatine Kinase Troponin T C-Reactive Protein Total Protein Albumin LDL Cholesterol Direct HDL Cholesterol Salicylates < 0.3 L Acetaminophen 5.0 L 12/12/20 12/12/20 12/12/20 00:06 01:24 01:38 RBC Hgb Hct MCV MCH MCHC RDW Lymph % (Auto) [place] % (Auto) Lymph # (Auto) Seg Neutrophils % PT INR D-Dimer Sodium Chloride Carbon Dioxide Creatinine Glucose POC Glucose > 600 H > 600 H Lactic Acid 5.70 H* Ferritin ALT Lactate Dehydrogenase Total Creatine Kinase Troponin T C-Reactive Protein Total Protein Albumin LDL Cholesterol Direct HDL Cholesterol Salicylates Acetaminophen 12/12/20 12/12/20 12/12/20 01:38 03:43 05:02 RBC Hgb Hct MCV MCH MCHC RDW Lymph % (Auto) [place] % (Auto) Lymph # (Auto) Seg Neutrophils % PT INR D-Dimer Sodium 129 L Chloride 91.3 L Carbon Dioxide 20 L Creatinine 6.7 H Glucose 723 H* POC Glucose 571 H 477 H Lactic Acid Ferritin ALT Lactate Dehydrogenase Total Creatine Kinase Troponin T C-Reactive Protein Total Protein Albumin LDL Cholesterol Direct HDL Cholesterol Salicylates Acetaminophen 12/12/20 12/12/20 12/12/20 05:55 05:55 05:58 RBC Hgb Hct MCV MCH MCHC RDW Lymph % (Auto) [place] % (Auto) Lymph # (Auto) Seg Neutrophils % PT INR D-Dimer Sodium 134 L Chloride 95.1 L Carbon Dioxide 21 L Creatinine 6.5 H Glucose 417 H POC Glucose 367 H Lactic Acid 5.20 H* Ferritin ALT Lactate Dehydrogenase Total Creatine Kinase Troponin T C-Reactive Protein Total Protein Albumin LDL Cholesterol Direct HDL Cholesterol Salicylates Acetaminophen 12/12/20 12/12/20 12/12/20 07:05 08:30 10:39 RBC Hgb Hct MCV MCH MCHC RDW Lymph % (Auto) [place] % (Auto) Lymph # (Auto) Seg Neutrophils % PT INR D-Dimer Sodium Chloride Carbon Dioxide Creatinine Glucose POC Glucose 339 H 252 H 181 H Lactic Acid Ferritin ALT Lactate Dehydrogenase Total Creatine Kinase Troponin T C-Reactive Protein Total Protein Albumin LDL Cholesterol Direct HDL Cholesterol Salicylates Acetaminophen 12/12/20 12/12/20 12/12/20 12:03 13:49 13:49 RBC Hgb Hct MCV MCH MCHC RDW Lymph % (Auto) [place] % (Auto) Lymph # (Auto) Seg Neutrophils % PT INR D-Dimer Sodium 135 L Chloride Carbon Dioxide Creatinine 7.0 H Glucose 65 L POC Glucose 112 H Lactic Acid 3.10 H* Ferritin ALT Lactate Dehydrogenase Total Creatine Kinase Troponin T C-Reactive Protein Total Protein Albumin LDL Cholesterol Direct HDL Cholesterol Salicylates Acetaminophen 12/12/20 12/13/20 12/13/20 13:49 00:21 05:58 RBC Hgb Hct MCV MCH MCHC RDW Lymph % (Auto) [place] % (Auto) Lymph # (Auto) Seg Neutrophils % PT INR D-Dimer Sodium Chloride Carbon Dioxide Creatinine Glucose POC Glucose 297 H Lactic Acid Ferritin ALT Lactate Dehydrogenase Total Creatine Kinase Troponin T 0.236 H* 0.215 H* C-Reactive Protein Total Protein Albumin LDL Cholesterol Direct 24 L HDL Cholesterol 28 L Salicylates Acetaminophen 12/13/20 12/13/20 12/13/20 05:58 05:58 05:58 RBC 2.47 L Hgb 8.3 L Hct 25.2 L MCV 102 H MCH 33 H MCHC RDW 17.8 H Lymph % (Auto) [place] % (Auto) Lymph # (Auto) Seg Neutrophils % PT INR D-Dimer Sodium Chloride 94.9 L Carbon Dioxide Creatinine 5.0 H Glucose 406 H POC Glucose Lactic Acid 2.60 H* Ferritin ALT 6 L Lactate Dehydrogenase Total Creatine Kinase Troponin T C-Reactive Protein Total Protein Albumin 3.2 L LDL Cholesterol Direct HDL Cholesterol Salicylates Acetaminophen 12/13/20 12/13/20 12/13/20 12:08 16:02 23:11 RBC Hgb Hct MCV MCH MCHC RDW Lymph % (Auto) [place] % (Auto) Lymph # (Auto) Seg Neutrophils % PT INR D-Dimer Sodium Chloride Carbon Dioxide Creatinine Glucose POC Glucose 184 H 143 H Lactic Acid Ferritin ALT Lactate Dehydrogenase Total Creatine Kinase Troponin T 0.210 H* C-Reactive Protein Total Protein Albumin LDL Cholesterol Direct HDL Cholesterol Salicylates Acetaminophen 12/13/20 12/14/20 12/14/20 23:59 07:28 08:07 RBC Hgb Hct MCV MCH MCHC RDW Lymph % (Auto) [place] % (Auto) Lymph # (Auto) Seg Neutrophils % PT INR D-Dimer 1050.73 H Sodium Chloride Carbon Dioxide Creatinine Glucose POC Glucose 203 H 139 H Lactic Acid Ferritin ALT Lactate Dehydrogenase Total Creatine Kinase Troponin T C-Reactive Protein Total Protein Albumin LDL Cholesterol Direct HDL Cholesterol Salicylates Acetaminophen 12/14/20 12/14/20 12/14/20 08:07 08:08 08:08 RBC 2.52 L Hgb 8.4 L Hct 25.6 L MCV 101 H MCH 33 H MCHC RDW 18.1 H Lymph % (Auto) [place] % (Auto) Lymph # (Auto) Seg Neutrophils % PT INR D-Dimer Sodium Chloride Carbon Dioxide Creatinine 5.8 H Glucose 151 H POC Glucose Lactic Acid Ferritin 1368.0 H ALT 5 L Lactate Dehydrogenase Total Creatine Kinase Troponin T C-Reactive Protein Total Protein Albumin 3.0 L LDL Cholesterol Direct HDL Cholesterol Salicylates Acetaminophen 12/14/20 12/14/20 12/14/20 08:08 18:03 18:17 RBC Hgb Hct MCV MCH MCHC RDW Lymph % (Auto) [place] % (Auto) Lymph # (Auto) Seg Neutrophils % PT INR D-Dimer Sodium Chloride Carbon Dioxide Creatinine Glucose POC Glucose 23 L 137 H Lactic Acid Ferritin ALT Lactate Dehydrogenase 293 H Total Creatine Kinase Troponin T C-Reactive Protein 5.60 H Total Protein Albumin LDL Cholesterol Direct HDL Cholesterol Salicylates Acetaminophen 12/14/20 12/15/20 19:39 08:32 RBC Hgb Hct MCV MCH MCHC RDW Lymph % (Auto) [place] % (Auto) Lymph # (Auto) Seg Neutrophils % PT INR D-Dimer Sodium Chloride Carbon Dioxide Creatinine Glucose POC Glucose 65 L 61 L Lactic Acid Ferritin ALT Lactate Dehydrogenase Total Creatine Kinase Troponin T C-Reactive Protein Total Protein Albumin LDL Cholesterol Direct HDL Cholesterol Salicylates Acetaminophen
--- NOTE | 2020-12-15 10:46 | Discharge Summary ---
Providers - Providers Date of Admission: 12/11/20 22:36 Date of discharge: 12/15/20 Attending physician: FLORECITA ACKERMAN 12/11/20 22:30 Consult to Physician [CONS] Urgent Comment: Dr. Marie spoke with Dr. Gusman @ [id number] Consulting Provider: VANE GUSMAN Physician Instructions: Reason For Exam: esrd 12/11/20 22:31 Consult to Physician [CONS] Urgent Comment: Dr. Marie spoke with Dr. Ortiz @ [phone] Consulting Provider: DAREIN ORTIZ Physician Instructions: Reason For Exam: Hyperosmolar hyperglycemia 12/11/20 23:02 Consult to Dietitian/Nutrition [CONS] Routine Physician Instructions: Reason For Exam: Reason for Consult: Diet education 12/12/20 04:13 Consult to Physician [CONS] Routine Comment: Consulting Provider: JOANNA MUELLER Physician Instructions: Reason For Exam: Pneumonia. PUI 12/12/20 15:11 Consult to Cardiology [CONS] Stat Consulting Provider: CHARITY ALCAZAR Reason For Exam: Arrythmia 12/13/20 16:34 Consult to Dietitian/Nutrition [CONS] Routine Physician Instructions: Reason For Exam: dm education Reason for Consult: Diet education 12/14/20 07:34 Consult to Physician [CONS] Routine Comment: Consulting Provider: NATE JOLLY Physician Instructions: Reason For Exam: encephalopathy 12/15/20 09:30 Consult to Dietitian/Nutrition [CONS] Routine Physician Instructions: Reason For Exam: Reason for Consult: Write/Manage Tube Feeding Primary care physician: DECK ENGINE OPERATOR Hospitalization Reason for admission: DKA, AMS Condition: Critical Hospital course: 45-year-old -[place] male with significant past medical history of hypertension, congestive heart failure, GERD, end-stage renal disease on dialysis, diabetes mellitus and left below-knee amputation was brought into the emergency room by EMS on 12/11/2020 for altered mental status and elevated blood sugar. Most of the history was gotten from the ER staff as patient is unable to give any history. Family members were also not available.Upon arrival in the emergency room, patient has been intermittently awake but not able to give any history. Work-up however revealed hemoglobin of 8.3 and hematocrit of 27.2, sodium of 125, anion gap of 27 and a blood glucose of about 888. He had a lactic acidosis of 5.7. CT scan of the head shows no acute intracranial abnormality. Chest x-ray showed bilateral pneumonia. The patient was admitted with diagnosis of acute hypoxic respiratory failure, bilateral pneumonia, severe sepsis (patient meets criteria given the tachycardia, altered mentation, diagnosis of pneumonia and lactic acidosis), DKA, toxic metabolic encephalopathy, NSTEMI type II(likely related to sepsis), elevated troponins likely secondary to ESRD and ESRD on hemodialysis. The patient was started on IV antibiotics of ceftriaxone and azithromycin. Patient was noted to have bilateral pneumonia but COVID negative. The patient was also initially started on IV insulin drip which was later weaned off and transition to long-acting insulin. ID, pulmonary, cardiology, nephrology and neurology are consulted throughout hospitalization. Acute hypoxic respiratory failure DKA. Resolved. Bilateral pneumonia. Severe sepsis. patient meets criteria given the tachycardia, altered mentation, diagnosis of pneumonia and lactic acidosis Toxic metabolic encephalopathy NSTEMI type II Elevated troponin ESRD on HD PVD s/p left BKA DM type II History of diastolic heart failure. Compensated 12/14/2020. Echocardiogram reveals left ventricular systolic function normal with an EF of 50 to 55%. Mild diastolic dysfunction with impaired relaxation. Etiology of encephalopathy secondary to toxic metabolic causes associated with pneumonia, metabolic acidosis and sepsis. Patient remains confused. CT scan of the head negative. Patient with no lateralizing signs or symptoms. Neurology following. 12/15/2020. Patient to completed empiric antibiotic course today. Follow-up chest x-ray. Blood cultures with no growth x72 hours. Hypoglycemic episode yesterday requiring amp of D50. Discontinued Lantus given the hypoglycemia. The patient's altered mentation resolved dramatically today. Patient was at his baseline and requesting to be discharged home. Patient was alert and oriented x3 without any complaints. Elevated troponin is likely related to sepsis and ESRD. Ischemic evaluation can be done as an outpatient. The patient did not want any discharge medications and normally follows up at the [facility] for which she will follow up after discharge. Dedicated discharge time 35 minutes Disposition: 30 STILL A PATIENT Final Discharge Diagnosis (Prints w/discharge instructions): acute hypoxic respiratory failure, bilateral pneumonia, severe sepsis (patient meets criteria given the tachycardia, altered mentation, diagnosis of pneumonia and lactic acidosis), DKA, toxic metabolic encephalopathy, NSTEMI type II(likely related to sepsis), elevated troponins likely secondary to ESRD and ESRD on hemodialysis. Core Measure Documentation - Palliative Care Palliative Care/ Comfort Measures: Not Applicable - Core Measures Any of the following diagnoses?: none Exam - Constitutional Vitals: Temp Pulse Resp BP Pulse Ox 98.5 F 98 H 20 139/79 98 12/14/20 23:18 12/14/20 23:18 12/14/20 23:18 12/14/20 23:18 12/15/20 01:55 General appearance: Present: no acute distress, well-nourished - EENT Eyes: Present: PERRL ENT: hearing intact, clear oral mucosa - Neck Neck: Present: supple, normal ROM - Respiratory Respiratory effort: normal Respiratory: bilateral: CTA - Cardiovascular Heart Sounds: Present: S1 & S2. Absent: rub, click - Extremities Extremities: pulses symmetrical, No edema, abnormal (BKA) Peripheral Pulses: within normal limits - Abdominal General gastrointestinal: Present: soft, non-tender, non-distended, normal bowel sounds Male genitourinary: Present: normal - Integumentary Integumentary: Present: clear, warm, dry - Musculoskeletal Musculoskeletal: gait normal, strength equal bilaterally - Psychiatric Psychiatric: appropriate mood/affect, intact judgment & insight - Neurologic Neurologic: CNII-XII intact, moves all extremities Plan Activity: advance as tolerated Weight Bearing Status: Weight Bear as Tolerated Diet: diabetic, renal Follow up with: PRIMARY CARE, [Primary Care Provider] - 3-5 Days TERESA SQUIRES MD [Staff Physician] - 7 Days NATE JOLLY MD [Staff Physician] - 7 Days DARIEN ORTIZ MD [Staff Physician] - 7 Days JOANNA MUELLER MD [Staff Physician] - 7 Days
--- NOTE | 2020-12-15 12:30 | Progress Note ---
Assessment and Plan Diabetic ketoacidosis/hyperosmolar nonketotic coma Acute toxic metabolic encephalopathy End-stage renal disease, on dialysis History of hypertension Congestive heart failure Gastroesophageal reflux disease - no new issues today, continuye care as below; - prn supplemental oxygen to keep O2 sats > 90% - prn bronchodilators (RYANNE) with pulmonary hygiene per RT - continue HD/UF per nephrology prescription for toxin and volume clearance - continue to avoid nephrotoxins, renally dose all medications - complete empiric AB's per ID recommendations - mobility protocols to prevent pressure ulcers - PT/OT as tolerated - Wound care per RN/WCT - continue accuchecks with glycemic control per SSI for target blood glucose < 180 mg/dL - home oxygen evaluation at discharge - GI & VTE prophylaxis - Flu & pneumovax per protocol - prn analgesia per pain score - continue other care per attending / other consultants - discharge planning OK pulmonary-leon ... re-evaluate in am & prn Subjective Date of service: 12/15/20 Principal diagnosis: DKA; Acute toxic metabolic encephalopathy; ESRD; HTN; CHF; GERD Interval history: Patient is seen today for: DKA; Acute toxic metabolic encephalopathy; ESRD; HTN; CHF; GERD Seen and examined at bedside; 24hour events reviewed; nursing and respiratory care staff consulted; no adverse overnight events reported to me; resting peacefully in bed; No N/V/F/C Objective Vital Signs - 12hr 12/15/20 12/15/20 01:55 08:25 Temperature 97.8 F Respiratory 18 Rate Blood Pressure 189/92 O2 Sat by Pulse 98 Oximetry Constitutional: no acute distress Eyes: non-icteric ENT: oropharynx moist Neck: supple, no lymphadenopathy Effort: normal Ascultation: Bilateral: clear Percussion: Bilateral: not dull Cardiovascular: regular rate and rhythm Gastrointestinal: normoactive bowel sounds Integumentary: normal Extremities: pulses normal, edema (trace to 1+) Neurologic: pupils equal and round, unable to assess, other (unable to assess as patient is in deep sleep) Psychiatric: other (unable to assess as patient is in deep sleep) CBC and BMP: 12/14/20 08:08 12/14/20 08:08 ABG, PT/INR, D-dimer: PT/INR, D-dimer PT 16.8 Sec. (12.2-14.9) H 12/11/20 21:48 INR 1.30 (0.87-1.13) H 12/11/20 21:48 D-Dimer 1050.73 ng/mlDDU (0-234) H 12/14/20 08:07 Abnormal lab findings: Abnormal Labs 12/11/20 12/11/20 12/11/20 21:48 21:48 21:48 RBC 2.46 L Hgb 8.3 L Hct 27.2 L MCV 111 H MCH 34 H MCHC 30 L RDW 18.2 H Lymph % (Auto) 11.5 L [place] % (Auto) 8.9 H Lymph # (Auto) 0.8 L Seg Neutrophils % 78.6 H PT 16.8 H INR 1.30 H D-Dimer Sodium 125 L Chloride 87.0 L Carbon Dioxide 16 L Creatinine 6.4 H Glucose 888 H* POC Glucose Lactic Acid Ferritin ALT 6 L Lactate Dehydrogenase Total Creatine Kinase 277 H Troponin T C-Reactive Protein Total Protein 8.8 H Albumin 3.3 L LDL Cholesterol Direct HDL Cholesterol Salicylates Acetaminophen 12/11/20 12/11/20 12/11/20 21:48 21:48 21:48 RBC Hgb Hct MCV MCH MCHC RDW Lymph % (Auto) [place] % (Auto) Lymph # (Auto) Seg Neutrophils % PT INR D-Dimer Sodium Chloride Carbon Dioxide Creatinine Glucose POC Glucose Lactic Acid 5.70 H* Ferritin ALT Lactate Dehydrogenase Total Creatine Kinase Troponin T C-Reactive Protein Total Protein Albumin LDL Cholesterol Direct HDL Cholesterol Salicylates < 0.3 L Acetaminophen 5.0 L 12/12/20 12/12/20 12/12/20 00:06 01:24 01:38 RBC Hgb Hct MCV MCH MCHC RDW Lymph % (Auto) [place] % (Auto) Lymph # (Auto) Seg Neutrophils % PT INR D-Dimer Sodium Chloride Carbon Dioxide Creatinine Glucose POC Glucose > 600 H > 600 H Lactic Acid 5.70 H* Ferritin ALT Lactate Dehydrogenase Total Creatine Kinase Troponin T C-Reactive Protein Total Protein Albumin LDL Cholesterol Direct HDL Cholesterol Salicylates Acetaminophen 12/12/20 12/12/20 12/12/20 01:38 03:43 05:02 RBC Hgb Hct MCV MCH MCHC RDW Lymph % (Auto) [place] % (Auto) Lymph # (Auto) Seg Neutrophils % PT INR D-Dimer Sodium 129 L Chloride 91.3 L Carbon Dioxide 20 L Creatinine 6.7 H Glucose 723 H* POC Glucose 571 H 477 H Lactic Acid Ferritin ALT Lactate Dehydrogenase Total Creatine Kinase Troponin T C-Reactive Protein Total Protein Albumin LDL Cholesterol Direct HDL Cholesterol Salicylates Acetaminophen 12/12/20 12/12/20 12/12/20 05:55 05:55 05:58 RBC Hgb Hct MCV MCH MCHC RDW Lymph % (Auto) [place] % (Auto) Lymph # (Auto) Seg Neutrophils % PT INR D-Dimer Sodium 134 L Chloride 95.1 L Carbon Dioxide 21 L Creatinine 6.5 H Glucose 417 H POC Glucose 367 H Lactic Acid 5.20 H* Ferritin ALT Lactate Dehydrogenase Total Creatine Kinase Troponin T C-Reactive Protein Total Protein Albumin LDL Cholesterol Direct HDL Cholesterol Salicylates Acetaminophen 12/12/20 12/12/20 12/12/20 07:05 08:30 10:39 RBC Hgb Hct MCV MCH MCHC RDW Lymph % (Auto) [place] % (Auto) Lymph # (Auto) Seg Neutrophils % PT INR D-Dimer Sodium Chloride Carbon Dioxide Creatinine Glucose POC Glucose 339 H 252 H 181 H Lactic Acid Ferritin ALT Lactate Dehydrogenase Total Creatine Kinase Troponin T C-Reactive Protein Total Protein Albumin LDL Cholesterol Direct HDL Cholesterol Salicylates Acetaminophen 12/12/20 12/12/20 12/12/20 12:03 13:49 13:49 RBC Hgb Hct MCV MCH MCHC RDW Lymph % (Auto) [place] % (Auto) Lymph # (Auto) Seg Neutrophils % PT INR D-Dimer Sodium 135 L Chloride Carbon Dioxide Creatinine 7.0 H Glucose 65 L POC Glucose 112 H Lactic Acid 3.10 H* Ferritin ALT Lactate Dehydrogenase Total Creatine Kinase Troponin T C-Reactive Protein Total Protein Albumin LDL Cholesterol Direct HDL Cholesterol Salicylates Acetaminophen 12/12/20 12/13/20 12/13/20 13:49 00:21 05:58 RBC Hgb Hct MCV MCH MCHC RDW Lymph % (Auto) [place] % (Auto) Lymph # (Auto) Seg Neutrophils % PT INR D-Dimer Sodium Chloride Carbon Dioxide Creatinine Glucose POC Glucose 297 H Lactic Acid Ferritin ALT Lactate Dehydrogenase Total Creatine Kinase Troponin T 0.236 H* 0.215 H* C-Reactive Protein Total Protein Albumin LDL Cholesterol Direct 24 L HDL Cholesterol 28 L Salicylates Acetaminophen 12/13/20 12/13/20 12/13/20 05:58 05:58 05:58 RBC 2.47 L Hgb 8.3 L Hct 25.2 L MCV 102 H MCH 33 H MCHC RDW 17.8 H Lymph % (Auto) [place] % (Auto) Lymph # (Auto) Seg Neutrophils % PT INR D-Dimer Sodium Chloride 94.9 L Carbon Dioxide Creatinine 5.0 H Glucose 406 H POC Glucose Lactic Acid 2.60 H* Ferritin ALT 6 L Lactate Dehydrogenase Total Creatine Kinase Troponin T C-Reactive Protein Total Protein Albumin 3.2 L LDL Cholesterol Direct HDL Cholesterol Salicylates Acetaminophen 12/13/20 12/13/20 12/13/20 12:08 16:02 23:11 RBC Hgb Hct MCV MCH MCHC RDW Lymph % (Auto) [place] % (Auto) Lymph # (Auto) Seg Neutrophils % PT INR D-Dimer Sodium Chloride Carbon Dioxide Creatinine Glucose POC Glucose 184 H 143 H Lactic Acid Ferritin ALT Lactate Dehydrogenase Total Creatine Kinase Troponin T 0.210 H* C-Reactive Protein Total Protein Albumin LDL Cholesterol Direct HDL Cholesterol Salicylates Acetaminophen 12/13/20 12/14/20 12/14/20 23:59 07:28 08:07 RBC Hgb Hct MCV MCH MCHC RDW Lymph % (Auto) [place] % (Auto) Lymph # (Auto) Seg Neutrophils % PT INR D-Dimer 1050.73 H Sodium Chloride Carbon Dioxide Creatinine Glucose POC Glucose 203 H 139 H Lactic Acid Ferritin ALT Lactate Dehydrogenase Total Creatine Kinase Troponin T C-Reactive Protein Total Protein Albumin LDL Cholesterol Direct HDL Cholesterol Salicylates Acetaminophen 12/14/20 12/14/20 12/14/20 08:07 08:08 08:08 RBC 2.52 L Hgb 8.4 L Hct 25.6 L MCV 101 H MCH 33 H MCHC RDW 18.1 H Lymph % (Auto) [place] % (Auto) Lymph # (Auto) Seg Neutrophils % PT INR D-Dimer Sodium Chloride Carbon Dioxide Creatinine 5.8 H Glucose 151 H POC Glucose Lactic Acid Ferritin 1368.0 H ALT 5 L Lactate Dehydrogenase Total Creatine Kinase Troponin T C-Reactive Protein Total Protein Albumin 3.0 L LDL Cholesterol Direct HDL Cholesterol Salicylates Acetaminophen 12/14/20 12/14/20 12/14/20 08:08 18:03 18:17 RBC Hgb Hct MCV MCH MCHC RDW Lymph % (Auto) [place] % (Auto) Lymph # (Auto) Seg Neutrophils % PT INR D-Dimer Sodium Chloride Carbon Dioxide Creatinine Glucose POC Glucose 23 L 137 H Lactic Acid Ferritin ALT Lactate Dehydrogenase 293 H Total Creatine Kinase Troponin T C-Reactive Protein 5.60 H Total Protein Albumin LDL Cholesterol Direct HDL Cholesterol Salicylates Acetaminophen 12/14/20 12/15/20 12/15/20 19:39 08:32 11:35 RBC Hgb Hct MCV MCH MCHC RDW Lymph % (Auto) [place] % (Auto) Lymph # (Auto) Seg Neutrophils % PT INR D-Dimer Sodium Chloride Carbon Dioxide Creatinine Glucose POC Glucose 65 L 61 L 69 L Lactic Acid Ferritin ALT Lactate Dehydrogenase Total Creatine Kinase Troponin T C-Reactive Protein Total Protein Albumin LDL Cholesterol Direct HDL Cholesterol Salicylates Acetaminophen Allied health notes reviewed: nursing
[2020-12-15 13:50] VITALS: BP 192/96
--- NOTE | 2020-12-15 18:18 | Progress Note ---
Assessment and Plan Volume optimization via HD. Plan for ischemic eval when clinically stable. May be done as an outpatient. Continue beta som as tolerated. Nothing further to add from a Cardiology perspective at this time. Will see on an as-needed basis. Pt seen in conjunction with Dr. Allen, who agrees with the assessment and plan of care. - Patient Problems (1) Acute encephalopathy Current Visit: Yes Status: Acute (2) Hyperosmolar hyperglycemic state (HHS) Current Visit: Yes Status: Acute (3) Pneumonia Current Visit: Yes Status: Acute (4) NSTEMI (non-ST elevated myocardial infarction) Current Visit: Yes Status: Acute Plan to address problem: Type 2 (5) Severe pulmonary hypertension Current Visit: Yes Status: Chronic (6) ESRD (end stage renal disease) on dialysis Current Visit: Yes Status: Chronic (7) Anemia Current Visit: Yes Status: Chronic (8) HTN (hypertension) Current Visit: Yes Status: Chronic Qualifiers: Hypertension type: primary hypertension Qualified Code(s): I10 - Essential (primary) hypertension (9) Type 2 diabetes mellitus with diabetic chronic kidney disease Current Visit: Yes Status: Chronic Subjective Date of service: 12/15/20 Principal diagnosis: NSTEMI Type 2 Interval history: Alert upon assessment. No complaints. Tele reviewed - SR 90s, no events. Objective Last Vital Signs Temp 97.9 F 12/15/20 11:36 Pulse 93 H 12/15/20 11:36 Resp 18 12/15/20 11:36 BP 192/96 12/15/20 11:36 Pulse Ox 96 12/15/20 11:36 - Physical Examination General: Other (agitated) HEENT: Positive: Normocephaly Neck: Positive: neck supple, trachea midline Cardiac: Positive: Reg Rate and Rhythm, S1/S2 Lungs: Positive: clear to auscultation Neuro: Positive: Other (agitated) Abdomen: Positive: Soft. Negative: Tender Skin: Negative: Rash Musculoskeletal: No Pain Extremities: Present: lower extr. pulses, edema, Cool - Imaging and Cardiology EKG: report reviewed, image reviewed Echo: report reviewed (12/12/2020 - EF 50-55%, mild LVH, RV mildly dilated & hypokinetic, mod-severe TR, mod-severe pulm HTN with RVSP 87mmHg) - Telemetry EKG Rhythm: Sinus Rhythm - EKG Sinus rhythms and dysrhythmias: sinus rhythm - Allied health notes Allied health notes reviewed: nursing
[2020-12-15] MEDS ORDERED: AZITHROMYCIN 250 MG TAB PO SCH (22:00)
== END 2020-12-15 17:00 | disposition home health service (06) | DRG 871 ==
LOC: EDSEX → ED 15:11 → CC1 22:36 → 4A 12-13 16:01
PROVIDERS: ADMIT Internal Medicine Geriatric Medicine; ATTEND Hospitalist
PROC: 5A1D70Z Performance of Urinary Filtration, Intermittent, Less than 6 Hours Per Day (ICD-10-PCS; principal; 2020-12-12)
PROC: 5A1D70Z Performance of Urinary Filtration, Intermittent, Less than 6 Hours Per Day (ICD-10-PCS; 2020-12-14)
DX: A41.9 Sepsis, unspecified organism (principal); N18.6 End stage renal disease; E11.10 Type 2 diabetes mellitus with ketoacidosis without coma; J18.9 Pneumonia, unspecified organism; G92 Toxic encephalopathy; I21.A1 Myocardial infarction type 2; J96.01 Acute respiratory failure with hypoxia; R65.20 Severe sepsis without septic shock; D53.9 Nutritional anemia, unspecified; E11.51 Type 2 diabetes mellitus with diabetic peripheral angiopathy without gangrene; E87.2 Acidosis; I50.32 Chronic diastolic (congestive) heart failure; E11.22 Type 2 diabetes mellitus with diabetic chronic kidney disease; Z20.822 Contact with and (suspected) exposure to COVID-19; I13.2 Hypertensive heart and chronic kidney disease with heart failure and with stage 5 chronic kidney disease, or end stage renal disease; K21.9 Gastro-esophageal reflux disease without esophagitis; Z99.2 Dependence on renal dialysis; I27.20 Pulmonary hypertension, unspecified; E66.9 Obesity, unspecified; Z68.27 Body mass index [BMI] 27.0-27.9, adult; E87.1 Hypo-osmolality and hyponatremia; D63.1 Anemia in chronic kidney disease; Z89.512 Acquired absence of left leg below knee
CPT/HCPCS: 36415; 70450; 71045; 72125; 72170; 80048; 80053; 80061; 80074; 80320; 82140; 82550; 82728; 82805; 82962; 83615; 83735; 84100; 84145; 84443; 84484; 85025; 85027; 85379; 85610; 85730; 86140; 87040; 93005; 93306; 95819; 96374; G0378; A9270-GY; G0480; J0456; J0696; J1644; J1815; J2060; J2270; J2405; J2765; J7030; J7040; U0003